=== PATIENT | female | born 1955 | race Caucasian/White ===

== ENCOUNTER 2021-12-19 18:51 | Emergency (ER) | payer MEDICARE, BC, SELFPAY ==
[2021-12-19 19:12] VITALS: BP 123/99; PULSE 84; RESP 20; TEMP 37.1; O2SAT 97; BMI 33.7
--- NOTE | 2021-12-19 19:40 | ED.GENADULT ---
HPI - General Adult General Time Seen by Provider: 19:40 Date Seen: 12/19/21 Chief complaint: Weakness Stated complaint: Weak, legs swelling Time Seen by Provider: 12/19/21 19:03 Source: patient, family and RN notes reviewed Mode of arrival: ambulatory Limitations: no limitations History of Present Illness HPI narrative: Patient is a 60-year-old female coming in of her own accord accompanied by a female relative woman believes her daughter. Her main concern is her heart and swelling. She admits she has not felt right since having COVID October 13. Her daughter tested positive on October 11 and she tested positive 2 days later. Initially she was not that bad but 2 weeks in she states she became quite sick. She called the triage nurse today who recommended she be evaluated in the ER tonight. She feels both of her legs are swollen, feels like she has lost the indentation of the definition of the muscle on the side the legs and behind the ankle bones. She states her legs feel full. She feels short of breath particularly with activity. Going upstairs she states she gets quite winded. She states she is still coughing from the COVID but believes that 1 of her blood pressure medicines contributes to this. She is on losartan. She also has further concerns of feeling weak, arthralgias with elbows and wrists hurting. She states she gets tingling in her fingers. She has had a shooting pain in the right side of her head that is been there this week. No visual changes no other underlying headache changes. Her blood pressure has been elevated as well. She does have hypertension but prior to call that was controlled. She has been monitoring it has been in the 140s to 150s systolic. She has not noted any arrhythmia as such as palpitations or abnormal heart beating but then later she states sometimes her heart beat is been irregular on the pulse monitoring anywhere from 70-90. She does not feel this symptomatically however. She admittedly is concerned about her heart with the swelling in the legs. Her daughter wonders if she could have been acutely exposed to COVID again. Reviewed that we could test with antigen testing but that the PCR theroretically can remain positive for 3 months. Related Data Allergies Allergy/AdvReac Type Severity Reaction Status Date / Time adhesive Allergy Verified 12/19/21 19:12 hydrocodone Allergy Verified 12/19/21 19:12 morphine Allergy Verified 12/19/21 19:12 oxycodone Allergy Verified 12/19/21 19:12 topiramate [From Topamax] Allergy Verified 12/19/21 19:12 cats Allergy Uncoded 12/19/21 19:12 PFSH PFS Social History Smoking Status: Former smoker What tobacco products do you use: cigarettes Years smoked: 25 Smoking quit date/years: >15 years ago Do you use any of these nicotine containing products: None Second hand tobacco smoke exposure: No How often do you have a drink containing alcohol: never How often do you have six or more drinks on one occasion: Never AUDIT-C Alcohol total score: 0 Non-prescribed substance use: denies use service: No Exam Const: Vital Signs, click to edit/add: Vital Signs - 24 hr 12/19/21 19:12 12/19/21 21:01 12/19/21 21:00 Temperature 98.8 F Pulse Rate [Apical ] 84 100 Respiratory Rate 20 Blood Pressure [Le ft Upper Arm] 123/99 H Pulse Oximetry 97 96 96 Oxygen Delivery Me thod Room Air Room Air Documenting provider has reviewed patient's vital signs: yes Common normals: no apparent distress, oriented x3, no limitations, healthy appearing, alert and well nourished General appearance: cooperative, comfortable and well kempt Nutritional appearance: overweight HENMT: Common normals: normocephalic, head/scalp atraumatic, hearing grossly normal bilaterally, external ears normal, external nose normal, nasal mucous membranes and turbinates normal, moist oral mucous membranes, oropharynx normal, dentition normal and gingiva normal Head and scalp: normocephalic and atraumatic Nose: external nose normal and nasal mucous membranes and turbinates normal External ear: external ears normal Eye: Common normals: PERRL, EOMs intact bilaterally, conjunctivae normal and no scleral icterus Conjunctiva: conjunctiva(e) normal Pupil: PERRL Neck & C-Spine: Common normals: full ROM, no lymphadenopathy, supple, no meningeal signs, no JVD and thyroid normal Thyroid: thyroid normal Resp: Common normals: normal respiratory effort, no retractions, no use of accessory muscles and clear to auscultation bilaterally Auscultation: clear to auscultation bilaterally Cardio: Common normals: no JVD, regular rate, regular rhythm, S1 normal heart sound, S2 normal heart sound, no gallops, no clicks and no murmurs Rate: regular rate Rhythm: regular rhythm Heart sounds: S1 normal and S2 normal GI: Common normals: Normal to inspection, nondistended, normoactive bowel sounds present, soft to palpation, non-tender, no hepatosplenomegaly, no masses and no bruits Palpation: soft and no hepatosplenomegaly Extremity: Common normals: normal to inspection, full ROM, normal capillary refill, no joint enlargement, no clubbing, cyanosis or edema and no pedal edema Other: She does complain of bilateral calf tenderness when I palpate. I see absolutely no evidence of any edema, no pretibial edema anywhere, no edema on the dorsum of the feet. She is pointing more to work calves were she feels like she has lost some muscle definition that would normally be there. There really is no pitting edema but she is uncomfortable in her calves bilaterally. She has got good symmetric pulses, no skin changes whatsoever of her lower extremities. Neuro: Common normals: oriented x3, CN's II-XII intact bilaterally, moves all extremities, no focal motor deficits, no sensory deficits noted and gait normal Sensorium/orientation: alert Meningeal signs: no meningeal signs Speech: speech normal Psych: Appearance: well kempt Course Reevaluation(s) Reevaluation #1: Patient is requesting something for pain. She does have low back pain but states she also would like it for her legs which are feeling uncomfortable. Have reviewed with her that her white count is normal, chest x-ray looks normal an COVID antigen is negative. We are still waiting on cardiac labs. Her creatinine would allow us to do a 1 time dose of Toradol which she would like to try. I did look her up on [place] prescribing website and she has only had 1 prescription of a benzodiazepine back in May. She has allergies to multiple narcotics. She has been trying aspirin, Tylenol which she does not feel helps her much and Advil. Time: 20:48 Vital Signs Vital signs: Initial Vital Signs Temperature 98.8 F 12/19/21 19:12 Temperature Source Temporal Artery Scan 12/19/21 19:12 Pulse Rate 84 12/19/21 19:12 Pulse Rhythm 12/19/21 19:12 Respiratory Rate 20 12/19/21 19:12 Blood Pressure 123/99 H 12/19/21 19:12 Blood Pressure Mean 107 12/19/21 19:12 Pulse Oximetry 97 12/19/21 19:12 Oxygen Delivery Method 12/19/21 19:12 Vital Signs Temperature 98.8 F 12/19/21 19:12 Pulse Rate 84 12/19/21 19:12 Respiratory Rate 20 12/19/21 19:12 Blood Pressure 123/99 H 12/19/21 19:12 Pulse Oximetry 97 12/19/21 19:12 Oxygen Delivery Method 12/19/21 19:12 Temperature 98.8 F 12/19/21 19:12 Pulse Rate 100 12/19/21 21:01 Respiratory Rate 20 12/19/21 19:12 Blood Pressure 123/99 H 12/19/21 19:12 Pulse Oximetry 96 12/19/21 21:01 Oxygen Delivery Method 12/19/21 21:01 Medical Decision Making Lab Data Lab results reviewed: Yes I reviewed the patient's lab results Labs: Lab Results 12/19/21 12/19/21 12/19/21 Range/Units 20:04 20:05 20:05 WBC 6.65 (4.50-11.00) K/uL RBC 4.36 (4.00-5.20) m/uL Hgb 13.7 (12.0-16.0) gm/dL Hct 40.2 (33.0-51.0) % MCV 92 (80-100) fL MCH 31 (26-34) pg MCHC 34 (32-36) gm/dL RDW Coeff of Seth 12.3 (11.5-15.5) % Plt Count 231 (140-440) K/uL Neut % (Auto) 54.5 (42.0-72.0) % Lymph % (Auto) 34.0 (20-44) % [place] % (Auto) 8.1 (0.0-11.0) % Eos % (Auto) 2.6 (0.0-7.0) % Baso % (Auto) 0.5 (0.0-3.0) % Neut # (Auto) 3.63 (1.7-7.0) K/uL Lymph # (Auto) 2.26 (0.90-2.90) K/uL [place] # (Auto) 0.50 (0.00-0.90) K/UL Eos # (Auto) 0.17 (0.00-0.50) K/uL Baso # (Auto) 0.03 (0.00-0.30) K/uL Abs Immat Gran (auto) 0.02 (0.00-0.30) K/uL D-Dimer Quant (PE/DVT) (0.00-0.50) ug/ml VBG pH (7.32-7.43) VBG pCO2 (40-50) mmHG VBG pO2 (25-47) mmHG VBG HCO3 (21-28) mmol/L Sodium Cancelled Potassium Cancelled Chloride Cancelled Carbon Dioxide Cancelled BUN Cancelled Creatinine Cancelled Estimated Creat Clear Cancelled Estimated GFR Cancelled Glucose Cancelled Calcium Cancelled Magnesium (1.5-2.6) mg/dL Total Bilirubin Cancelled AST Cancelled ALT Cancelled Alkaline Phosphatase Cancelled Troponin I (0.01-0.04) ng/mL C-Reactive Protein Cancelled NT-Pro-B Natriuret Pep (0-125) PG/mL Total Protein Cancelled Albumin Cancelled SARS-CoV-2 Ag (Rapid) negative (Negative) 12/19/21 12/19/21 12/19/21 Range/Units 20:05 20:05 20:05 WBC (4.50-11.00) K/uL RBC (4.00-5.20) m/uL Hgb (12.0-16.0) gm/dL Hct (33.0-51.0) % MCV (80-100) fL MCH (26-34) pg MCHC (32-36) gm/dL RDW Coeff of Seth (11.5-15.5) % Plt Count (140-440) K/uL Neut % (Auto) (42.0-72.0) % Lymph % (Auto) (20-44) % [place] % (Auto) (0.0-11.0) % Eos % (Auto) (0.0-7.0) % Baso % (Auto) (0.0-3.0) % Neut # (Auto) (1.7-7.0) K/uL Lymph # (Auto) (0.90-2.90) K/uL [place] # (Auto) (0.00-0.90) K/UL Eos # (Auto) (0.00-0.50) K/uL Baso # (Auto) (0.00-0.30) K/uL Abs Immat Gran (auto) (0.00-0.30) K/uL D-Dimer Quant (PE/DVT) 0.27 (0.00-0.50) ug/ml VBG pH 7.44 H (7.32-7.43) VBG pCO2 43 (40-50) mmHG VBG pO2 32.3 (25-47) mmHG VBG HCO3 29 H (21-28) mmol/L Sodium 136 Potassium 3.8 Chloride 103 Carbon Dioxide 25 BUN 22 Creatinine 1.1 Estimated Creat Clear 40.49 Estimated GFR 55 Glucose 115 Calcium 9.0 Magnesium 1.9 (1.5-2.6) mg/dL Total Bilirubin 0.3 AST 27 ALT 27 Alkaline Phosphatase 68 Troponin I < 0.01 L (0.01-0.04) ng/mL C-Reactive Protein 0.5 NT-Pro-B Natriuret Pep 82 (0-125) PG/mL Total Protein 7.4 Albumin 4.2 SARS-CoV-2 Ag (Rapid) (Negative) Imaging Data Chest x-ray: Attestation: I have reviewed the pertinent imaging results. Radiologist's impression: Patient: LEÓN CARTAGENA Facility:?[facility] Patient ID:?[id number] Site Patient ID:?[id number]. Site :?[id number] Study:?XRay Chest PORTABLE-12/19/2021 8:19:35 PM Ordering Physician:Mal Rodriguez Final Report: INDICATION: [id number]. TECHNIQUE: Chest 1 views. COMPARISON: None. FINDINGS: Cardiovascular and mediastinum: Heart size and vasculature are normal in caliber and appearance. Lungs and pleural spaces: Elevation the right hemidiaphragm. Low lung volumes. Lungs are clear. No sign of infiltrate or mass. No sign of pleural effusion. No pneumothorax. Bones and soft tissues: No significant findings. IMPRESSION: No acute or significant findings. Dictated by Sheng Adams MD @ 12/19/2021 8:23:20 PM (Electronic Signature) ECG Data Attestation: I personally reviewed and interpreted this ECG as follows: (Sinus rhythm, 84 beats per minute. QT corrected 515 milliseconds. Left bundle branch block.) Prior ECG tracings: not available for review (No prior EKGs in our system.) Interpretation: Have reviewed left bundle branch block in setting of normal cardiac enzymes, would recommend further outpatient workup with an echo to start with. Critical Care Time Critical Care Time Critical Care Time: No Discharge Plan Discharge Clinical Impression: Dyspnea on exertion, LBBB (left bundle branch block) Patient Disposition: Home, Self-Care Condition: Stable Instructions: Dyspnea (ED) Additional Instructions: Need to contact our clinic in get scheduled for followup as soon as possible. I do believe you need an outpatient echo done for further evaluation of your symptoms and to further evaluate the EKG showing left bundle branch block if this is a new finding. You also need to talk to your doctor about your other complaints. One thought is that you may be suffering from lung COVID symptoms. You still need further evaluation and workup regardless. I would like you to see your doctor within the next week if possible. Activity Level: Activity as Tolerated Follow Up/Referrals: Provider,Not a Local [Primary Care Provider] - Stand Alone Forms: Social Media Simplified Info Instructions
--- NOTE | 2021-12-19 19:54 | CRLHL7_ITS ---
For Patients: As a result of the Century Cures Act, medical imaging exams and procedure reports are released immediately into your electronic medical record. You may view this report before your referring provider. If you have questions, please contact your health care provider. INDICATION: [id number]. TECHNIQUE: Chest 1 views. COMPARISON: None. FINDINGS: Cardiovascular and mediastinum: Heart size and vasculature are normal in caliber and appearance. Lungs and pleural spaces: Elevation the right hemidiaphragm. Low lung volumes. Lungs are clear. No sign of infiltrate or mass. No sign of pleural effusion. No pneumothorax. Bones and soft tissues: No significant findings. IMPRESSION: No acute or significant findings. Dictated by Sheng Adams MD @ 12/19/2021 8:23:20 PM (Electronically Signed)
[2021-12-19 20:11] LABS: Basophils Absolute Auto 0.03 K/uL (0.00-0.30); Basophils Percent Auto 0.5 % (0.0-3.0); Eosinophils Absolute Auto 0.17 K/uL (0.00-0.50); Eosinophils Percent Auto 2.6 % (0.0-7.0); Hematocrit 40.2 % (33.0-51.0); Hemoglobin* 13.7 gm/dL (12.0-16.0); Immature Granulocytes Abs Auto 0.02 K/uL (0.00-0.30); Lymphocytes Absolute Auto 2.26 K/uL (0.90-2.90); Mean Corpuscular HGB Conc 34 gm/dL (32-36); Mean Corpuscular Hemoglobin 31 pg (26-34); Mean Corpuscular Volume 92 fL (80-100); Monocytes Percent Auto 8.1 % (0.0-11.0); Neutrophils Absolute Auto 3.63 K/uL (1.7-7.0); Neutrophils Percent Auto 54.5 % (42.0-72.0); Platelet Count* 231 K/uL (140-440); RDW Coefficient of Variation % 12.3 % (11.5-15.5); Red Blood Count 4.36 m/uL (4.00-5.20); White Blood Count* 6.65 K/uL (4.50-11.00)
[2021-12-19 20:12] LABS: HCO3 VBG 29 mmol/L (21-28); PCO2 VBG 43 mmHG (40-50); PO2 VBG 32.3 mmHG (25-47); Slide Review Reflex No; pH VBG 7.44 (7.32-7.43)
[2021-12-19 20:26] LABS: SARS Antigen* negative (Negative)
[2021-12-19 20:27] LABS: Albumin* 4.2 g/dL (3.3-5.0); Chloride* 103 mmol/L (96-114)
[2021-12-19 20:28] LABS: Potassium* 3.8 mmol/L (3.6-5.1); Sodium* 136 mmol/L (135-149)
[2021-12-19 20:30] LABS: Creatinine* 1.1 mg/dL (0.5-1.5); Est. Creatinine Clearance* 40.49; Estimated Glomerular Filt Rate 55 ml/min
--- OUTSIDE RECORDS SUMMARY | 2021-12-19 20:30 | XMS_ITS | Encounter Summary ---
:1955 Author Organization [facility] Address [address] [place] [address] Care Team Providers Name Role Phone Unavailable Primary Care Provider Unavailable Encounter Details Date Type Department Care Team Description 04/10/2015 Hospital Encounter [facility]X [facility] Singh Szymanski, P.A.-CAugusto [address], [place] [address] Social History Tobacco Use Types Packs/Day Years Used Date Smoking Tobacco: Never Assessed Sex Assigned at Date Recorded Not on file documented as of this encounter Medications at Time of Discharge Medication Sig Dispensed Refills Start Date End Date calcium carbonate (OS-KMEAL) Take 1 tablet by 0 1,250 mg (500 mg calcium) mouth 2 (two) tablet times a day. docosahexaenoic acid-epa Take 1,000 mg by 0 05/20 120-180 mg capsule mouth. hydroCHLOROthiazide Take 1 tablet by 0 05/18/2012 (HYDRODIURIL) 25 mg tablet mouth daily. losartan (COZAAR) 50 mg tablet Take 1 tablet by 0 05/18/2012 mouth daily. iqyhawtwgrbi-Xy-eucm-minerals Take 2 tablets by 0 05/20/2011 tablet mouth 2 (two) times a day. omeprazole (PriLOSEC) [address] Take by mouth. 0 0 05/18/2012 capsule documented as of this encounter Progress Notes Maria Antonia Kidd, O.P.A.-C. - 04/10/2015 2:33 PM CST [id number] CHIEF COMPLAINT/REASON FOR VISIT Followup of right intraarticular fracture of the right wrist/distal radius. HISTORY OF PRESENT ILLNESS Ms. Hedrick presents to clinic today for followup of right upper extremity/distal radius fracture initially injured on 02/13/2015. Patient was seen the Emergency Department, splinted, and followed up in the Department of Orthopedics on 02/16/2015 where after examination there was a high index of suspicion of further injury. So a CT scan was requested. CT scan was 02/23/2015. Shows an increasing obliquely oriented, slightly comminuted intraarticular fracture involving the distal right radial metaphysis, approximately 2 mm articular step-off, and a possible subacute avulsion fracture along the dorsal aspect of the STT joint. Dr. Tavares reviewed the x-rays and recommended we put her in a cast forno less than 6 weeks. It has now exceeded the 6-week savanna since casting. The patient is making sequential visits for the healing process which she has been doing remarkably well. She denies any furtherinjury or trauma to the right upper extremity. Patient is right-hand dominant. MEDICATIONS As per electronic medical record without changes dated 04/10/2015. ALLERGIES Per electronic medical record without changes dated 04/10/2015. VITAL SIGNS Please see electronic medical record under nursing notes dated 04/10/2015. PHYSICAL EXAMINATION GENERAL: Ms. Hedrick is a 60-year-old female in no acute distress. Ambulatory, weight-bearing with age in consideration. Oriented x3. EXTREMITIES: Cast was removed from the right upper extremity. There was no edema, erythema, ecchymosis, deformity, or tenderness to palpation of the fracture site. Range of motion was somewhat diminished secondary to prolonged immobilization. Digits were with full active range of motion with neurovascular intact to include all digits. DIAGNOSTICS X-rays today showed a very well-resolving right distal radius fracture. IMPRESSION/REPORT/PLAN Resolving right distal radius fracture. PLAN: We did transition her into a foam fit brace today medium size right, and recommend that she begin range of motion and strengthening exercises. Also encouraged her to begin range of motion activities for restrengthening, reconditioning, and rehabilitation. The patient agreed to this. The patient was very satisfied with the clinical visit. Will follow up in approximately 1 month. All questions were answered. Maria Antonia Kidd P.A.-C./baudilio Electronically Signed By: MARIA ANTONIA KIDD On: 04/13/2015 02:46 PM Source: [facility] MHSDOLBEYNONRADSYS Document Id: [id number] BATOR OPERATOR documented in this encounter Miscellaneous Notes Miscellaneous - Maria Antonia Kidd O.P.A.-C. - 04/10/2015 3:38 PM INCUBATOR OPERATOR Ambulatory Patient Summary [facility] [address] [place] [id number] Visit Information Name: ARA HEDRICK [facility] Number: [id number] Current Date: 04/10/2015 15:38:18 Physicians Attending Provider: MARIA ANTONIA KIDD Primary Care Provider: ALYSHA HOPPER MD ARA HEDRICK has been given the following list of follow-up instructions, medication list, and patient education materials: Follow-up Instructions Your Medications Here is a list of your medications. It is important to take your medications as directed. Use a pillbox or chart to help remind you to take your medications. Please let your doctor or nurse know if you have problems taking your medications. Medication/Strength How to Take Indications/Special Instructions/Comments/Notes for Patient Medication Changes/Routing busPIRone (BuSpar) Oral, three times a day hydrochlorothiazide (hydrochlorothiazide) Oral, once a day LORazepam (LORazepam) losartan (losartan) Oral, once a day meloxicam (meloxicam) Oral, once a day omeprazole (omeprazole) Oral, once a day traZODone (traZODone) Oral venlafaxine (Effexor) Oral Stop Taking the Following Medications: Medication list as of 04-10-15 15:38 Attention: If you have any medications at home that are not on this list, DO NOT take them until youcontact your provider for clarification. Give a copy of your medication list to your primary care provider. Update your medication list any time medications or doses are changed and carry your medication list at all times in case of emergency. Electronically Signed By: MARIA ANTONIA KIDD Signed On:10-APR-2015 15:22:16 Your Allergies & Intolerances Substance Reaction Symptoms Category Comments beta blockers Drug Topamax Drug Lyrica Drug HYDROcodone Drug oxyCODONE Drug Your Problem List Problem Status Onset Comments Major depressive disorder, recurrent, unspecified Active Your Upcoming Appointments Date Time Location Provider No Appointments found Attention: Contact your local Clinic if further appointment detail needed. Consider Using Patient Online Services Patient Online Services is a secure online and Mobile application that lets you: ?? View lab and test results ?? View portions of your medical record including clinical notes, immunizations and discharge summaries ?? Request an appointment or medication refill ?? Review your appointment schedule ?? Send secure messages to your care team Its easy to create an account if you dont have one. Go to [email or web address] and click on Create Your Account. Then, follow the directions to complete the online form. Youll be asked for your [facility] number which you can find at the top of this document. Your Goals/Additional instructions: Source: [facility] POWERCHART Document Id: [id number] BATOR OPERATOR Miscellaneous - Maria Antonia Kidd O.P.A.-C. - 04/10/2015 3:38 PM INCUBATOR OPERATOR Ambulatory Discharge Medication List [facility] [address] [place] [id number] Visit Information Name: ARA HEDRICK [facility] Number: [id number] Visit Date: 04/10/2015 15:38:17 Attending Provider: MARIA ANTONIA KIDD Primary Care Provider: ALYSHA HOPPER MD ARA HEDRICK has been given the following list of medications: Your Medications It is important to take your medications as directed. Use a pill box or chart to help remind you to take your medications. Please let your doctor or nurse know if you have problems taking your medications. Medication/Strength How to Take Indications/Special Instructions/Comments/Notes for Patient Medication Changes/Routing busPIRone (BuSpar) Oral, three times a day hydrochlorothiazide (hydrochlorothiazide) Oral, once a day LORazepam (LORazepam) losartan (losartan) Oral, once a day meloxicam (meloxicam) Oral, once a day omeprazole (omeprazole) Oral, once a day traZODone (traZODone) Oral venlafaxine (Effexor) Oral Stop Taking the Following Medications: Medication list as of 04-10-15 15:38 Attention: If you have any medications at home that are not on this list, DO NOT take them until youcontact your provider for clarification. Give a copy of your medication list to your primary care provider. Update your medication list any time medications or doses are changed and carry your medication list at all times in case of emergency. Electronically Signed By: MARIA ANTONIA KIDD PA Signed On:10-APR-2015 15:22:16 Additional Information: Source: [facility] POWERCHART Document Id: [id number] BATOR OPERATOR Miscellaneous - Melvi De L.PAugustoNAugusto - 04/10/2015 2:38 PM CST Adult Oracle Adf Developer Intake/History Adult Oracle Adf Developer Intake/History Entered On: 04/10/2015 14:40 INCUBATOR OPERATOR Performed On: 04/10/2015 14:38 INCUBATOR OPERATOR by MELVI DE LPN Intake Chief Complaint : Recheck right distal radius fx. Arrives in [facility]. Onset of Symptoms : 01/30/15 MELVI DE LPN - 04/10/2015 14:38 INCUBATOR OPERATOR General Info Information Given By : Patient Languages : Faroese Is Patient Female and 13-50 no hysterectomy : No MELVI DE LPN - 04/10/2015 14:38 INCUBATOR OPERATOR Subjective Pain Symptoms : No MELVI DE LPN - 04/10/2015 14:38 INCUBATOR OPERATOR Dependent Habits Exposure to Tobacco Smoke : Other: former Smoking Status : Former smoker Tobacco 2A : Yes Tobacco Use/Currently Using : No Tobacco Use/Last 30 Days : No Tobacco Use/Last 12 months : No Tobacco Last Use/Month : March Tobacco Last Use/Year : 1992 MELVI DE LPN - 04/10/2015 14:38 INCUBATOR OPERATOR Caffeine Use Grid Caffeine Use : Current Type : Coffee Frequency : Daily MELVI DE LPN - 04/10/2015 14:38 INCUBATOR OPERATOR Source: [facility] POWERCHART Document Id: [id number] INCUBATOR OPERATOR!24 BATOR OPERATOR documented in this encounter Plan of Treatment Not on filedocumented as of this encounter Procedures Procedure Name Priority Date/Time Associated Diagnosis Comme nts DX WRIST RIGHT 3+ Routine 04/10/2015 2:51 PM Resu lts for this VIEWS INCUBATOR OPERATOR procedure are i n the results section. documented in this encounter Results DX Wrist Right 3+ Views (04/10/2015 2:51 PM INCUBATOR OPERATOR) Anatomical Region Laterality Modality Upper Extremity, Wrist Right Radiographic Imag ing Specimen (Source) Anatomical Collection Method Collection Time Re ceived Time Location / / Volume Laterality 04/10/2015 2:51 PM INCUBATOR OPERATOR Addenda Addendum by Provider, Samra Booker 04/10/2015 2:51 PM INCUBATOR OPERATOR RAD^^^OW XR Wrist Right 3 or more views 04/10/2015 14:51:52 Impressions 04/11/2015 11:57 AM INCUBATOR OPERATOR Skeletally mature individual. Good bone quality. Has a healing radial styloid fracture. Fractur e goes into the radio scaphoid fossa. Fracture has some depres kenan about 2 to 3 mm. Fracture does look to be healing. Also h as a displaced ulnar styloid fracture which may be more chronic. Narrative 04/11/2015 11:57 AM INCUBATOR OPERATOR EXAM: XR Wrist Right 3 or more views INDICATION: right distal radius fracture COMPARISON: None. Procedure Note Gregg Zuniga M.D. / Provider, Birgit cazares M.D. - 07/25/2016 EXAM: XR Wrist Right 3 or more views INDICATION: right distal radius fracture COMPARISON: None. IMPRESSION: Skeletally mature individual . Good bone quality. Has a healing radial styloid fracture. Fractur e goes into the radio scaphoid fossa. Fracture has some depres kenan about 2 to 3 mm. Fracture does look to be healing. Also h as a displaced ulnar styloid fracture which may be more chronic. Historical Provider IMG DIAGNOSTIC IMAGING PROCE CHEL documented in this encounter Visit Diagnoses Not on filedocumented in this encounter Additional Health Concerns Assessment Noted Time PHQ-9 Depression Total Score: 20 02/13/2015 2:45 PM CS T documented as of this encounter
--- OUTSIDE RECORDS SUMMARY | 2021-12-19 20:30 | XMS_ITS | Encounter Summary ---
:1955 Author Organization [facility] Address [address] [place] [address] Care Team Providers Name Role Phone Unavailable Primary Care Provider Unavailable Encounter Details Date Type Department Care Team Description 11/10/2016 Hospital Encounter HX [facility] Arabella Mauricio M.D. [address] [place], [place] [phone] (Wo rk) Social History Tobacco Use Types Packs/Day Years Used Date Smoking Tobacco: Unknown Sex Assigned at Date Recorded Not on file documented as of this encounter Medications at Time of Discharge Medication Sig Dispensed Refills Start Date End Date calcium carbonate (OS-KEMAL) Take 1 tablet by 0 1,250 mg (500 mg calcium) mouth 2 (two) tablet times a day. docosahexaenoic acid-epa Take 1,000 mg by 0 05/20 120-180 mg capsule mouth. hydroCHLOROthiazide Take 1 tablet by 0 05/18/2012 (HYDRODIURIL) 25 mg tablet mouth daily. losartan (COZAAR) 50 mg tablet Take 1 tablet by 0 05/18/2012 mouth daily. iwqyxhnnwgbk-Pc-igwr-minerals Take 2 tablets by 0 05/20/2011 tablet mouth 2 (two) times a day. omeprazole (PriLOSEC) [address] Take by mouth. 0 0 05/18/2012 capsule documented as of this encounter Progress Notes Arabella Mauricio M.D. - 11/10/2016 10:55 AM CDT [id number] HISTORY OF PRESENT ILLNESS León is a pleasant 66-year-old female who comes in today for her left shoulder. She had left shoulder pain for about 3 weeks. She thinks she has bursitis. She had it in her contralateral shoulder years ago and it responded well to injection. She feels like she is losing some strength. She has pain at night that wakes her up every night from sleep. She has some weakness with her arm out to her side. It does radiate down the side of her arm. PHYSICAL EXAMINATION Her left shoulder skin is benign. She has tenderness over the biceps tendon sheath. She has no AC joint tenderness. She had 160 degrees of active abduction but does hesitate above 90 degrees. She has 5- out of 5 strength to resisted abduction. She has good internal and external rotation. She has positive Neer and Gunderson impingement signs. She is otherwise neurovascularly intact. IMPRESSION/REPORT/PLAN León's symptoms are consistent with left shoulder impingement and subacromial bursitis. At this point, I do think a cortisone injection would benefit her as she has responded well to cortisone in multiple joints previously. Risks, benefits, alternatives to a left shoulder subacromial corticosteroidinjection were explained. She agreed to proceed. Her left shoulder sterilely prepped with ChloraPrep. A final pause performed using a 21-gauge needle to inject 8 mL of 1% lidocaine and 9 mg of Celestone. She tolerated this well without complication. We will plan on seeing her back in clinic on an as-needed basis. Arabella Mauricio M.D./baudilio Electronically Signed By: ARABELLA MAURICIO MD On: 11/10/2016 12:19 PM Source: [facility] MHSDOLBEYNONRADSYS Document Id: [id number] documented in this encounter Miscellaneous Notes Telephone Encounter - Brennen Benitez C.M.A. - 11/19/2016 11:47 AM CDT Courtesy Call From: BRENNEN BENITEZ CMA ( Orthopedic Nurse) To: Orthopedic Nurse; Sent: 11/19/2016 11:47:53 CDT Subject: Courtesy Call S - Cortisone injection follow up B - Patient seen on 11/10/[address] Mauricio and given a left shoulder cortisone injection A - Courtesy Call R - Left message to call back Source: [facility] POWERCHART Document Id: [id number] Miscellaneous - Arabella Mauricio M.D. - 11/10/2016 11:18 AM CDT Ambulatory Patient Summary [address] [id number] Visit Information Name: OSIEL LEÓN Pancho [facility] Number: [id number] Current Date: 11/10/2016 11:18:52 Physicians Attending Provider: ARABELLA MAURICIO MD Primary Care Provider: PCP, LEÓN PEPE has been given the following list of [...] Take Indications/Special Instructions/Comments/Notes for Patient Medication Changes/Routing hydrochlorothiazide (hydrochlorothiazide) Oral, once a day losartan (losartan) Oral, once a day omeprazole (omeprazole) Oral, once a day traZODone (traZODone) Oral venlafaxine (Effexor) Oral Stop Taking the Following Medications: busPIRone (BuSpar) LORazepam (LORazepam) meloxicam (meloxicam) Medication list as of 11-10-16 11:18 Attention: If you have any medications at home that are not on this list, DO NOT take them until youcontact your provider for clarification. Give a copy of your medication list to your primary care provider. Update your medication list any time medications or doses are changed and carry your medication list at all times in case of emergency. Electronically Signed By: ARABELLA MAURICIO MD Signed On:10-NOV-2016 11:18:49 Your Allergies & Intolerances Substance Reaction Symptoms [...] if you dont have one. Go to [email or web address] and click on Create Your Account. Then, follow the directions to complete the online form. Youll be asked for your [facility] number which you can find at the top of this document. Your Goals/Additional instructions: Source: [facility] POWERCHART Document Id: [id number] Miscellaneous - Arabella Mauricio M.D. - 11/10/2016 11:18 AM CDT Ambulatory Discharge Medication List [address] [id number] Visit Information Name: LEÓN HEDRICK [facility] Number: [id number] Current Date: 11/10/2016 11:18:51 Attending Provider: ARABELLA MAURICIO MD Primary Care Provider: PCP, ELSEWHERE LEÓN HEDRICK has been given the following list of medications: Your Medications It is important to take your medications as directed. Use a pill box or chart to help remind you to take your medications. Please let your doctor or nurse know if you have problems taking your medications. Medication/Strength How to Take Indications/Special Instructions/Comments/Notes for Patient Medication Changes/Routing hydrochlorothiazide (hydrochlorothiazide) Oral, once a day losartan (losartan) Oral, once a day omeprazole (omeprazole) Oral, once a day traZODone (traZODone) Oral venlafaxine (Effexor) Oral Stop Taking the Following Medications: busPIRone (BuSpar) LORazepam (LORazepam) meloxicam (meloxicam) Medication list as of 11-10-16 11:18 Attention: If you have any medications at home that are not on this list, DO NOT take them until youcontact your provider for clarification. Give a copy of your medication list to your primary care provider. Update your medication list any time medications or doses are changed and carry your medication list at all times in case of emergency. Electronically Signed By: ARABELLA MAURICIO MD Signed On:10-NOV-2016 11:18:49 Additional Information: Source: [facility] POWERCHART Document Id: [id number] Miscellaneous - Brennen Benitez C.MEdward - 11/10/2016 11:05 AM CDT Adult Metabolic Specialist Intake/History Adult Metabolic Specialist Intake/History Entered On: 11/10/2016 11:07 CDT Performed On: 11/10/2016 11:05 CDT [address] B[address]ITEZ [facility] Intake Chief Complaint : Left shoulder pain for about three weeks, no trauma. Pain is constant, more painful with motion. Losing strength Ambulatory Intake Additional Information : Refused vitals BRENNEN BENITEZ [facility] - 11/10/2016 11:05 CDT General Info Information Given By : Patient Preferred Communication Mode : Verbal Languages : Citizen Of [place] Is Patient Female and 13-50 no hysterectomy : No BRENNEN BENITEZ [facility] - 11/10/2016 11:05 CDT Subjective Pain Symptoms : Yes BRENNEN BENITEZ [facility] - 11/10/2016 11:05 CDT Pain Scale Pain Scale Verbal 0-10 : Open BRENNEN BENITEZ [facility] - 11/10/2016 11:05 CDT Pain Pain Assessment Grid Pain 1 Location : Shoulder Laterality : Left Intensity : [address] [facility] - 11/10/2016 11:05 CDT Dependent Habits Exposure to Tobacco Smoke : Other: former Smoking Status : Former smoker Tobacco 2A : Yes Tobacco Use/Currently Using : No Tobacco Use/Last 30 Days : No Tobacco Use/Last 12 months : No Tobacco Last Use/Month : March Tobacco Last Use/Year : [address] [facility] - 11/10/2016 11:05 CDT Caffeine Use Grid Caffeine Use : Current Type : Coffee Frequency : Daily BRENNEN BENITEZ [facility] - 11/10/2016 11:05 CDT Source: [employer] Document Id: [id number] CDT!33 documented in this encounter Plan of Treatment Not on filedocumented as of this encounter Visit Diagnoses Not on filedocumented in this encounter Additional Health Concerns Assessment Noted Time PHQ-9 Depression Total Score: 20 02/13/2015 2:45 PM CS T documented as of this encounter
--- OUTSIDE RECORDS SUMMARY | 2021-12-19 20:30 | XMS_ITS | Encounter Summary ---
:1955 Author Organization [facility] Address [address] [place] [address] Care Team Providers Name Role Phone Unavailable Primary Care Provider Unavailable Encounter Details Date Type Department Care Team Description 02/16/2015 Hospital Encounter HX [facility] Singh Szymanski, P.A.-CAugusto [address] [place], [place] [address] Social History Tobacco Use [...] 1 tablet by 0 05/18/2012 mouth daily. sdpmwujqsxon-Fa-itft-minerals Take 2 tablets by 0 05/20/2011 tablet mouth 2 (two) times a day. omeprazole (PriLOSEC) [address] Take by mouth. 0 0 05/18/2012 capsule documented as of this encounter Progress Notes Maria Antonia Kidd, O.P.A.-C. - 02/16/2015 1:31 PM CST [id number] CHIEF COMPLAINT/REASON FOR VISIT Follow up of right wrist pain. HISTORY OF PRESENT ILLNESS Ms. Hedrick presents to clinic today complaining of right wrist pain. Patient states that she fell,described as a FOOSH-type injury impacting her right wrist and she was seen in Emergency Department.X-rays were taken, which showed an index of suspicion of a minimally, impacted, acute subacute fracture involving the distal right radial metaphysis. Dr. Zuniga did review the x-rays and recommended the patient follow up in clinic based on the physical examination and CT scan. Patient prior to departure from the emergency department, she was put into a thumb spica foam fit brace, which she states is very uncomfortable as it puts pressure where she is most tender. She identifies the distal radius/the scaphoid as point of most tenderness. She denies any further injury or trauma to the right upper extremity. Patient is left-hand dominant. MEDICATIONS As per electronic medical record without changes dated 02/16/2015. ALLERGIES Per electronic medical record without changes, 02/16/2015. VITAL SIGNS Please see electronic medical record under nursing notes 02/16/2015. PHYSICAL EXAMINATION GENERAL: Ms. Hedrick is a 59-year-old female in no acute distress. Ambulatory, weightbearing without limp. Oriented x3. EXTREMITIES: Right wrist presents without edema, erythema, ecchymosis or deformity. There was tenderness to palpation at the distal radius and the scaphoid with palpation. Raquel's was mildly positive. Gamekeeper's was negative. Wrist range of motion was somewhat delayed secondary to patient guard ing the distal radius/scaphoid. There is 5/5 lens grinder and polisher strength. No elicitation of pain proximately and there is full active range of motion all joints distally. DIAGNOSTICS X-rays, 02/13/2015, were reviewed. IMPRESSION/REPORT/PLAN As per Dr. Zuniga's directives, if physical examination left a high index of suspicion of an occult fracture, a CT scan will be ordered. We did order a CT scan for her today. Recommended she wear her brace loosely, so that way when I add pressure over the injury site and follow up CT results. Patient was very satisfied with clinical visit. All questions were answered. Maria Antonia Kidd P.A.-C./baudilio Electronically Signed By: MARIA ANTONIA KIDD On: 02/23/2015 01:16 PM Source: [facility] MHSDOLBEYNONRADSYS Document Id: [id number] MAN documented in this encounter Miscellaneous Notes Miscellaneous - Maria Antonia Kidd O.P.A.-C. - 02/16/2015 2:13 PM SLIPMAN Ambulatory Patient Summary [facility] [address] [place], [place] [id number] Visit Information Name: LEÓN HEDRICK [facility] Number: [id number] Current Date: 02/16/2015 14:13:30 Physicians Attending Provider: MARIA ANTONIA KIDD Primary Care Provider: ALYSHA HOPPER MD LEÓN HEDRICK has been given the following [...] the Following Medications: Medication list as of 02-16-15 14:13 Attention: If you have any medications at [...] Electronically Signed By: MARIA ANTONIA KIDD Signed On:16-FEB-2015 14:13:15 Your Allergies & Intolerances Substance Reaction Symptoms Category Comments beta blockers Drug Lyrica Drug HYDROcodone Drug oxyCODONE Drug Your Problem List Problem Status Onset Comments Major depressive disorder, recurrent, unspecified Active Your Upcoming Appointments Date Time Location Provider 03/06/2015 14:00 [facility] Alysha Galvan MD Attention: Contact your local Clinic if further [...] if you dont have one. Go to [email or web address] and click on Create Your Account. Then, follow the directions to complete the online form. Youll be asked for your [facility] number which you can find at the top of this document. Your Goals/Additional instructions: Source: [facility] POWERCHART Document Id: [id number] MAN Miscellaneous - Maria Antonia Kidd O.P.A.-C. - 02/16/2015 2:13 PM SLIPMAN Ambulatory Discharge Medication List [facility] [address] [place] [id number] Visit Information Name: LEÓN HEDRICK [facility] Number: [id number] Visit Date: 02/16/2015 14:13:29 Attending Provider: MARIA ANTONIA KIDD Primary Care Provider: ALYSHA HOPPER MD LEÓN HEDRICK has been given the following [...] the Following Medications: Medication list as of 02-16-15 14:13 Attention: If you have any medications at [...] Electronically Signed By: MARIA ANTONIA KIDD Signed On:16-FEB-2015 14:13:15 Additional Information: Source: [facility] Document Id: [id number] MAN Miscellaneous - Ivis Stephens RAugustoN. - 02/16/2015 1:44 PM CST Radiology Scheduling Questionnaire Radiology Scheduling Questionnaire Entered On: 02/16/2015 13:45 SLIPMAN Performed On: 02/16/2015 13:44 SLIPMAN by IVIS STEPHENS LPN Radiology Scheduling Questionnaire Rad/Relevan Medications Grid Amiodarone : No Avandamet : No Glucophage : No Glucovance : No Metaglip : No Metformin : No Coumadin (warfarin) : No Plavix (clopidogrel) : No IVIS STEPHENS LPN - 02/16/2015 13:44 SLIPMAN Rad/Iodinated Contrast Risk Grid Asthma : No CHF : No Chronic Renal Failure : No Diabetes : No Dialysis : No Dyspnea : No Emphysema/COPD : No Gout : No Hay Fever : No Iodine Allergy : No Multiple Myeloma : No One Kidney : No : No Previous MT : No Other (document in Comments) : No IVIS STEPHENS LPN - 02/16/2015 13:44 SLIPMAN Previous Films : No Previous Films Requested Today : No IVIS STEPHENS LPN - 02/16/2015 13:44 SLIPMAN Source: [facility] Document Id: [id number] SLIPMAN!29 MAN Miscellaneous - Ivis Stephens, RAugustoN. - 02/16/2015 1:37 PM CST Adult Cooker Sulfite Intake/History Adult Cooker Sulfite Intake/History Entered On: 02/16/2015 13:38 SLIPMAN Performed On: 02/16/2015 13:37 SLIPMAN by IVIS STEPHENS [facility] Intake Chief Complaint : right wrist pain xray done 02/13/[address] or wrist IVIS STEPHENS LPN - 02/16/2015 13:37 SLIPMAN General Info Information Given By : Patient Languages : Ivorian Is Patient Female and 13-50 no hysterectomy : No IVIS STEPHENS LPN - 02/16/2015 13:37 SLIPMAN Subjective Pain Symptoms : Yes IVIS STEPHENS LPN - 02/16/2015 13:37 SLIPMAN Pain Scale Pain Scale Verbal 0-10 : Open IVIS STEPHENS LPN - 02/16/2015 13:37 SLIPMAN Pain Pain Assessment Grid Pain 1 Location : Wrist Laterality : Right IVIS STEPHENS LPN - 02/16/2015 13:37 SLIPMAN Dependent Habits Tobacco Use/Currently Using : No Exposure to Tobacco Smoke : Other: former Smoking Status : Former smoker IVIS STEPHENS LPN - 02/16/2015 13:37 SLIPMAN Caffeine Use Grid Caffeine Use : Current Type : Coffee Frequency : Daily IVIS STEPHENS LPN - 02/16/2015 13:37 SLIPMAN [facility] Document Id: [id number] SLIPMAN!25 MAN documented in this encounter Plan of Treatment Not on filedocumented as of this encounter Visit Diagnoses Not on filedocumented in this encounter Additional Health Concerns Assessment Noted Time PHQ-9 Depression Total Score: 20 02/13/2015 2:45 PM CS T documented as of this encounter
--- OUTSIDE RECORDS SUMMARY | 2021-12-19 20:30 | XMS_ITS | Encounter Summary ---
:[address] [facility] Address [address] [place] [address] Care Team Providers Name Role Phone Unavailable Primary Care Provider Unavailable Encounter Details Date Type Department Care Team Description 03/06/2015 Hospital Encounter HX NO MAPPING Micheline Mcknight M.D. [address] [place], [place] [phone] (Wo rk) Social History [...] 1 tablet by 0 05/18/2012 mouth daily. yfmuskuzfasl-Fy-cuzx-minerals Take 2 tablets by 0 05/20/2011 tablet mouth 2 (two) times a day. omeprazole (PriLOSEC) [address] Take by mouth. 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 However, the narrative phrase printed from the coding software may appear abbreviated, or result in slightly different terminology. Coded By: CHRISTIANO LOCKHART Date Saved: 03/14/2015 06:42 pm [facility] Document Id: [id number] documented in this encounter Plan of Treatment Not on filedocumented as of this encounter Visit Diagnoses Not on filedocumented in this encounter Additional Health Concerns Assessment Noted Time PHQ-9 Depression Total Score: 20 02/13/2015 2:45 PM CS T documented as of this encounter
--- OUTSIDE RECORDS SUMMARY | 2021-12-19 20:30 | XMS_ITS | Encounter Summary ---
:1955 Author Organization [facility] Address [address] [place] [address] Care Team Providers Name Role Phone Unavailable Primary Care Provider Unavailable Encounter Details Date Type Department Care Team Description 01/31/2021 Orders Only [facility] PCP [facility] Sa chayito Renteria M.D. [address] [place], [place] [phone] (Wo rk) Social History Tobacco Use Types Packs/Day Years Used Date Smoking Tobacco: Former Sex Assigned at Date Recorded Not on file documented as of this encounter Plan of Treatment Not on filedocumented as of this encounter Visit Diagnoses Not on filedocumented in this encounter Additional Health Concerns Assessment Noted Time PHQ-9 Depression Total Score: 20 02/13/2015 2:45 PM CS T documented as of this encounter
--- OUTSIDE RECORDS SUMMARY | 2021-12-19 20:30 | XMS_ITS | Encounter Summary ---
:[address] [facility] Address [address] [place] [address] Care Team Providers Name Role Phone Unavailable Primary Care Provider Unavailable Encounter Details Date Type Department Care Team Description 03/05/2015 Hospital Encounter HX [facility] Singh Szymanski, P.A.-CAugusto [address] [place], [place] [address] Social History Tobacco Use [...] 1 tablet by 0 05/18/2012 mouth daily. hnrhjgajqhmt-Dk-copl-minerals Take 2 tablets by 0 05/20/2011 tablet mouth 2 (two) times a day. omeprazole (PriLOSEC) [address] Take by mouth. 0 0 05/18/2012 capsule documented as of this encounter Progress Notes Maria Antonia Kidd, O.P.AAugusto-CAugusto - 03/05/2015 10:35 AM CST [id number] CHIEF COMPLAINT/REASON FOR VISIT Followup of right intra-articular fracture involving the distal right radial metaphysis and probablesubacute avulsion fracture along the dorsal aspect of the STT joint. HISTORY OF PRESENT ILLNESS Ms. Hedrick presents to clinic today for followup of cast application x1 day ago secondary to fracture of the right distal radius and subacute avulsion fracture of the dorsum of the STT joint. The patient was initially seen in clinic and x-rays were taken previously which showed no acute pathology. Patient had a CT scan done. CT scan results are as above on the diagnosis. CT scan was reviewed by who recommended a short-arm cast x6 weeks. Patient presented to clinic for follow up of CTresults and casting x1 week ago. She states everything is going well without any complications or problems. Denies any further injury or trauma to the right upper extremity. MEDICATIONS As per electronic medical record without changes dated 03/05/2015. ALLERGIES Per electronic medical record without changes dated 03/05/2015. VITAL SIGNS Please see electronic medical record under nursing notes dated 03/05/2015. PHYSICAL EXAMINATION GENERAL: Ms. Hedrick is a 59-year-old female in no acute distress. Ambulatory, weightbearing without limp. Oriented x3. EXTREMITIES: Right upper extremity presents with a very well-fitted, well-formed thumb spica cast without signs of breakdown. There is full active range of motion of all exposed joints with neurovascular intact to include all digits. DIAGNOSTICS X-rays and CT scan from previous visit were reviewed. Please see EMR for results. IMPRESSION/REPORT/PLAN Resolving right distal radius fracture. PLAN: We will keep her in a cast for another 5 weeks. Recommend that she follow up in 3 weeks from now. We will do a cast check and cast change at that time if necessary and she will continue outpatient care. Patient was very satisfied with clinical visit. All questions were answered. Maria Antonia Kidd P.A.-C./baudilio Electronically Signed By: MARIA ANTONIA KIDD On: 03/07/2015 01:19 PM Source: [facility] MHSDOLBEYNONRADSYS Document Id: [id number] ECT DESIGN ENGINEER documented in this encounter Miscellaneous Notes Miscellaneous - Maria Antonia Kidd O.P.A.-C. - 03/05/2015 1:10 PM PROJECT DESIGN ENGINEER Ambulatory Patient Summary [facility] [address] [place] [id number] Visit Information Name: LEÓN HEDRICK [facility] Number: [id number] Current Date: 03/05/2015 13:10:56 Physicians Attending Provider: MARIA ANTONIA KIDD Primary [...] the Following Medications: Medication list as of 03-05-15 13:10 Attention: If you have any medications at [...] Electronically Signed By: MARIA ANTONIA KIDD Signed On:05-MAR-2015 13:01:48 Your Allergies & Intolerances Substance Reaction Symptoms Category Comments beta blockers Drug Topamax Drug Lyrica Drug HYDROcodone Drug oxyCODONE Drug Your Problem List Problem Status Onset Comments Major depressive disorder, recurrent, unspecified Active Your Upcoming Appointments Date Time Location Provider 03/06/2015 14:00 [facility] Alysha Galvan MD Attention: Contact your local [...] if you dont have one. Go to [email or web address] and click on Create Your Account. Then, follow the directions to complete the online form. Youll be asked for your [facility] number which you can find at the top of this document. Your Goals/Additional instructions: Source: [facility] POWERCHART Document Id: [id number] ECT DESIGN ENGINEER Miscellaneous - Maria Antonia Kidd O.P.A.-C. - 03/05/2015 1:10 PM PROJECT DESIGN ENGINEER Ambulatory Discharge Medication List [address] [phone] Visit Information Name: LEÓN HEDRICK [facility] Number: [id number] Visit Date: 03/05/2015 13:10:54 Attending Provider: MARIA ANTONIA KIDD Primary Care [...] the Following Medications: Medication list as of 03-05-15 13:10 Attention: If you have any medications at [...] Signed By: MARIA ANTONIA KIDD PA Signed On:05-MAR-2015 13:01:48 Additional Information: [facility] Document Id: [id number] ECT DESIGN ENGINEER Miscellaneous - Henny Aragon L.P.N. 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 Intake/History Entered On: 03/05/2015 10:45 PROJECT DESIGN ENGINEER Performed On: 03/05/2015 10:41 PROJECT DESIGN ENGINEER by HENNY ARAGON [facility] Intake Chief Complaint : one week follow up on right forearm fx Onset of Symptoms : 01/30/15 no work comp HENNY ARAGON [facility] - 03/05/2015 10:41 PROJECT DESIGN ENGINEER General Info Information Given By : Patient Preferred Communication Mode : Verbal Languages : Montserratian Is Patient Female and 13-50 no hysterectomy : No HENNY ARAGON [facility] - 03/05/2015 10:41 PROJECT DESIGN ENGINEER Subjective Pain Symptoms : Yes HENNY ARAGON CLEAN OUT DRILLER - 03/05/2015 10:41 PROJECT DESIGN ENGINEER Pain Scale Pain Scale Verbal 0-10 : Open HENNY ARAGON CLEAN OUT DRILLER - 03/05/2015 10:41 PROJECT DESIGN ENGINEER Pain Pain Assessment Grid Pain 1 Location : Lower arm Laterality : Left Intensity : 1 HENNY ARAGON [facility] - 03/05/2015 10:41 PROJECT DESIGN ENGINEER Dependent Habits Exposure to Tobacco Smoke : Other: former Smoking Status : Former smoker Tobacco 2A : Yes Tobacco Use/Currently Using : No Tobacco Use/Last 30 Days : No Tobacco Use/Last 12 months : No HENNY ARAGON LPN - 03/05/2015 10:41 PROJECT DESIGN ENGINEER Caffeine Use Grid Caffeine Use : Current Type : Coffee Frequency : Daily HENNY ARAGON LPN - 03/05/2015 10:41 PROJECT DESIGN ENGINEER Source: [facility] POWERCHART Document Id: [id number] PROJECT DESIGN ENGINEER!31 ECT DESIGN ENGINEER documented in this encounter Plan of Treatment Not on filedocumented as of this encounter Procedures Procedure Name Priority Date/Time Associated Diagnosis Comme nts DX WRIST RIGHT 3+ Routine 03/05/2015 11:07 AM Res ults for this VIEWS PROJECT DESIGN ENGINEER procedure are i n the results section. documented in this encounter Results DX Wrist Right 3+ Views (03/05/2015 11:07 AM PROJECT DESIGN ENGINEER) Anatomical Region Laterality Modality Upper Extremity, Wrist Right Radiographic Imag ing Specimen (Source) Anatomical Collection Method Collection Time Re ceived Time Location / / Volume Laterality 03/05/2015 11:07 AM PROJECT DESIGN ENGINEER Impressions 03/05/2015 11:57 AM PROJECT DESIGN ENGINEER Skeletally mature individual. Good bone quality. There is an intra-articular distal radius fractur e into the scaphoid fossa. Fractured does look to have some very sl ight depression with the step off of a couple millimeters. No signific ant change in alignment from previous x-rays. Narrative 03/05/2015 11:57 AM PROJECT DESIGN ENGINEER EXAM: XR Wrist Right 3 or more views INDICATION: right distal radius fracture COMPARISON: None. Procedure Note Gregg Zuniga M.D. / Provider, Birgit cazares M.D. - 07/31/2016 EXAM: XR Wrist Right 3 or more views INDICATION: right distal radius fracture COMPARISON: None. IMPRESSION: Skeletally mature individual . Good bone quality. There is an intra-articular distal radius fractur e into the scaphoid fossa. Fractured does look to have some very sl ight depression with the step off of a couple millimeters. No signific ant change in alignment from previous x-rays. Kierra Lazar(R), RAugustoTAugusto(R)(M) IMG DIAGNOSTIC IM AGING PROCEDURES documented in this encounter Visit Diagnoses Not on filedocumented in this encounter Additional Health Concerns Assessment Noted Time PHQ-9 Depression Total Score: 20 02/13/2015 2:45 PM CS T documented as of this encounter
--- OUTSIDE RECORDS SUMMARY | 2021-12-19 20:30 | XMS_ITS | Encounter Summary ---
:1955 Author Organization [facility] Address [address] [place] [address] Care Team Providers Name Role Phone Unavailable Primary Care Provider Unavailable Encounter Details Date Type Department Care Team Description 10/24/2014 Hospital Encounter [facility] Kaiden Guerrero M.D. [address] [place] [address], [address] [place], [place] [id number] (Wo rk) Social History Tobacco Use Types Packs/Day Years Used Date Smoking Tobacco: Never Assessed Sex Assigned at Date Recorded Not on file documented as of this encounter Last Filed Vital Signs Vital Sign Reading Time Taken Comments Blood Pressure 120/70 10/24/2014 3:02 PM CDT Pulse - - Temperature - - Respiratory Rate - - Oxygen Saturation - - Inhaled Oxygen Concentration - - Weight - - Height - - Body Mass Index - - documented in this encounter Medications at Time of Discharge [...] 1 tablet by 0 05/18/2012 mouth daily. qwmrhcrtteif-Fi-zqwl-minerals Take 2 tablets by 0 05/20/2011 tablet mouth 2 (two) times a day. omeprazole (PriLOSEC) [address] Take by mouth. 0 0 05/18/2012 capsule documented as of this encounter Consult Notes Yasmany Guerrero M.D. - 10/24/2014 2:41 PM CDT [id number] CHIEF COMPLAINT/REASON FOR VISIT Low back and right greater than left lower extremity pain. HISTORY OF PRESENT ILLNESS Dr. Schmidt has requested my opinion with regards to Ms. Cartagena's low back and right greater than left lower extremity pain. Ms. Cartagena reports she has had low back pain for the past 25 years but ithas been slowly progressively worsening over the past several years. She has also developed right greater than left lower extremity pain. She describes her pain as being located in the mid portion of her lumbar spine. It then radiates into the left and right side of her low back. She will then have pain that radiates into the right gluteal region, posterior and posterolateral thigh and posterolateralleg to the level of the ankle, then it extends to the dorsum of the right foot. She experiences numbness and tingling in the dorsum of the right foot as well. She experiences pain into the left posterior and posterolateral thigh that does not radiate distal to the knee. The lower extremity pain is worse when she is standing or walking. She denies any focal weakness in her lower extremities although reports at times her right knee can buckle and give out on her. She denies any change in her bowel or bladder habits, fevers or chills, or recent unintentional weight loss. She reports that the worst pain is when she is standing and walking and that is located in the right lower extremity. Ms. Cartagena has had a variety of interventions performed including had an MRI of her lumbosacral spine performed on November 19, 2012. This showed mild narrowing of the central canal at L4-L5 with bilateral cervical recess narrowing and mild right and moderate to severe neural foraminal narrowing. At L5-S1 severe right and moderate left neural foraminal narrowing and multilevel moderate facet arthropathy. Ms. Cartagena has been involved in a variety of things including physical therapy, most recently 1 and 1/2 years ago. She still continues many of the exercises she was shown on her own including sheexercises in a pool which she finds to be helpful. She has had epidural injections performed in the past which have helped her for a short amount of time. She did have radiofrequency denervation performed to what sounds like the right L4-L5 and L5-S1 facet joints which was helpful for her for approximately 8 months when her low back pain was the most prominent issue for her. She uses ice and heat as well as a TENS unit. She has tried a variety of different medications including most recently meloxicam which she is currently using at 15 mg daily. MEDICATIONS Reviewed as per EMR. ALLERGIES Reviewed as per EMR. PAST MEDICAL/SURGICAL HISTORY 1. Hypertension. 2. Major depressive disorder. 3. Migraine headaches. 4. GERD. 5. PTSD. SOCIAL HISTORY Ms. Cartagena lives in [place]. She is currently not employed. She does not use any tobacco products. PHYSICAL EXAMINATION GENERAL: Pleasant 59-year-old female in no acute distress. NEUROLOGICAL: Oriented to person, place and time. Appropriate mood and affect. GAIT: Normal charissa and stride. Toe and heel walking are normal. STRENGTH: All major muscle groups of the bilateral upper and lower extremities have normal and symmetric muscle strength, bulk and tone except for -1 strength with resisted testing of her right hamstrings which is limited by pain this causes in the right gluteal region. REFLEXES: Bilateral upper extremity muscle stretch reflexes are physiologic and symmetric. Plantar responses downgoing bilaterally. Patellar tendon +1/+1. Achilles +1/+1. Plantar responses downgoing bilaterally. Negative Thompson's bilaterally. SENSATION: Normal light touch sensation through upper and lower extremities. STRAIGHT LEG RAISE: On the right causes pain in the right posterior and posterolateral thigh, without any pain radiating distal to the knee. SPINE: Preserved lumbar flexion, -1 lumbar extension. PALPATION: There is tenderness to palpation of the right lower lumbar paraspinals. IMPRESSION/REPORT/PLAN 1. Low back pain and right greater than left lower extremity pain. 2. Lumbar spondylosis. Ms. Cartagena's symptoms and examination and previous imaging studies are most consistent with a right L5 radiculopathy as being the cause of her right lower extremity pain and paresthesias. Other than weakness with testing of her right hamstrings which is limited by pain, she has a normal neurologic examination today. Her symptoms are likely multifactorial as she has multilevel degenerative changes and a 25 year history of low back pain but specifically the right lower extremity pain that she is experiencing is most likely related to an L5 radiculopathy. PLAN: 1. With Ms. Cartagena's persistent symptoms and her physical examination findings today, we are goingto proceed with an MRI of the lumbar spine. 2. I discussed various options for management with Ms. Cartagena including the possibility of having her meet with a spine surgeon with the length of time this pain has persisted. We will discuss this in greater detail when she returns following her MRI. Ms. Cartagena voiced agreement and understanding with this plan. Yasmany Guerrero M.D./baudilio cc: Cleo Schmidt M.D. [address] [place] [address] Electronically Signed By: YASMANY GUERRERO MD On: 10/26/2014 01:12 PM Modified by and Electronically Signed by: YASMANY GUERRERO MD On: 10/26/2014 01:12 PM Source: [facility] MHSDOLBEYNONRADSYS Document Id: [id number] documented in this encounter Miscellaneous Notes Telephone Encounter - Ailyn Meza - 11/21/2014 8:22 AM CDT FB MRI Document Contains Addenda Addendum by AILYN MEZA LPN on 21 November 2014 09:55:59 CDT Order faxed. Addendum by MARY KAY COX on 21 November 2014 09:13:00 CDT From: MARY KAY COX ([facility] [employer]er/[facility]) To: AILYN MEZA LPN; Sent: 11/21/2014 09:13:00 CDT Subject: RE: FB MRI No authorization required. From: AILYN MEZA LPN To: [facility] [employer]er/[facility]; Sent: 11/21/2014 08:22:30 CDT Subject: FB MRI Patient Referred to Provider/Facility: [facility] Ordering Provider: [facility] Ordered: MRI Lumbar Spine Diagnosis: Low back pain When patient was seen on 10-24-2014, she stated she would have insurance on 11-21-2014, she would like to have MRI now. [facility] Document Id: [id number] Electronically signed by Conversion, [facility] Readiness Paraprofessional [id number] at 08/18/2016 1:57 AM CDT Telephone Encounter - Conversion, Historical Provider Ser - 10/26/2014 12:07 PM CDT *Phone Message/Guerrero Document Contains Addenda Addendum by AILYN MEZA on 26 October 2014 14:29:43 CDT Spoke with patient; she stated she will have insurance November 21 and would like to have MRI done after that. From: CANDIDO MOREL ( [employer]) To: Physical Medicine and Rehabilitation Staff; Sent: 10/26/2014 12:07:56 CDT Subject: *Phone Message/Guerrero Caller is: ( x ) Patient ( ) Mother ( ) Father ( ) Spouse ( ) Daughter ( ) Son ( ) Pharmacy ( ) Other: Physician: Patient MRN #: Reason for Call: S: Ara is supposed to have an MRI done and then see Dr. Guerrero after. She is hoping to get a supplemental insurance first so would like to wait and have the MRI done in November sometime before 12-20-[address] Guerrero again. B: A: R: Please call Ara at [phone]. Message: Advice/Action: Source used: ( ) Verbalizes understanding of instructions ( ) Instructed to call back if symptoms worsen or do not resolve ( ) Refused to see provider ( ) Appointment Scheduled ( ) OK to leave message on voice mail ( ) Patient told to expect return call: ( ) today ( ) tomorrow ( ) next work day ( ) Patient's email ( ) Patient told physician out of office, will call upon return call on ( ) ( ) Patient told physician out of office, routed to other physician ( ) Other ( ) Call back telephone number ( ) Call back cell phone number ( ) [facility] Document Id: [id number] Telephone Encounter - Ailyn Meza - 10/24/2014 3:44 PM CDT FB MRI Prior Auth Document Contains Addenda Addendum by AILYN MEZA on 27 October 2014 08:58:27 CDT Spoke with patient, she stated she will have insurance on November 21, would like to wait until then for MRI. Addendum by GILBERT GRIFFITHS on 26 October 2014 09:00:37 CDT From: GILBERT GRIFFITHS ([facility] [employer]/[facility]) To: AILYN MEZA; Sent: 10/26/2014 09:00:37 CDT Subject: RE: FB MRI Prior Auth Patient is self pay, message sent to [employer] to assist patient with financial counseling. From: AILYN MEZA To: [facility] [employer]; Sent: 10/24/2014 15:44:06 CDT Subject: FB MRI Prior Auth Patient Referred to Provider/Facility: [facility] Ordering Provider: [facility] Ordered: Lumbar Spine MRI Diagnosis: Lumbar Radiculopathy Source: [facility] POWERCHART Document Id: [id number] Electronically signed by [facility] Read[facility] Paraprofessional [id number] at 08/18/2016 1:57 AM CDT Miscellaneous - Yasmany Guerrero M.D. - 10/24/2014 3:39 PM CDT Ambulatory Patient Summary [facility] [address] [place] [id number] Visit Information Name: ARA CARTAGENA [facility] Number: [id number] Current Date: 10/24/2014 15:39:36 Physicians Attending Provider: YASMANY GUERRERO MD Primary Care Provider: PCP, ARA PEPE has been given the following list [...] day meloxicam (meloxicam) Oral, once a day mirtazapine (mirtazapine) Oral, once a day (at bedtime) omeprazole (omeprazole) Oral, once a day traZODone (traZODone) Oral venlafaxine (Effexor) Oral Stop Taking the Following Medications: Medication list as of 10-24-14 15:39 Attention: If you have any medications at home that are not on this list, DO NOT take them until youcontact your provider for clarification. Give a copy of your medication list to your primary care provider. Update your medication list any time medications or doses are changed and carry your medication list at all times in case of emergency. Electronically Signed By: YASMANY GUERRERO MD Signed On:24-OCT-2014 15:39:09 Your Allergies & Intolerances Substance Reaction Symptoms Category Comments beta blockers Drug Lyrica Drug HYDROcodone Drug oxyCODONE Drug Your Problem List Problem Status Onset Comments No Problems found Your Upcoming Appointments Date Time Location Provider 11/09/2014 10:45 [facility]BCV PM&R Yasmany Guerrero MD Attention: Contact your local Clinic if [...] if you dont have one. Go to [email or web address] and click on Create Your Account. Then, follow the directions to complete the online form. Youll be asked for your [facility] number which you can find at the top of this document. Your Goals/Additional instructions: Source: [facility] POWERCHART Document Id: [id number] Karina - Yasmany Guerrero M.D. - 10/24/2014 3:39 PM CDT Ambulatory Discharge Medication List [address] [id number] Visit Information Name: OSIELARA [facility] Number: [id number] Visit Date: 10/24/2014 15:39:36 Attending Provider: YASMANY GUERRERO MD Primary Care Provider: PCP, HOMER CARTAGENAGARRISONN Pancho has been given the following list of [...] day meloxicam (meloxicam) Oral, once a day mirtazapine (mirtazapine) Oral, once a day (at bedtime) omeprazole (omeprazole) Oral, once a day traZODone (traZODone) Oral venlafaxine (Effexor) Oral Stop Taking the Following Medications: Medication list as of 10-24-14 15:39 Attention: If you have any medications at home that are not on this list, DO NOT take them until youcontact your provider for clarification. Give a copy of your medication list to your primary care provider. Update your medication list any time medications or doses are changed and carry your medication list at all times in case of emergency. 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 Intake/History Entered On: 10/24/2014 15:05 CDT Performed On: 10/24/2014 15:02 CDT by AILYN MEZA Intake Systolic Blood Pressure : 120 mmHg Diastolic Blood Pressure : 70 mmHg NIBP Mean : 87 mmHg BP Location : Left upper extremity Blood Pressure Cuff Size : Regular Weight Source : Other: pt refused Estimated Weight : 90 kg(Converted to: 198 lb 7 oz) AILYN MEZA - 10/24/2014 15:02 CDT General Info Information Given By : Patient Preferred Communication Mode : Verbal Languages : [place]ese Is Patient Female and 13-50 no hysterectomy : AILYN Patel - 10/24/2014 15:02 CDT Subjective Pain Symptoms : AILYN Patel - 10/24/2014 15:02 CDT Dependent Habits Tobacco Use/Currently Using : No Exposure to Tobacco Smoke : Other: former Smoking Status : Former smoker AILYN MEZA - 10/24/2014 15:02 CDT Source: [facility] POWERCHART Document Id: [id number] CDT!20 documented in this encounter Plan of Treatment Not on filedocumented as of this encounter Visit Diagnoses Not on filedocumented in this encounter
--- OUTSIDE RECORDS SUMMARY | 2021-12-19 20:30 | XMS_ITS | Encounter Summary ---
:1955 Author Organization [facility] Address [address] [place] [address] Care Team Providers Name Role Phone Unavailable Primary Care Provider Unavailable Encounter Details Date Type Department Care Team Description 2015 Hospital Encounter HX [facility] Singh Szymanski, P.A.-CAugusto [address] [place], [place] [address] Social History Tobacco Use [...] 1 tablet by 0 05/18/2012 mouth daily. wcvhpyihmiqj-En-omgf-minerals Take 2 tablets by 0 05/20/2011 tablet mouth 2 (two) times a day. omeprazole (PriLOSEC) [address] Take by mouth. 0 0 05/18/2012 capsule documented as of this encounter Progress Notes Maria Antonia Kidd, O.P.A.-C. - 2015 2:27 PM CST [id number] CHIEF COMPLAINT/REASON FOR VISIT Followup of right intra-articular fracture involving the distal right radial metaphysis and probablesubacute avulsion fracture along the dorsal aspect of the STT joint. HISTORY OF PRESENT ILLNESS Ms. Hedrick presents to clinic today for followup of a right upper extremity fracture that was initially injured on 02/13/2015. Patient was seen in the emergency department, splinted, followed up withthe Department of Orthopedics on 02/16/2015 where after examination there was a high index of suspicion of further injury so a CT scan was requested. CT scan dated 02/23/2015 showed increasing obliquely oriented slightly comminuted intra-articular fracture involving the distal right radial metaphysis,approximately 2 mm articular step- off, and a probable subacute avulsion fracture along the dorsal aspect of the STT joint. Dr. Tavares reviewed the x-rays and recommended we cast her for no less than6 weeks. Cast was applied. Patient is making a sequential visit today for x-ray and progress of healing. She denies any further injury or trauma to the right upper extremity. Patient is right-hand dominant. Patient states that the cast is somewhat irritating to her and is asking if she could have the cast changed which I agreed to. We did remove the old cast without any complications or problems. MEDICATIONS As per electronic medical record without changes dated 2015. ALLERGIES Per electronic medical record without changes dated 2014. VITAL SIGNS Please see electronic medical record under nursing notes dated 2015. PHYSICAL EXAMINATION GENERAL: Ms. Hedrick is a 60-year-old female, in no acute distress. Ambulatory, weightbearing without limp. Oriented x3. EXTREMITIES: Right upper extremity cast was removed. There was no edema, erythema, ecchymosis or deformity. There was tenderness to palpation over the fracture site with minimal palpation. Did not elicit range of motion activities to the wrist secondary to the nature of the fractures. There was full active range of motion of all joints distally. Neurovascular intact to include all digits. DIAGNOSTICS X-rays taken today showed a very well-resolving distal radius fracture with minimal displacement. IMPRESSION/REPORT/PLAN Resolving right distal radius fracture. PLAN: We did reapply a short-arm cast which was well-fitted and well-formed and patient will follow up in 2 weeks. If any further injury or trauma please contact clinic immediately. Patient was very satisfied with clinical visit. All questions were answered. Maria Antonia Kidd P.A.-C./aos Electronically Signed By: MARIA ANTONIA KIDD On: 04/02/2015 08:56 AM Source: [facility] MHSDOLBEYNONRADSYS Document Id: [id number] A PRODUCTION SUPPORT MANAGER documented in this encounter Miscellaneous Notes Miscellaneous - Maria Antonia Kidd O.P.A.-C. - 2015 3:13 PM MEDIA PRODUCTION SUPPORT MANAGER Ambulatory Patient Summary [facility] [address] [place], [place] [phone] Visit Information Name: ARA HEDRICK [facility] Number: [id number] Current Date: 2015 15:13:15 Physicians Attending Provider: MARIA ANTONIA KIDD Primary [...] the Following Medications: Medication list as of 03-27-15 15:13 Attention: If you have any medications at [...] Electronically Signed By: MARIA ANTONIA KIDD Signed On:27-MAR-2015 15:13:00 Your Allergies & Intolerances Substance Reaction Symptoms Category Comments beta blockers Drug Topamax Drug Lyrica Drug HYDROcodone Drug oxyCODONE Drug Your Problem List Problem Status Onset Comments Major depressive disorder, recurrent, unspecified Active Your Upcoming Appointments Date Time Location Provider 04/10/2015 14:45 [facility] Ortho Maria Antonia Kidd PA-C Attention: Contact your local Clinic if further [...] online form. Youll be asked for your [facility] number which you can find at the top of this document. Your Goals/Additional instructions: Source: [facility] POWERCHART Document Id: [id number] A PRODUCTION SUPPORT MANAGER Miscellaneous - Maria Antonia Kidd O.P.A.-C. - 2015 3:13 PM MEDIA PRODUCTION SUPPORT MANAGER Ambulatory Discharge Medication List [address] [id number] Visit Information Name: ARA HEDRICK [facility] Number: [id number] Visit Date: 2015 15:13:14 Attending Provider: MARIA ANTONIA KIDD Primary Care [...] the Following Medications: Medication list as of 03-27-15 15:13 Attention: If you have any medications at [...] Signed By: MARIA ANTONIA KIDD PA Signed On:27-MAR-2015 15:13:00 Additional Information: Source: [facility] POWERCHART Document Id: [id number] A PRODUCTION SUPPORT MANAGER Miscellaneous - Melvi De L.PAugustoNAugusto - 2015 2:37 PM CST Adult Hospice Registered Nurse Intake/History Adult Hospice Registered Nurse Intake/History Entered On: 2015 14:47 MEDIA PRODUCTION SUPPORT MANAGER Performed On: 2015 14:37 MEDIA PRODUCTION SUPPORT MANAGER by MELVI DE LPN Intake Chief Complaint : Recheck right distal radius fx. Here for cast check. Has areas of irritation from padding which has deteriated since last appointment. Onset of Symptoms : 01/30/15 MELVI DE LPN - 2015 14:37 MEDIA PRODUCTION SUPPORT MANAGER General Info Information Given By : Patient Languages : Yi Is Patient Female and 13-50 no hysterectomy : No MELVI DE LPN - 2015 14:37 MEDIA PRODUCTION SUPPORT MANAGER Subjective Pain Symptoms : No MELVI DE LPN - 2015 14:37 MEDIA PRODUCTION SUPPORT MANAGER Dependent Habits Exposure to Tobacco Smoke : Other: former Smoking Status : Former smoker Tobacco 2A : Yes Tobacco Use/Currently Using : No Tobacco Use/Last 30 Days : No Tobacco Use/Last 12 months : No Tobacco Last Use/Month : March Tobacco Last Use/Year : 1992 MELVI DE BUTT MAKER - 2015 14:37 MEDIA PRODUCTION SUPPORT MANAGER Caffeine Use Grid Caffeine Use : Current Type : Coffee Frequency : Daily MELVI DE Stacie BUTT MAKER - 2015 14:37 MEDIA PRODUCTION SUPPORT MANAGER Source: [facility] POWERCHART Document Id: [id number] MEDIA PRODUCTION SUPPORT MANAGER!24 A PRODUCTION SUPPORT MANAGER documented in this encounter Plan of Treatment Not on filedocumented as of this encounter Procedures Procedure Name Priority Date/Time Associated Diagnosis Comme nts DX WRIST RIGHT 3+ Routine 2015 2:51 PM Resu lts for this VIEWS MEDIA PRODUCTION SUPPORT MANAGER procedure are i n the results section. documented in this encounter Results DX Wrist Right 3+ Views (2015 2:51 PM MEDIA PRODUCTION SUPPORT MANAGER) Anatomical Region Laterality Modality Upper Extremity, Wrist Right Radiographic Imag ing Specimen (Source) Anatomical Collection Method Collection Time Re ceived Time Location / / Volume Laterality 2015 2:51 PM MEDIA PRODUCTION SUPPORT MANAGER Addenda Addendum by Provider, Samra Booker o soumya 2015 2:51 PM MEDIA PRODUCTION SUPPORT MANAGER RAD^^^OW XR Wrist Right 3 or more views 2015 14:51:50 Impressions 2015 3:37 PM MEDIA PRODUCTION SUPPORT MANAGER Skeletally mature individual. Good bone quality. Has a distal radius fracture that's a radial s tyloid fracture. It is an intra-articular fracture with about a 2 mm step-off. Fracture does have some good callus formation. Also antonio s a small ulnar styloid fracture with some displacement. Althoug h some of the radial styloid fragments look to be old. CMC joint of t he thumb does have some arthritic change. Narrative 2015 3:37 PM MEDIA PRODUCTION SUPPORT MANAGER EXAM: XR Wrist Right 3 or more views INDICATION: right distal radius fracture COMPARISON: None. Procedure Note Gregg Zuniga M.D. / Provider, Birgit cazares M.D. - 07/25/2016 EXAM: XR Wrist Right 3 or more views INDICATION: right distal radius fracture COMPARISON: None. IMPRESSION: Skeletally mature individual . Good bone quality. Has a distal radius fracture that's a radial s tyloid fracture. It is an intra-articular fracture with about a 2 mm step-off. Fracture does have some good callus formation. Also antonio s a small ulnar styloid fracture with some displacement. Althoug h some of the radial styloid fragments look to be old. CMC joint of t he thumb does have some arthritic change. [place] Early(Monique) [facility] DI[facility]NOSTIC IMAGING PROC EDURES documented in this encounter Visit Diagnoses Not on filedocumented in this encounter Additional Health Concerns Assessment Noted Time PHQ-9 Depression Total Score: 20 02/13/2015 2:45 PM CS T documented as of this encounter
--- OUTSIDE RECORDS SUMMARY | 2021-12-19 20:30 | XMS_ITS | Encounter Summary ---
:1955 Author Organization [facility] Address [address] [place] [address] Care Team Providers Name Role Phone Unavailable Primary Care Provider Unavailable Encounter Details Date Type Department Care Team Description 02/13/2015 Hospital Encounter HX [facility] Alysha Fay i, M.D. [address] [place] [address] (Wo rk) Social History Tobacco Use Types Packs/Day Years Used Date Smoking Tobacco: Never Assessed Sex Assigned at Date Recorded Not on file documented as of this encounter Last Filed Vital Signs Vital Sign Reading Time Taken Comments Blood Pressure 112/78 02/13/2015 2:41 PM [employer] Pulse 76 02/13/2015 2:41 PM [employer] Temperature - - Respiratory Rate 16 02/13/2015 2:41 PM [employer] Oxygen Saturation - - Inhaled Oxygen Concentration [...] 1 tablet by 0 05/18/2012 mouth daily. dpvwkxwullpi-Hh-mxjf-minerals Take 2 tablets by 0 05/20/2011 tablet mouth 2 (two) times a day. omeprazole (PriLOSEC) [address] Take by mouth. 0 0 05/18/2012 capsule documented as of this encounter H&P Notes Alysha Hopper M.D. - 02/13/2015 1:58 PM CST [id number] CHIEF COMPLAINT/ REASON FOR VISIT Review medications, review medical concerns, update preventive services. MEDICATIONS Post-visit Medication Reconciliation 1. Lorazepam, PO. 2. Trazodone, PO. 3. Omeprazole, PO, daily. 4. Effexor, PO. 5. Losartan, PO, daily. 6. Meloxicam, PO, daily. 7. Hydrochlorothiazide, PO, daily. 8. BuSpar, PO, t.i.d. ALLERGIES Beta blockers. Hydrocodone. Lyrica. Oxycodone. SYSTEMS REVIEW Ara is a 59 year old female who presents to the clinic today to establish care. She has had a sore behind her right ear for the last year. Ara fell a week ago and twisted her right wrist which is painful. She has difficulty gripping with her right hand. She states that she has had difficulty with steroid injections in the past. These caused her to havesevere diarrhea. Ara is not taking Mirtazapine. She is unsure of the doses of the medications that she currently takes. The patient has no other questions or concerns at this time. PAST MEDICAL/SURGICAL HISTORY 1. Hysterectomy secondary to abnormal pap smears. 2. Cholecystectomy. 3. Brain surgery to remove benign meningioma in 2006. 4. Radiofrequency denervation in the L4-L5 facet joints. 5. Hypertension. 6. Insomnia. 7. GERD. 8. Depression. 9. Anxiety. 10. Agoraphobia. PREVENTIVE SERVICES Tobacco use: none, former smoker. Influenza: 02/13/2015. SOCIAL HISTORY She is currently receiving social security for agoraphobia, PTSD and chronic pain. She has two daughters and a son and grandchildren. FAMILY HISTORY Mother had hypertension, Pagets disease, polymyalgia rheumatic and when she was 89. Father of esophageal cancer that metastasized when he was 62. Brother (Pedrito) is developmentally disabled, has diabetes. Sister (Mercedes) has multiple sclerosis, TMJ and Menieres disease. Half-brother of cancer and heart disease when he was 62. Half-sister has epilepsy and had a stroke. VITAL SIGNS TEMP: 36.7 Deg C. PULSE: 76 /min. RESP: 16 /min. SYSTOLIC: 112 mmHg. DIASTOLIC: 78 mmHg. PHYSICAL EXAMINATION GENERAL: Patient is alert and oriented times three, in no acute distress, good hygiene and is dressed appropriately. NECK: Is without adenopathy. LYMPH NODES: Not palpably enlarged and no nodules are palpated. HEART: Regular rate and rhythm without murmur. LUNGS: Clear to auscultation. EXTREMITIES: Tenderness over the right distal radius. SKIN: On the right scalp in the temporal area above the ear is a raised and crusty skin lesion approximately on centimeter in diameter. MENTAL STATUS: PHQ9 score of 20. SREE 7 score of 12. DIAGNOSTICS: Right wrist x-ray results: reviewed. IMPRESSION/REPORT/PLAN 1. Healthcare maintenance. She will request records from her previous provider. I will request an updated medication list from her pharmacy which is [facility] in [place]. Influenza vaccine was administered today. 2. Right distal radius fracture. Right wrist x-ray was obtained and indicated a right distal radius fracture. Provided patient with a thumb spica splint; will refer to orthopedics for further evaluation and management. 3. Psychiatric concerns. She follows with Dr. Ochoa at [facility]. 4. Skin lesion. She will need a biopsy to rule out malignancy. 5. Follow up. The patient will contact the clinic with any new or worsening symptoms. This document serves as a record of services personally performed by Alysha Galvan MD. It was created on their behalf by Sadie Dee, a trained medical illustrator. The creation of this record is based on the scribe's personal observations and the provider's statements to them. This document has been leslie cked and approved by the attending provider. Alysha Conrad M.D./taryn Electronically Signed By: ALYSHA HOPPER MD On: 02/13/2015 06:27 PM Source: [facility] [id number] Document Id: [id number] [employer] documented in this encounter Nursing Notes Amanda Anderson L.P.N. - 02/13/2015 4:35 PM CST the patient has been informed of other medical supply locations within the area. the patient has been fitted with a thumb spica 8 inch mid right hand splint. instructions were given on the proper careand usage of the product with the patient understanding via verbalizing of instructions. [facility] return and warrantly policy was given and reviewed. Electronically Signed By: AMANDA ANDERSON LPN On: 02/13/2015 04:39 PM Source: [facility] POWERCHART Document Id: [id number] [employer] documented in this encounter Miscellaneous Notes Miscellaneous - Alysha Hopper M.D. - 02/13/2015 11:38 PM [employer] Ambulatory Patient Summary [address] [id number] Visit Information Name: ARA HEDRICK [facility] Number: [id number] Current Date: 02/13/2015 23:38:08 Physicians Attending Provider: ALYSHA HOPPER MD Primary Care Provider: ALYSHA HOPPER MD ARA [...] the Following Medications: Medication list as of 02-13-15 23:38 Attention: If you have any medications at home that are not on this list, DO NOT take them until youcontact your provider for clarification. Give a copy of your medication list to your primary care provider. Update your medication list any time medications or doses are changed and carry your medication list at all times in case of emergency. Electronically Signed By: ALYSHA HOPPER MD Signed On:13-FEB-2015 23:38:01 Your Allergies & Intolerances Substance Reaction Symptoms Category Comments beta blockers Drug Lyrica Drug HYDROcodone Drug oxyCODONE Drug Your Problem List Problem Status Onset Comments Major depressive disorder, recurrent, unspecified Active Your Upcoming Appointments Date Time Location Provider 03/06/2015 14:00 [facility] Alysha Galvan MD Attention: Contact your local [...] you dont have one. [facility] to [email or web address] and click on Create Your Account. Then, follow the directions to complete the online form. Youll be asked for your [facility] number which you can find at the top of this document. Your Goals/Additional instructions: Source: [facility] POWERCHART Document Id: [id number] [employer] Miscellaneous - Alysha Hopper M.D. - 02/13/2015 11:38 PM [employer] Ambulatory Discharge Medication List [address] [place], [place] [id number] Visit Information Name: ARA HEDRICK [facility] Number: [id number] Visit Date: 02/13/2015 23:38:07 Attending Provider: ALYSHA HOPPER MD Primary Care Provider: ALYSHA HOPPER MD ARA [...] the Following Medications: Medication list as of 02-13-15 23:38 Attention: If you have any medications at home that are not on this list, DO NOT take them until youcontact your provider for clarification. Give a copy of your medication list to your primary care provider. Update your medication list any time medications or doses are changed and carry your medication list at all times in case of emergency. Electronically Signed By: ALYSHA HOPPER MD Signed On:13-FEB-2015 23:38:01 Additional Information: Source: [facility] POWERCHART Document Id: [id number] [employer] Telephone Encounter - Conversion, Historical Provider Ser - 02/13/2015 4:10 PM CST *Phone Message Document Contains Addenda Addendum by MARIA ANTONIA PURVIS on 14 February 2015 10:35:55 [employer] From: MARIA ANTONIA PURVIS To: [facility] Orthopedic Nurse; Sent: 02/14/2015 10:35:55 [employer] Subject: RE: *Phone Message OK Koko Addendum by MELVI BARDALES LPN on 14 February 2015 09:20:26 [employer] From: MELVI BARDALES LPN ( Orthopedic Nurse) To: MARIA ANTONIA PURVIS; Sent: 02/14/2015 09:20:26 [employer] Subject: FW: *Phone Message Patient notified of message below and verbalizes understanding of plan of care. Call transferred to scheduling desk. Appointment given with LARRY Lockwood on 02/16/15 Addendum by EMMANUEL MONTANO MD on 14 February 2015 08:52:33 [employer] From: EMMANUEL MONTANO MD To: Orthopedic Nurse; Sent: 02/14/2015 08:52:33 [employer] Subject: RE: *Phone Message should see one of the PAs for further work-up. Potential CT depending on exam. Addendum by ELLIE PAGE LPN on 13 February 2015 16:12:35 [employer] From: ELLIE PAGE LPN ( Orthopedic Nurse) To: EMMANUEL MONTANO MD; Sent: 02/13/2015 16:12:35 [employer] Subject: FW: *Phone Message Please review and advise for treatment. From: TYLER OROZCO ([address] News Intern) To: Orthopedic Nurse; Sent: 02/13/2015 16:10:33 [employer] Subject: *Phone Message Caller is: ( ) Patient ( ) Mother ( ) Father ( ) Spouse ( ) Daughter ( ) Son ( ) Pharmacy ( ) Other: Physician: Patient MRN #: Reason for Call: Message: s:Alysha Benitez's office calling to schedule pt. with Ortho b: R side distal radius fx- xrays done today on 02/13/15 a: Callback r: Patient is Ara at [phone] Advice/Action: Source used: ( ) Verbalizes understanding [...] back cell phone number ( ) Source: [facility] [employer] Document Id: [id number] Miscellaneous - Amanda Anderson L.P.N. - 02/13/2015 2:48 PM CST Health Assessment Health Assessment Entered On: 02/13/2015 14:50 [employer] Performed On: 02/13/2015 14:48 [employer] by AMANDA ANDERSON LPN Health Assessment Complete Health Assessment Complete or Modified : Annual Health Assessment Annual Health Assessment Completed : Yes AMANDA ANDERSON LPN - 02/13/2015 14:48 [employer] Nutrition Nutrition Risk Factors by History Adult : None AMANDA ANDERSON LPN - 02/13/2015 14:48 [employer] Functional Living Situation : Home independently Current Daily Living Assistance : Housekeeping AMANDA ANDERSON LPN - 02/13/2015 14:48 [employer] Dependent Habits Tobacco Use/Currently Using : No Tobacco Use/Last 12 months : No Exposure to Tobacco Smoke : Other: former Smoking Status : Former smoker Alcohol Use : No AMANDA ANDERSON LPN - 02/13/2015 14:48 [employer] Caffeine Use Grid Caffeine Use : Current Type : Coffee Frequency : Daily AMANDA ANDERSON LPN - 02/13/2015 14:48 [employer] Psychosocial Domestic Abuse Concerns : None Behavioral Health Screen/Safety Assmt : No Roman Catholic Preference : No qualifying data available. AMANDA ANDERSON LPN - 02/13/2015 14:48 [employer] Advance Directive Advanced Directives : No Advance Directive Additional Information : Yes Advance Directive Comments : packet given to patient at appt AMANDA ANDERSON LPN - 02/13/2015 14:48 [employer] Educ Needs Learning Style Preference Adult Grid Patient : Demonstration, Printed materials, Verbal explanation Family : None AMANDA ANDERSON LPN - 02/13/2015 14:48 [employer] Source: [employer] Document Id: [id number] [employer]KER!32 [employer] Miscellaneous - Amanda Anderson, L.P.N. - 02/13/2015 2:47 PM CST SREE-7 SREE-7 Entered On: 02/13/2015 14:48 [employer] Performed On: 02/13/2015 14:47 [employer] by AMANDA ANDERSON LPN GAD7 GAD7 Feeling nervous : Nearly every day GAD7 Not able to control worry : Nearly every day GAD7 Worrying too much : Nearly every day GAD7 Trouble relaxing : Not at all GAD7 Being so restless : Not at all GAD7 Becoming easily annoyed : Not at all GAD7 Feeling afraid : Nearly every day GAD7 Total Score : 12 Problems make work, home, or dealing with others : Extremely difficult AMANDA ANDERSON LPN - 02/13/2015 14:47 [employer] Source: [employer] Document Id: [id number] [employer]ER!11 [employer] Miscellaneous - Amanda Anderson, L.P.N. - 02/13/2015 2:45 PM CST PHQ-9 PHQ-9 Entered On: 02/13/2015 14:47 [employer] Performed On: 02/13/2015 14:45 [employer] by AMANDA ANDERSON LPN PHQ-9 Little interest or pleasure in doing things : Nearly every day Feeling down, depressed, or hopeless : Nearly every day Trouble falling or staying asleep, or sleeping too much : Nearly every day Feeling tired or having little energy : Nearly every day Poor appetite or overeating : Nearly every day Feeling bad about yourself or that you are a failure : More than half the days Trouble concentrating on things : Nearly every day Moving or speaking slowly; restless or fidgety : Not at all Thoughts that you would be better off /hurting self : Not at all PHQ-9 Calculated Score : 20 Problems make work, home, or dealing with others : Extremely difficult AMANDA ANDERSON LPN - 02/13/2015 14:45 [employer] [facility] Document Id: [id number] [employer]!13 [employer] Miscellaneous - Amanda Anderson L.P.N. 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 declined to allow weight and height to be completed Temperature Core : 36.7 DegC(Converted to: 98.1 DegF) Peripheral Pulse Rate : 76 /min Respiratory Rate : 16 /min Systolic Blood Pressure : 112 mmHg Diastolic Blood Pressure : 78 mmHg NIBP Mean : 89 mmHg BP Location : Left upper extremity Blood Pressure Cuff Size : Regular AMANDA ANDERSON [facility] - 02/13/2015 14:41 [employer] General Info Information Given By : Patient Preferred Communication Mode : Verbal Languages : Belgian Is Patient Female and 13-50 no hysterectomy : No AMANDA ANDERSON LPN - 02/13/2015 14:41 [employer] Subjective Pain Symptoms : Yes AMANDA ANDERSON LPN - 02/13/2015 14:41 [employer] Pain Scale Pain Scale Verbal 0-10 : Open AMANDA ANDERSON LPN - 02/13/2015 14:41 [employer] Pain Pain Assessment Grid Pain 1 Pain 2 Pain 3 Location : Lower back Upper back Wrist Laterality : Right Right Right Intensity : 6 4 7 AMANDA ANDERSON LPN - 02/13/2015 14:41 [employer] AMANDA ANDERSON LPN - 02/13/2015 14:41 [employer] AMANDA ANDERSON HARNESS AND BAG INSPECTOR - 02/13/2015 14:41 [employer] Dependent Habits Tobacco Use/Currently Using : No Tobacco Use/Last 12 months : No Exposure to Tobacco Smoke : Other: former Smoking Status : Former smoker AMANDA ANDERSON HARNESS AND BAG INSPECTOR - 02/13/2015 14:41 [employer] Source: [facility] POWERCHART Document Id: [id number] [employer]KER!39 [employer] documented in this encounter Plan of Treatment Not on filedocumented as of this encounter Procedures Procedure Name Priority Date/Time Associated Diagnosis Comme nts DX WRIST RIGHT 3+ Routine 02/13/2015 3:25 PM Resu lts for this VIEWS [employer] procedure are i n the results section. 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 Age-indeterminate, possible, minimally i mpacted acute/subacute fracture involving the distal right radi al metaphysis, the possible fracture planes appear to extend to the articular margin of the radiocarpal joint line; in the absence o f recent trauma, may be related to subacute injury with partial healing with residual fracture deformity (alternatively in the absence of recent trauma or corresponding point tenderness could be related to fortuitous overlap of trabecular bone). Careful clinical co rrelation with current presentation/recent trauma would be help ful. If clinically indicated dedicated CT of the right wrist may be h elpful for further characterization of the right wrist inju ry. Narrative 02/13/2015 3:53 PM [employer] EXAM: ??XR Wrist Right 3 or more views AGE: ??59 years old. GENDER: ??Female. INDICATION: ??pain over distal radius an d snuffbox; no reported recent trauma. COMPARISON: ??None. FINDINGS/ Procedure Note Ever Evangelista M.D. / Provider, Irene maher M.D. - 07/31/2016 EXAM: XR Wrist Right 3 or more views AGE: [age] years old. GENDER: Female. INDICATION: pain over distal radius and snuffbox; no reported recent trauma. COMPARISON: None. 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 Age-indeterminate, possible, minimally i mpacted acute/subacute fracture involving the distal right radi al metaphysis, the possible fracture planes appear to extend to the articular margin of the radiocarpal joint line; in the absence o f recent trauma, may be related to subacute injury with partial healing with residual fracture deformity (alternatively in the absence of recent trauma or corresponding point tenderness could be related to fortuitous overlap of trabecular bone). Careful clinical co rrelation with current presentation/recent trauma would be help ful. If clinically indicated dedicated CT of the right wrist may be h elpful for further characterization of the right wrist inju ry. Sharmila Lazar(R), RAugustoTAugusto(R)(M) IMG DIAGNOSTIC IMAG ING PROCEDURES documented in this encounter Visit Diagnoses Not on filedocumented in this encounter Additional Health Concerns Assessment Noted Time PHQ-9 Depression Total Score: 20 02/13/2015 2:45 PM CS T documented as of this encounter
--- OUTSIDE RECORDS SUMMARY | 2021-12-19 20:30 | XMS_ITS | Encounter Summary ---
:1955 Author Organization [facility] Address [address] [place] [address] Care Team Providers Name Role Phone Unavailable Primary Care Provider Unavailable Encounter Details Date Type Department Care Team Description 12/20/2014 Hospital Encounter [facility]X [facility] Kaiden Guerrero M.D. [address] [place] [address], [address] [place], [place] [phone] (Wo rk) Social History Tobacco Use Types Packs/Day Years Used Date Smoking Tobacco: Never Assessed Sex Assigned at Date Recorded Not on file documented as of this encounter Last Filed Vital Signs Vital Sign Reading Time Taken Comments Blood Pressure 120/70 12/20/2014 2:54 PM CDT Pulse - - Temperature - [...] 1 tablet by 0 05/18/2012 mouth daily. nvxxstuwwmbv-El-yhio-minerals Take 2 tablets by 0 05/20/2011 tablet mouth 2 (two) times a day. omeprazole (PriLOSEC) [address] Take by mouth. 0 0 05/18/2012 capsule documented as of this encounter Progress Notes Yasmany Guerrero M.D. - 12/20/2014 2:47 PM CDT [id number] CHIEF COMPLAINT/REASON FOR VISIT Follow up low back and right greater than left lower extremity pain. HISTORY OF PRESENT ILLNESS Ms. Cartagena returns today in followup. She had an MRI performed of her lumbar spine on November 30, 2014. I reviewed the images with her in detail. Significant findings include grade 1 degenerative anterolisthesis of L4 on L5 with resultant severe central canal and bilateral lateral recess stenosis with severe right foraminal narrowing. There is moderate to severe bilateral L5-S1 foraminal narrowing with compression of the exiting bilateral L5 nerve roots. Ms. Cartagena's symptoms have not changed since I saw her just previous to the MRI. She reports that 90% of the pain is in her gluteal region and bilateral lower extremities and 10% is in her low back and, again, the pain in her gluteal region and low back is primarily present when she is standing or walking. PHYSICAL EXAMINATION None performed today. IMPRESSION/REPORT/PLAN 1. Low back pain and right greater than left lower extremity pain and paresthesias. 2. MRI evidence for severe central canal stenosis at L4-L5. 3. Lumbar spondylosis. Ms. Cartagena's symptoms, examination, and imaging all would correlate with lumbar spinal stenosis asbeing the cause of her bilateral lower extremity pain. PLAN: Ms. Cartagena has been involved in a comprehensive program to this point including being involved in multiple sessions of physical therapy as well as using a TENS unit and has had multiple epidural corticosteroid injections. I feel that based on her current symptoms that are very limiting for herand the findings on her MRI, I am going to refer her to spine surgery for their opinion with respectto whether or not she would be an operative candidate at this point. Ms. Cartagena also would like toproceed with this. We will make that referral for her. Ms. Cartagena did have a concern about when she uses a medication such as hydrocodone or oxycodone she becomes very depressed and I encouraged her to talk about this with the surgeon when she meets with him or her and if it is decided to move forward with operative intervention then a comprehensive plan can be developed prior to surgery. Ms. Cartagena voiced agreement and understanding of this plan. Yasmany Guerrero M.D./baudilio cc: Lesli Schmidt [phone] [place] [address] Electronically Signed By: YASMANY GUERRERO MD On: 12/25/2014 10:43 AM Modified by and Electronically Signed by: YASMANY GUERRERO MD On: 12/25/2014 10:43 AM Source: [facility] MHSDOLBEYNONRADSYS Document Id: [id number] documented in this encounter Miscellaneous Notes Telephone Encounter - Conversion, Historical Provider Ser - 12/22/2014 2:46 PM CDT *Phone Message/Dr. Guerrero Document Contains Addenda Addendum by AMENA HOBSON LPN on 25 December 2014 13:24:57 CDT Patient notified. Addendum by CHIQUI GONZALEZ on 25 December 2014 12:07:14 CDT Returning call to [facility] please call León back at [phone] Addendum by AMENA HOBSON LPN on 25 December 2014 11:41:12 CDT left message to return call. From: MARY KAY BANEGAS ([facility] Route Driver Salesperson) To: Physical Medicine and Rehabilitation Staff; Sent: 12/22/2014 14:46:59 CDT Subject: *Phone Message/Dr. Guerrero Caller is: ( x ) Patient ( ) Mother ( ) Father ( ) Spouse ( ) Daughter ( ) Son ( ) Pharmacy ( ) Other: Physician: Dr. Guerrero Patient MRN #: Reason for Call: Message: S Patient states that she was returning a call to Dr. Guerrero's nurse regarding an appointment that she was supposed to schedule. She is aware that the nurse is not in today, but would like a call back on Thursday. B A R Please call patient back at [phone] to advise. Advice/Action: Source used: ( ) Verbalizes understanding [...] back cell phone number ( ) Source: [facility] appCREAR Document Id: [id number] Miscellaneous - Yasmany Guerrero M.D. - 12/20/2014 3:21 PM CDT Ambulatory Patient Summary [address] [id number] Visit Information Name: LEÓN CARTAGENA [facility] Number: [id number] Current Date: 12/20/2014 15:21:16 Physicians Attending Provider: YASMANY GUERRERO MD Primary Care Provider: PCP, LEÓN PEPE [...] the Following Medications: Medication list as of 12-20-14 15:21 Attention: If you have any medications at [...] Electronically Signed By: YASMANY GUERRERO MD Signed On:20-DEC-2014 15:20:31 Your Allergies & Intolerances Substance Reaction Symptoms [...] if you dont have one. Go to [email or web address] and click on Create Your Account. Then, follow the directions to complete the online form. Youll be asked for your [facility] number which you can find at the top of this document. Your Goals/Additional instructions: Source: [facility] POWERCHART Document Id: [id number] Miscellaneous - Yasmany Guerrero M.D. - 12/20/2014 3:21 PM CDT Ambulatory Discharge Medication List [address] [id number] Visit Information Name: LEÓN CARTAGENA [facility] Number: [id number] Visit Date: 12/20/2014 15:21:15 Attending Provider: YASMANY GUERRERO MD Primary Care Provider: PCP, LEÓN PEPE [...] the Following Medications: Medication list as of 12-20-14 15:21 Attention: If you have any medications at [...] Electronically Signed By: YASMANY GUERRERO MD Signed On:20-DEC-2014 15:20:31 Additional Information: Source: [facility] POWERCHART Document Id: [id number] Miscellaneous - Sadia Meza - 12/20/2014 2:54 PM CDT Adult [employer] Intake/History Adult [employer] Intake/History Entered On: 12/20/2014 14:55 CDT Performed On: 12/20/2014 14:54 CDT by SADIA MEZA LPN Intake Systolic Blood Pressure : 120 mmHg Diastolic Blood Pressure : 70 mmHg NIBP Mean : 87 mmHg BP Location : Right upper extremity Blood Pressure Cuff Size : Regular Weight Source : Other: ref SADIA MEZA LPN - 12/20/2014 14:54 CDT General Info Information Given By : Patient Preferred Communication Mode : Verbal Languages : Occitan Is Patient Female and 13-50 no hysterectomy : No SADIA MEZA LPN - 12/20/2014 14:54 CDT Subjective Pain Symptoms : No SADIA MEZA LPN - 12/20/2014 14:54 CDT Dependent Habits Tobacco Use/Currently Using : No Exposure to Tobacco Smoke : Other: former Smoking Status : Former smoker SUSANA SADIA Salvador REMELT OPERATOR - 12/20/2014 14:54 CDT Source: [facility] POWERCHART Document Id: [id number] CDT!19 Miscellaneous - Yasmany Guerrero M.D. - 12/20/2014 12:00 AM CDT [id number] December 20, 2014 [facility] [address] [place] [id number] RE: León Cartagena : 1955 To Whom It May Concern: Thank you very much for seeing Ms. Cartagena. She is a pleasant, 59-year-old female who has a longstanding history of low back pain who over the past couple of years has developed right greater than left lower extremity pain. She has been involved in a variety of different interventions including physical therapy and has had multiple epidural corticosteroid injections. Those have helped her for a short period of time but have not provided her long-lasting benefit. I recently saw Ms. Cartagena and we proceeded with an MRI of the lumbar spine on November 30, 2014, which you will have for review. Significant findings include severe central canal stenosis at L4-L5 with grade 1 anterolisthesis of L4-L5. With Ms. Cartagena's symptoms, physical examination findings, and imaging findings, I am referring her to you for your opinion with respective to potential management options. Thank you very much for seeing Ms. Cartagena. Sincerely, Yasmany Guerrero M.D. Department of Physical Medicine and Rehabilitation [facility] in [address] [address] Phone: ap Electronically Signed By: YASMANY GUERRERO MD On: 12/25/2014 11:05 AM Modified by and Electronically Signed by: YASMANY GUERRERO MD On: 12/25/2014 11:05 AM Source: [facility] MHSDOLBEYNONRADSYS Document Id: [id number] documented in this encounter Plan of Treatment Not on filedocumented as of this encounter Visit Diagnoses Not on filedocumented in this encounter
--- OUTSIDE RECORDS SUMMARY | 2021-12-19 20:30 | XMS_ITS | Encounter Summary ---
:1955 Author Organization [facility] Address [address] [place] [address] Care Team Providers Name Role Phone Unavailable Primary Care Provider Unavailable Encounter Details Date Type Department Care Team Description 01/20/2017 Orders Only [facility], Medicine in [place] M.[place] . [place] [address] [place], [place] [address] [phone] (Wo rk) Social History Tobacco Use Types [...]
--- OUTSIDE RECORDS SUMMARY | 2021-12-19 20:30 | XMS_ITS | Encounter Summary ---
:1955 Author Organization [facility] Address [address] [place] [address] Care Team Providers Name Role Phone Unavailable Primary Care Provider Unavailable Encounter Details Date Type Department Care Team Description 03/06/2015 Hospital Encounter HX [facility] FAMILY[facility]A Alysha Fay i, M.D. [address] [place] [address] (Wo rk) Social History Tobacco Use Types Packs/Day Years Used Date Smoking Tobacco: Never Assessed Sex Assigned at Date Recorded Not on file documented as of this encounter Last Filed Vital Signs Vital Sign Reading Time Taken Comments Blood Pressure 102/72 03/06/2015 2:54 PM OIL PAINTER Pulse 88 03/06/2015 2:54 PM OIL PAINTER Temperature - - Respiratory Rate 20 03/06/2015 2:54 PM OIL PAINTER Oxygen Saturation - - Inhaled Oxygen Concentration [...] 1 tablet by 0 05/18/2012 mouth daily. nxjrkdcsowrr-Sa-oqxn-minerals Take 2 tablets by 0 05/20/2011 tablet mouth 2 (two) times a day. omeprazole (PriLOSEC) [address] Take by mouth. 0 0 05/18/2012 capsule documented as of this encounter Progress Notes Alysha Lehman M.D. - 03/06/2015 1:48 PM CST [id number] CHIEF COMPLAINT/ REASON FOR VISIT Skin biopsy. HISTORY OF PRESENT ILLNESS Ara is a 59 year old female who presents to the clinic today for skin biopsy. Ara was seen on 02/13 at which time she was found to have a skin lesion on her right scalp just above her ear. She is here today to have this biopsied. The patient denies any additional questions or concerns at this time. MEDICATIONS Post-visit Medication Reconciliation Reviewed and are as outlined in the EMR dated 03/06/2015. ALLERGIES Beta blockers. Hydrocodone. Lyrica. Oxycodone. SYSTEMS REVIEW Please see HPI for pertinent positives, otherwise rest of ROS negative. PAST MEDICAL/SURGICAL HISTORY 1. Hysterectomy secondary to abnormal pap smears. 2. Cholecystectomy. 3. Brain surgery to remove benign meningioma in 2006. 4. Radiofrequency denervation in the L4-L5 facet joints. 5. Hypertension. 6. Insomnia. 7. GERD. 8. Depression. 9. Anxiety. 10. Agoraphobia. PREVENTIVE SERVICES Tobacco use: none, former smoker. VITAL SIGNS TEMP: 36.8 Deg C. PULSE: 88 /min. RESP: 20 /min. SYSTOLIC: 102 mmHg. DIASTOLIC: 72 mmHg. PHYSICAL EXAMINATION GENERAL: Patient is alert and oriented times three, in no acute distress, good hygiene and is dressed appropriately. HEART: Regular rate and rhythm without murmur. LUNGS: Clear to auscultation. SKIN: On the right scalp in the temporal area above the ear is a raised and crusty skin lesion approximately one centimeter in diameter. PROCEDURE: Risks and benefits outlined with the patient. During this procedure the universal protocol was utilized. The patient's identity was confirmed by no less than two patient identifiers, correct procedure was verified, correct site was verified and marked as applicable and a final pause was completed. After reviewing risks and benefits of a punch biopsy the area is anesthetized with 1% lidocaine withepinephrine and punch biopsy is performed. The specimen is submitted for pathological examination. The wound is dressed and wound instructions are given. IMPRESSION/REPORT/PLAN 1. Skin lesion. Punch biopsy was performed as above. Pathology is pending; patient will be notified of the results. 2. Follow up. The patient will contact the clinic with any new or worsening symptoms. This document serves as a record of services personally performed by Alysha Galvan MD. It was created on their behalf by Sadie Dee, a trained medical records library professor. The creation of this record is based on the scribe's personal observations and the provider's statements to them. This document has been leslie cked and approved by the attending provider. Alysha Conrad M.D./taryn Electronically Signed By: ALYSHA LEHMAN MD On: 03/20/2015 12:21 AM Source: [facility] MHSDOLBEYNONRADSYS Document Id: [id number] PAINTER documented in this encounter Miscellaneous Notes Miscellaneous - Alysha Lehman M.D. - 03/17/2015 5:13 PM OIL PAINTER Custom Result Letter 17 March 2015 ARA CARTAGENA [address] [facility] [id number] Dear ARA CARTAGENA, The skin lesion on your scalp was negative for cancer. Sincerely, ALYSHA CONRAD [address] [place] [address] Electronic Signature Electronically Signed By: ALYSHA LEHMAN MD On: 17 March 2015 This document has images extracted. Source: [facility] POWERCHART Document Id: [id number] Electronically signed by Dante [facility] Hospitalrom[facility] Finish Specialist [id number] at 08/18/2016 8:31 PM CDT Miscellaneous - Amanda Roberto, L.P.N. - 03/06/2015 2:54 PM CST Adult Glass Bulb Silverer Intake/History Adult Glass Bulb Silverer Intake/History Entered On: 03/06/2015 14:57 OIL PAINTER Performed On: 03/06/2015 14:54 OIL PAINTER by AMANDA ROBERTO [facility] Intake Chief Complaint : sdkin biopsy of sore on scalp right side near ear LMP Date : Hysterectomy Temperature Core : 36.8 DegC(Converted to: 98.2 DegF) Peripheral Pulse Rate : 88 /min Respiratory Rate : 20 /min Systolic Blood Pressure : 102 mmHg Diastolic Blood Pressure : 72 mmHg NIBP Mean : 82 mmHg BP Location : Left upper extremity Blood Pressure Cuff Size : Regular AMANDA ROBERTO [facility] - 03/06/2015 14:54 OIL PAINTER General Info Information Given By : Patient Preferred Communication Mode : Verbal Languages : Gambian Is Patient Female and 13-50 no hysterectomy : No AMANDA ROBERTO LPN - 03/06/2015 14:54 OIL PAINTER Subjective Pain Symptoms : Yes AMANDA ROBERTO LPN - 03/06/2015 14:54 OIL PAINTER Pain Scale Pain Scale Verbal 0-10 : Open AMANDA ROBERTO LPN - 03/06/2015 14:54 OIL PAINTER Pain Pain Assessment Grid Pain 1 Location : Lower back Laterality : Right Intensity : 5 AMANDA ROBERTO LPN - 03/06/2015 14:54 OIL PAINTER Dependent Habits Exposure to Tobacco Smoke : Other: former Smoking Status : Former smoker Tobacco 2A : Yes Tobacco Use/Currently Using : No Tobacco Use/Last 30 Days : No Tobacco Use/Last 12 months : No AMANDA ROBERTO LPN - 03/06/2015 14:54 OIL PAINTER Caffeine Use Grid Caffeine Use : Current Type : Coffee Frequency : Daily AMANDA ROBERTO LPN - 03/06/2015 14:54 OIL PAINTER Source: [facility] POWERCHART Document Id: [id number] OIL PAINTER!39 PAINTER documented in this encounter Plan of Treatment Not on filedocumented as of this encounter Procedures Procedure Name Priority Date/Time Associated Diagnosis Comme nts SURGICAL PATHOLOGY Routine 03/06/2015 2:02 PM Res ults for this OIL PAINTER procedure are i n the results section. documented in this encounter Results Pathology Surgical Pathology (03/06/2015 2:02 PM OIL PAINTER) Specimen (Source) Anatomical Collection Method Collection Time Re ceived Time Location / / Volume Laterality 03/06/2015 2:02 PM OIL PAINTER Narrative [facility] - 03/08/2015 11:34 AM OIL PAINTER [facility] in [place] [address] [facility] [address] [place] [address] Patient Name: ARA CARTAGENA Patient ID #: [id number] Collected: 03/06/2015 Address: [facility]/Zip: [address] [place] [address] ??[phone] Received: Reported: 03/07/2015 03/08/2015 Soc. Sec. #: ?/Age/Sex 1955 (Age: 59) ??F Physician(s): BRIANA CONRAD MD Copy To: ? [facility] ??[phone] [facility], ??[place] ??[address] SURGICAL PATHOLOGY REPORT FINAL DIAGNOSIS: SKIN, RIGHT SIDE OF SCALP: --- IRRITATED KERATOSIS SUGGESTING A JESSE ORRHEIC KERATOSIS AND ASSOCIATED MILD CHRONIC INFLAMMATION. dms/03/08/2015 PEDRITO CONTEH M.D. Report electronically released. Interpretation by PEDRITO CONTEH M.D. SPECIMEN(S) RECEIVED: RIGHT SIDE OF SCALP GROSS DESCRIPTION: Consists of a 2 mm skin punch. Sectioned . ESB, one cassette. ([id number]) DDG/MARGARITA/03/07/2015 MICROSCOPIC DESCRIPTION: Reviewed by Pedrito Conteh M.D.; Path ologist PAP/03/08/2015 Alysha Mcknight M.D. LAB SURG PATH ORDERABL ES Performing Organization Address City/[facility]/ZIP Code Phon e Number [facility] documented in this encounter Visit Diagnoses Not on filedocumented in this encounter Additional Health Concerns Assessment Noted Time PHQ-9 Depression Total Score: 20 02/13/2015 2:45 PM CS T documented as of this encounter
--- OUTSIDE RECORDS SUMMARY | 2021-12-19 20:30 | XMS_ITS | Encounter Summary ---
:1955 Author Organization [facility] Address [address] [place] [address] Care Team Providers Name Role Phone Unavailable Primary Care Provider Unavailable Encounter Details Date Type Department Care Team Description 02/28/2015 Hospital Encounter HX [facility] Singh Szymanski, P.A.-CAugusto [address] [place], [place] [address] Social History Tobacco Use [...] 1 tablet by 0 05/18/2012 mouth daily. armltqxmvrdr-Ak-toiw-minerals Take 2 tablets by 0 05/20/2011 tablet mouth 2 (two) times a day. omeprazole (PriLOSEC) [address] Take by mouth. 0 0 05/18/2012 capsule documented as of this encounter Progress Notes Maria Antonia Kidd, O.P.A.-C. - 02/28/2015 10:23 AM CST [id number] CHIEF COMPLAINT/REASON FOR VISIT Followup of CT scan results, right wrist. HISTORY OF PRESENT ILLNESS Ms. Hedrick presents to clinic today on a followup visit secondary to a CT result, CT dated 02/2015, indication for request of CT and having the CT done was the patient was seen in clinic on 02/16/2015 secondary to a fall on the outstretched hand. She had been previously x-rayed in the emergency department, which showed a high index of suspicion of a distal radius fracture. The evidence was substantiated while in clinic on 02/16/2015. A CT scan was requested. CT scan did show an increasing obliquely oriented slightly comminuted intra- articular fracture involving the distal right radial metaphysis approximately 4 mm x 5 mm, probable subacute avulsion fracture along the dorsal aspect of the STT joint. There also is an age-indeterminant osteocartilaginous loose body located along the adjacent articular corner of the distal scaphoid and capitate. We did go over the CT results with Dr. Tavares, who recommended that we cast for 6 weeks. This message was conveyed to the patient. Patient was very und erstanding and very satisfied that a diagnosis of why she was having persistent pain. Denies any further injury or trauma since last clinical visit. MEDICATIONS As per electronic medical record without changes, dated 02/28/2015. ALLERGIES Per electronic medical record without changes, dated 02/28/2015. VITAL SIGNS Please see electronic medical record and nursing notes, dated 02/28/2015. PHYSICAL EXAMINATION Ms. Hedrick is a 59-year-old female, in no acute distress, ambulatory, weightbearing without limp. Oriented x3. Right wrist, did present with tenderness over the distal radius and carpal bones consistent with the CT scan, did not illicit range of motion activities to the wrist secondary to nature of t he fracture. There is full active range of motion to the joints distally. Neurovascular intact to include all digits. DIAGNOSTICS X-rays And CT scans were reviewed. Please see above for results. IMPRESSION/REPORT/PLAN Right distal radius fracture. PLAN: As per Dr. Tavares's directives, we did put her in a short-arm cast for 6 weeks. Cast is well fitted and well formed. Patient will follow up in 1 week. X-rays post casting were taken, which showed no displacement. Patient was very satisfied with clinical visit. All questions were answered. Maria Antonia Kidd P.A.-C./baudilio Electronically Signed By: MARIA ANTONIA KIDD On: 03/05/2015 01:56 PM Source: [facility] MHSDOLBEYNONRADSYS Document Id: [id number] S REP documented in this encounter Miscellaneous Notes Miscellaneous - Maria Antonia Kidd O.P.A.-C. - 02/28/2015 11:30 AM SALES REP Ambulatory Patient Summary [facility] [address] [place], [place] [id number] Visit Information Name: OSIELGRACIEARA E [facility] Number: [id number] Current Date: 02/28/2015 11:30:32 Physicians Attending Provider: MARIA ANTONIA KIDD Primary [...] the Following Medications: Medication list as of 02-28-15 11:30 Attention: If you have any medications at [...] Electronically Signed By: MARIA ANTONIA KIDD Signed On:28-FEB-2015 11:30:04 Your Allergies & Intolerances Substance Reaction Symptoms Category Comments beta blockers Drug Topamax Drug Lyrica Drug HYDROcodone Drug oxyCODONE Drug Your Problem List Problem Status Onset Comments Major depressive disorder, recurrent, unspecified Active Your Upcoming Appointments Date Time Location Provider 03/05/2015 10:45 [facility]o Maria Antonia Kidd PA-C 03/06/2015 14:00 [facility] Alysha Galvan MD Attention: Contact your local [...] if you dont have one. Go to [email or web address] and click on Create Your Account. Then, follow the directions to complete the online form. Youll be asked for your [facility] number which you can find at the top of this document. Your Goals/Additional instructions: Source: [facility] POWERCHART Document Id: [id number] S REP Miscellaneous - Maria Antonia Kidd, O.PMir. - 02/28/2015 11:30 AM SALES REP Ambulatory Discharge Medication List [facility] [address] [place] [id number] Visit Information Name: ARA HEDRICK [facility] Number: [id number] Visit Date: 02/28/2015 11:30:32 Attending Provider: MARIA ANTONIA KIDD Primary Care [...] the Following Medications: Medication list as of 02-28-15 11:30 Attention: If you have any medications at [...] Signed By: MARIA ANTONIA KIDD PA Signed On:28-FEB-2015 11:30:04 Additional Information: Source: [facility] POWERCHART Document Id: [id number] S REP Miscellaneous - Tamara Fernandez, L.P.N. 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 Assistant Intake/History Entered On: 02/28/2015 10:34 SALES REP Performed On: 02/28/2015 10:33 SALES REP by TAMARA FERNANDEZ LPN Intake Chief Complaint : f/u right radius fx TAMARA FERNANDEZ LPN - 02/28/2015 10:33 SALES REP General Info Information Given By : Patient Languages : Hungarian Is Patient Female and 13-50 no hysterectomy : No TAMARA FERNANDEZ LPN - 02/28/2015 10:33 SALES REP Subjective Pain Symptoms : Yes TAMARA FERNANDEZ LPN - 02/28/2015 10:33 SALES REP Pain Scale Pain Scale Verbal 0-10 : Open TAMARA FERNANDEZ LPN - 02/28/2015 10:33 SALES REP Pain Pain Assessment Grid Pain 1 Location : Lower arm Laterality : Right Intensity : 3 TAMARA FERNANDEZ [facility] - 02/28/2015 10:33 SALES REP Dependent Habits Exposure to Tobacco Smoke : Other: former Smoking Status : Former smoker Tobacco 2A : Yes Tobacco Use/Currently Using : No Tobacco Use/Last 30 Days : No Tobacco Use/Last 12 months : No TAMARA FERNANDEZ [facility] - 02/28/2015 10:33 SALES REP Caffeine Use Grid Caffeine Use : Current Type : Coffee Frequency : Daily TAMARA FERNANDEZ Stacie [facility] - 02/28/2015 10:33 SALES REP [facility] Document Id: [id number] SALES REP!29 S REP documented in this encounter Plan of Treatment Not on filedocumented as of this encounter Procedures Procedure Name Priority Date/Time Associated Diagnosis Comme nts DX WRIST RIGHT 3+ Routine 02/28/2015 10:58 AM Res ults for this VIEWS SALES REP procedure are i n the results section. documented in this encounter Results DX Wrist Right 3+ Views (02/28/2015 10:58 AM SALES REP) Anatomical Region Laterality Modality Upper Extremity, Wrist Right Radiographic Imag ing Specimen (Source) Anatomical Collection Method Collection Time Re ceived Time Location / / Volume Laterality 02/28/2015 10:58 AM SALES REP Impressions 02/28/2015 11:47 AM SALES REP Skeletally mature individual. Good bone quality. Currently in a cast. Has a distal radius fracture that's an intra-articular fracture in remains in e xcellent alignment. Also has an old ulnar styloid fracture. 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 Narrative 02/28/2015 11:47 AM SALES REP EXAM: XR Wrist Right 3 or more views INDICATION: distal radius fracture COMPARISON: None. Procedure Note Gregg Zuniga M.D. / Provider, Birgit cazares M.D. - 07/31/2016 EXAM: XR Wrist Right 3 or more views INDICATION: distal radius fracture COMPARISON: None. IMPRESSION: Skeletally mature individual . Good bone quality. Currently in a cast. Has a distal radius fracture that's an intra-articular fracture in remains in e xcellent alignment. Also has an old ulnar styloid fracture. 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 [facility] CHEL documented in this encounter Visit Diagnoses Not on filedocumented in this encounter Additional Health Concerns Assessment Noted Time PHQ-9 Depression Total Score: 20 02/13/2015 2:45 PM CS T documented as of this encounter
--- OUTSIDE RECORDS SUMMARY | 2021-12-19 20:30 | XMS_ITS | Encounter Summary ---
:[address] [facility] Address [address] [place] [address] Care Team Providers Name Role Phone Unavailable Primary Care Provider Unavailable Reason for Visit Reason Comments Consult Urinary Incontinence Appointment Request (Routine) - Closed Specialty Diagnoses / Procedures Referred By Contact Refer red To Contact Obstetrics and Gynecology Referral ID Status Reason Start Date Expiration Date Visits Requ ested Visits Authorized [id number] Closed 06/05/2021 06/05/2022 1 1 Encounter Details Date Type Department Care Team Description 07/01/2021 Comprehensive Visit Department of [facility] [place] Urinary Obstetrics and Samra Par[facility] Stress And Urge Gynecology in [address] (Primary Dx) [facility] [id number] [place] [address] [place], [place] (Work) [phone] Social History Tobacco Use Types Packs/Day Years Used Date Smoking Tobacco: Former Sex Assigned at Date Recorded Not on file documented as of this encounter Last Filed Vital Signs Vital Sign Reading Time Taken Comments Blood Pressure 120/72 07/01/2021 1:00 PM CDT Pulse 76 07/01/2021 1:00 PM CDT Temperature - - Respiratory Rate - - Oxygen Saturation - - Inhaled Oxygen Concentration - - Weight 97.8 kg (215 lb 11.5 oz) 07/01/2021 1:00 PM CDT Height 158 cm (5' 2.21) 07/01/2021 1:00 PM CDT Body Mass Index 39.2 07/01/2021 1:00 PM CDT documented in this encounter Progress Notes Seferino Vegas M.D. - 07/01/2021 1:15 PM CDT Consult note Consult requested by Dr. Villaseñor SUBJECTIVE CHIEF COMPLAINT/REASON FOR VISIT Chief Complaint Patient presents with ??? Consult ??? Urinary Incontinence HISTORY OF PRESENT ILLNESS Ara Hedrick is a 66 y.o. P3003 who presents in consultation regarding stress urinary incontinence. She is being treated by her PCP for mixed urinary incontinence, she began pelvic floor physical therapy for this and has just completed a bladder diary. She has follow-up scheduled with pelvic PTto review her diary as well as begin bladder training. Patient states that both the stress and urge incontinence are chronic in are very bothersome to her, she wears pads all the time. She leaks urine frequently with any sort of Valsalva, however her urge symptoms are mostly at night. I did review herbladder diary, she does consume coffee 2 to 3 times a day with associated urge symptoms, however she avoids fluid intake in the evening and continues to have symptoms overnight. She is not a good candidate for medical management of her urge incontinence given hypertension and baseline mental health concerns. I have encouraged her to continue with pelvic floor physical therapy and bladder training regarding this issue. She has a history of a total hysterectomy at age 22, patient reports indication was a cervical mass,however reports that she was told by her surgeon that she did not any further Pap screening. Obstetric history notable for 3 prior vaginal deliveries, 1 did require forceps. We did discuss that pelvic floor physical therapy can also help with urge incontinence, she reports she see me today because these symptoms are very disruptive to her life and she would like to consider more definitive management. She has been previously educated about the differences between urgent stress incontinence, and that management is unique. She understands that resolving 1 type of incontinence will not fix the other type. MEDICAL HISTORY No past medical history on file. SURGICAL HISTORY Past Surgical History: Procedure Laterality Date ??? LUMBAR FUSION 2018 L3-S1 FAMILY HISTORY Family History Problem Relation Age of Onset ??? Hypertension Mother ??? Osteoporosis Mother ??? Developmental delay Brother ??? Diabetes Brother ??? Multiple sclerosis Sister ??? Meniere disease Sister ??? Seizures Sister ??? Stroke Sister ??? Ulcers Sister ??? Esophageal cancer Father SOCIAL HISTORY Social History Socioeconomic History ??? Marital status: Tobacco Use ??? Smoking status: Former Smoker ALLERGIES/CONTRAINDICATIONS Prednisone, Adhesive, Beta-blockers (beta-adrenergic blocking agts), Cyclobenzaprine, Gum ujtihc-rpmwyy-gmfo-alcohol, Hydrocodone, Hydromorphone, Milk, Mirtazapine, Morphine, Oxycodone, Pregabalin, andTopiramate CURRENT MEDICATIONS Current Outpatient Medications Medication Sig Dispense Refill ??? calcium carbonate (OS-KEMAL) 1,250 mg (500 mg calcium) tablet Take 1 tablet by mouth 2 (two) timesa day. ??? docosahexaenoic acid-epa 120-180 mg capsule Take 1,000 mg by mouth. ??? escitalopram (LEXAPRO) 20 mg tablet Take 20 mg by mouth. ??? hydroCHLOROthiazide (HYDRODIURIL) 25 mg tablet Take 1 tablet by mouth daily. ??? losartan (COZAAR) 50 mg tablet Take 1 tablet by mouth daily. ??? melatonin 3 mg tablet Take 3-6 mg by mouth. ??? acrkdngjroxf-Wm-jxgt-minerals tablet Take 2 tablets by mouth 2 (two) times a day. ??? omeprazole (PriLOSEC) [address] capsule Take by mouth. ??? tiZANidine (ZANAFLEX) 4 mg tablet Take 1 tablet by mouth every 6 (six) hours as needed. ??? aspirin 325 mg tablet Take 650 mg by mouth. ??? cholecalciferol, vitamin D3, 25 mcg (1,000 Unit) tablet Take 1,000 Units by mouth. ??? traZODone (DESYREL) 50 mg tablet TKL 1 AND 1/2 TO 2 TABLETS BY MOUTH AT BEDTIME IF NEEDED FOR SLEEP. TAKE 45 MINUTES TO 1 HR BEFPRE PLANNING ON GOING TO SLEEP No current facility-administered medications for this visit. REVIEW OF SYSTEMS A 10 point Review of Systems was negative, other than as noted in the History of Present Illness. OBJECTIVE PHYSICAL EXAMINATION Vitals: 07/01/21 1300 BP: 120/72 Pulse: 76 Weight: 97.8 kg Height: 158 cm Body mass index is 39.2 kg/m??. General: Alert, oriented, appropriately interactive, in no acute distress. Respiratory: Good effort, without distress. Abdomen: Soft, obese, nontender, nondistended. Perineum: No lesions. Normal appearing external genitalia, Bartholin glands, urethra, and Charlack's glands. Urethra: Positive cough stress test Vagina: Narrow introitus. Atrophic. No masses or lesions. No discharge. Cervix: Surgically absent Anus: Appears normal. Musculoskeletal: Normal gait. Symmetric movements of upper extremities and lower extremities. Lower Extremities: Nontender, no edema. LABS: No results found for this or any previous visit (from the past 72 hour(s)). The following portions of the patient's history were reviewed and updated as appropriate: allergies,current medications, family history, medical history, social history, surgical history and problem list. ASSESSMENT / PLAN Ara Hedrick is a 66 y.o. P3 status post remote hysterectomy, who presents with mixed urinaryincontinence, currently being managed by her PCP as well as pelvic floor physical therapy. Desires consultation for possible mid urethral sling. History as detailed above. 1. Incontinence Urinary Stress And Urge - Positive cough stress test with otherwise relatively good pelvic floor support. - Postvoid residual was 25 mL - Bacterial Culture, Aerobic + Susc, Urine - I am recommending that she continue with pelvic floor physical therapy for her mixed urinary incontinence, she should notify me if she would like to move forward with a mid urethral sling. We did discuss risks of mid urethral sling including urinary retention, pelvic and groin pain, mesh erosion, orinjury to bladder, urethra, or other structures at time of surgery. Seferino Vegas M.D. 07/01/2021 1:49 PM CDT documented in this encounter Plan of Treatment Not on filedocumented as of this encounter Procedures Procedure Name Priority Date/Time Associated Diagnosis Comme nts BACTERIAL CULTURE, Routine 07/01/2021 2:03 PM Incontinence Uri nary Results for this AEROBIC + SUSC, CDT Stress And Urge procedure are in URINE the results section. documented in this encounter Results (ABNORMAL) Bacterial Culture, Aerobic + Susc, Urine (07/01/2021 2:03 PM CDT) [facility] Time Signature Urine Culture Mixed 07/02/2021 MKTO frankie. (A) 4:07 PM CDT Specimen Anatomical Collection Method Collection Time Receive d Time (Source) Location / / Volume Laterality Urine (Urine, 07/01/2021 2:03 PM 07/02/19 7:00 Midstream) CDT PM CDT Comment: Specimen Source Site: Urine Seferino Vegas M.D. LAB MICROBIOLOGY - GENERAL O RDERABLES Performing Organization Address City/State/ZIP Code Phon e Number [facility]- [address] [place] [address] [place] [address] System in [place] [address] [place] [address] documented in this encounter Visit Diagnoses Diagnosis Incontinence Urinary Stress And Urge - P rimary documented in this encounter Additional Health Concerns Assessment Noted Time PHQ-9 Depression Total Score: 02/13/2015 2:45 PM CS T documented as of this encounter
--- OUTSIDE RECORDS SUMMARY | 2021-12-19 20:30 | XMS_ITS | Encounter Summary ---
:1955 Author Organization [facility] Address [address] [place] [address] Care Team Providers Name Role Phone Unavailable Primary Care Provider Unavailable Encounter Details Date Type Department Care Team Description 04/14/2016 Hospital Encounter HX [facility] Arabella Mauricio M.D. [address] [place], [place] [phone] (Wo rk) Social History [...] 1 tablet by 0 05/18/2012 mouth daily. hgvzanvgvnlr-Ub-reph-minerals Take 2 tablets by 0 05/20/2011 tablet mouth 2 (two) times a day. omeprazole (PriLOSEC) [address] Take by mouth. 0 0 05/18/2012 capsule documented as of this encounter Progress Notes Arabella Mauricio M.D. - 04/14/2016 9:43 AM CST [id number] HISTORY OF PRESENT ILLNESS Ara is a pleasant 61-year-old female who comes in today for evaluation of right wrist. She had an intra-articular right distal radius fracture that was treated nonoperatively a little over a year ago. She notes more recently she has developed some dorsal right wrist pain that is sharp in nature when she moves her wrist side to side. It can cause her to drop objects. She feels this in her dorsal wrist. She also notes a pain along her radial wrist which feels like a burning type pain and is usually present when she tries to grasp something. She has not had any treatment for this. She is wonderingabout cortisone injections. PHYSICAL EXAMINATION Right wrist. Her skin is benign. She has normal wrist motion. She has some tenderness over the dorsal radius scaphoid joint. She has no snuffbox tenderness. She has no CMC tenderness. She has tenderness over the first dorsal compartment. She has a positive Raquel's test. She is otherwise neurovasc ularly intact. DIAGNOSTICS X-rays taken today demonstrates some degenerative changes of her radial carpal joint as well as her CMC joint. IMPRESSION/REPORT/PLAN Ara is a 61-year-old female with right wrist arthritis as well as right deQuervain's tenosynovitis. I did discuss this with her today. I did recommend cortisone injections in both her wrist and herfirst dorsal compartment. Risks, benefits, alternatives to the injection were explained and she did agree to proceed. Her right wrist was sterilely prepped with ChloraPrep. After a final pause was performed, I used a 25-gauge needle to inject 3 mg of Celestone and 2 mL of 1% lidocaine into her dorsal wrist joint. I used a separate 25-gauge needle to inject 3 mg of Celestone and 1 mL of 1% lidocaine into her first dorsal compartment. She tolerated this well without complication. We will plan on seeing her back in clinic on an as-needed basis. Arabella Mauricio M.D./baudilio Electronically Signed By: ARABELLA MAURICIO MD On: 04/15/2016 03:33 PM Source: [facility] MHSDOLBEYNONRADSYS Document Id: [id number] ERN CHANGER documented in this encounter Miscellaneous Notes Miscellaneous - Arabella Mauricio M.D. - 04/14/2016 10:43 AM CST Ambulatory Discharge Medication List [address] [id number] Visit Information Name: ARA CARTAGENA [facility] Number: [id number] Current Date: 04/14/2016 10:43:51 Attending Provider: ARABELLA MAURICIO MD Primary Care Provider: PCP, HOMER ARA CARTAGENA has been given the following list of [...] the Following Medications: Medication list as of 04-14-16 10:43 Attention: If you have any medications at [...] Electronically Signed By: ARABELLA MAURICIO MD Signed On:14-APR-2016 10:43:48 Additional Information: Source: [facility] POWERCHART Document Id: [id number] ERN CHANGER Miscellaneous - Arabella Mauricio M.D. - 04/14/2016 10:43 AM CST Ambulatory Patient Summary [address] [id number] Visit Information Name: ARA CARTAGENA [facility] Number: [id number] Current Date: 04/14/2016 10:43:51 Physicians Attending Provider: ARABELLA MAURICIO MD Primary Care Provider: PCP, HOMER ARA CARTAGENA has been given the following list of [...] the Following Medications: Medication list as of 04-14-16 10:43 Attention: If you have any medications at [...] Electronically Signed By: ARABELLA MAURICIO MD Signed On:14-APR-2016 10:43:48 Your Allergies & Intolerances Substance Reaction Symptoms [...] if you dont have one. Go to [email or web address] and click on Create Your Account. Then, follow the directions to complete the online form. Youll be asked for your [facility] number which you can find at the top of this document. Your Goals/Additional instructions: Source: [employer] Document Id: [id number] ERN CHANGER Miscellaneous - Ashlie Cates L.P.N. - 04/14/2016 9:46 AM CST Adult Sprayer Automatic Spray Machine Intake/History Adult Sprayer Automatic Spray Machine Intake/History Entered On: 04/14/2016 9:50 PATTERN CHANGER Performed On: 04/14/2016 9:46 PATTERN CHANGER by ASHLIE CATES LPN Intake Chief Complaint : r wrist pain, HX old Fx injury, XR 04/10/15. might have some arthritis in it, she is here to see what can be done for the pain and discomfort, no vitals taken today. ASHLIE CATES LPN - 04/14/2016 9:46 PATTERN CHANGER General Info Information Given By : Patient Preferred Communication Mode : Verbal Languages : Welsh Is Patient Female and 13-50 no hysterectomy : No ASHLIE CATES LPN - 04/14/2016 9:46 PATTERN CHANGER Subjective Pain Symptoms : Yes ASHLIE CATES LPN - 04/14/2016 9:46 PATTERN CHANGER Pain Scale Pain Scale Verbal 0-10 : Open ASHLIE CATES LPN - 04/14/2016 9:46 PATTERN CHANGER Pain Pain Assessment Grid Pain 1 Location : Wrist Laterality : Right Intensity : 10 Acceptable Intensity : 7 Time Pattern : Intermittent Quality : Aching, Sharp ASHLIE CATES LPN - 04/14/2016 9:46 PATTERN CHANGER Dependent Habits Exposure to Tobacco Smoke : Other: former Smoking Status : Unknown if ever smoke Tobacco 2A : Unknown Tobacco Use/Currently Using : No Tobacco Use/Last 30 Days : No Tobacco Use/Last 12 months : No Tobacco Last Use/Month : March Tobacco Last Use/Year : 1992 ASHLIE CATES LPN - 04/14/2016 9:46 PATTERN CHANGER Caffeine Use Grid Caffeine Use : Current Type : Coffee Frequency : Daily ASHLIE CATES LPN - 04/14/2016 9:46 PATTERN CHANGER Source: [facility] POWERCHART Document Id: [id number] PATTERN CHANGER!35 ERN CHANGER documented in this encounter Plan of Treatment Not on filedocumented as of this encounter Procedures Procedure Name Priority Date/Time Associated Diagnosis Comme nts DX WRIST RIGHT 3+ Routine 04/14/2016 9:56 AM Resu lts for this VIEWS PATTERN CHANGER procedure are i n the results section. documented in this encounter Results DX Wrist Right 3+ Views (04/14/2016 9:56 AM PATTERN CHANGER) Anatomical Region Laterality Modality Upper Extremity, Wrist Right Radiographic Imag ing Specimen (Source) Anatomical Collection Method Collection Time Re ceived Time Location / / Volume Laterality 04/14/2016 9:56 AM PATTERN CHANGER Addenda Addendum by Provider, Samra Booker 04/14/2016 9:56 AM PATTERN CHANGER RAD^^^OW XR Wrist Right 3 or more views 04/14/2016 09:56:46 Impressions 04/14/2016 10:22 AM PATTERN CHANGER 1. ??See above dictation. Narrative 04/14/2016 10:22 AM PATTERN CHANGER EXAM: ??XR Wrist Right 3 or more views. DEMOGRAPHICS: ??61 years Female. INDICATION: ??eval old fracture. COMPARISON: ??April 10, 2015. FINDINGS: ??Continued healing of an obli quely oriented, intra-articular fracture involving the r ight ulnar styloid. Persistent approximately 2 mm-3 mm of ar ticular step-off. Developing intraosseous cystic change wi thin the mid, proximal scaphoid and subchondral surface of the distal right radial articular surface. Probable chronic appearing ununited frac ture fragments involving the distal left ulnar styloid with adjacent chronic appearing subcortical cystic changes in bulging the distal asp ect of the ulnar styloid. Moderately prominent degenerative change s of the right first CMC, STT, first MCP joint spaces. Widening of the right scapholunate inter brodie without appreciable proximal migration of the capitate; high ly suspicious for scapholunate ligament tearing. Multiple, chronic appearing 2 to 3 mm lo ose bodies about the peripheral margin of the right first CMC , STT joint spaces along the dorsal aspect of the right mid wrist (la teral view only). Procedure Note Steinle, Ever W, M.D. / Provider, Irene maher M.D. - 09/08/2016 EXAM: XR Wrist Right 3 or more views. DEMOGRAPHICS: 61 years Female. INDICATION: eval old fracture. COMPARISON: April 10, 2015. FINDINGS: Continued healing of an obliqu miguelangel oriented, intra-articular fracture involving the r ight ulnar styloid. Persistent approximately 2 mm-3 mm of ar ticular step-off. Developing intraosseous cystic change wi thin the mid, proximal scaphoid and subchondral surface of the distal right radial articular surface. Probable chronic appearing ununited frac ture fragments involving the distal left ulnar styloid with adjacent chronic appearing subcortical cystic changes in bulging the distal asp ect of the ulnar styloid. Moderately prominent degenerative change s of the right first CMC, STT, first MCP joint spaces. Widening of the right scapholunate inter brodie without appreciable proximal migration of the capitate; high ly suspicious for scapholunate ligament tearing. Multiple, chronic appearing 2 to 3 mm lo ose bodies about the peripheral margin of the right first CMC , STT joint spaces along the dorsal aspect of the right mid wrist (la teral view only). IMPRESSION: 1. See above dictation. Kierra Lazar(R), RAugustoTAugusto(R)(M) IMG DIAGNOSTIC IM AGING PROCEDURES documented in this encounter Visit Diagnoses Not on filedocumented in this encounter Additional Health Concerns Assessment Noted Time PHQ-9 Depression Total Score: 20 02/13/2015 2:45 PM CS T documented as of this encounter
--- OUTSIDE RECORDS SUMMARY | 2021-12-19 20:30 | XMS_ITS | Encounter Summary ---
:1955 Author Organization [facility] Address [address] [place] [address] Care Team Providers Name Role Phone Unavailable Primary Care Provider Unavailable Encounter Details Date Type Department Care Team Description 02/23/2015 Hospital Encounter HX [facility]-CT OP Kenney Kidd P.A.-C. [address] [place], [place] [address] Social History Tobacco Use [...] 1 tablet by 0 05/18/2012 mouth daily. stgtyfsacqso-Wi-sxwu-minerals Take 2 tablets by 0 05/20/2011 tablet mouth 2 (two) times a day. omeprazole (PriLOSEC) [address] Take by mouth. 0 0 05/18/2012 capsule documented as of this encounter Plan of Treatment Not on filedocumented as of this encounter Procedures Procedure Name Priority Date/Time Associated Diagnosis Comme nts CT WRIST RIGHT Routine 02/23/2015 3:00 PM Results for this WITHOUT IV CONTRAST INSTRUMENT TECHNOLOGIST procedur e are in the results section. documented in this encounter Results CT Wrist Right without IV Contrast (02/23/2015 3:00 PM INSTRUMENT TECHNOLOGIST) Anatomical Region Laterality Modality Upper Extremity, Wrist Right Computed Tomograp hy Specimen (Source) Anatomical Collection Method Collection Time Re ceived Time Location / / Volume Laterality 02/23/2015 3:00 PM INSTRUMENT TECHNOLOGIST Impressions 02/23/2015 2:35 PM INSTRUMENT TECHNOLOGIST Increasing, obliquely oriented, slightly comminuted intra-articular fracture invo lving the distal right radial metaphysis, approximately 2 mm articular step-off, series 4 image 75, series 6 image 40). Approximately 5 mm x 4 mm, probable suba cute, avulsion fracture along the dorsal aspect of the STT joint space (series 4 image 50, series 6 image 40, series 8 image 85). Probable c hronic appearing ununited fracture fragment near the tip of the di stal ulnar styloid. Approximately 2 mm of right ulna minus v ariance. Age-indeterminate, punctate ostial carti laginous loose body located along the adjacent articular corner of t he distal scaphoid and capitate (series 6 image 38). Mild soft tissue swelling along the dors al aspect of the right wrist. Probable chronic appearing, benign bone island within the proximal pole of the scaphoid. Narrative 02/23/2015 2:35 PM INSTRUMENT TECHNOLOGIST EXAM: ??CT Wrist Right w/o contrast AGE: ??59 years old. GENDER: ??Female. INDICATION: ??persistant right wrist wai n secondary to fall COMPARISON: ??Radiographs of the right w rist February 13, 2015. FINDINGS/ Procedure Note Ever Evangelista M.D. / Provider, Irene maher M.D. - 07/31/2016 EXAM: CT Wrist Right w/o contrast AGE: [age] years old. GENDER: Female. INDICATION: persistant right wrist pain secondary to fall COMPARISON: Radiographs of the right wri st February 13, 2015. FINDINGS/IMPRESSION: Increasing, oblique ly oriented, slightly comminuted intra-articular fracture invo lving the distal right radial metaphysis, approximately 2 mm articular step-off, series 4 image 75, series 6 image 40). Approximately 5 mm x 4 mm, probable suba cute, avulsion fracture along the dorsal aspect of the STT joint space (series 4 image 50, series 6 image 40, series 8 image 85). Probable c hronic appearing ununited fracture fragment near the tip of the di stal ulnar styloid. Approximately 2 mm of right ulna minus v ariance. Age-indeterminate, punctate ostial carti laginous loose body located along the adjacent articular corner of t he distal scaphoid and capitate (series 6 image 38). Mild soft tissue swelling along the dors al aspect of the right wrist. Probable chronic appearing, benign bone island within the proximal pole of the scaphoid. Pinky Lazar(R)(CT), RAugustoTAugusto(R) IMG CT PROCEDURES documented in this encounter Visit Diagnoses Not on filedocumented in this encounter Additional Health Concerns Assessment Noted Time PHQ-9 Depression Total Score: 20 02/13/2015 2:45 PM CS T documented as of this encounter
--- OUTSIDE RECORDS SUMMARY | 2021-12-19 20:30 | XMS_ITS | Clinical Summary ---
:1955 Author Organization [facility] Address [address] [place] [address] Care Team Providers Name Role Phone Unavailable Primary Care Provider Unavailable Source Comments Patient records contain information from all sites at [facility]. For routine questions regarding patient records, call [phone] during business hours, M-F 8:00 AM - 5:00 PM Central Time. Record requests for emergency care only can be directed to [phone] at any time.[facility] Allergies Active Allergy Reactions Severity Noted Date Comments Adhesive Itching, Rash 04/26/2015 Beta-Blockers Other (see comments) 10/19/2014 (Beta-Adrenergic Blocking Agts) Cyclobenzaprine Other (see comments) 12/27/2018 ? de pression Gum Rash 03/28/2019 Togied-Dxiavp-Wzjx-Alcoho l Hydrocodone Anxiety 10/24/2014 Only notices an xiety when taking ove r prolonged perio ds of time. Hydromorphone Other (see comments) 05/03/2015 Milk Other (see comments) 04/26/2015 Does ok with yogurt, cheese Mirtazapine Other (see comments) 11/10/2014 Morphine Anxiety 02/08/2018 Noticed worseni ng anxiety immedia tely after first dos e after a surgica l procedure. Had suicidal ideati ons Oxycodone Anxiety 09/19/2014 Only notices th e anxiety when on for a long period o f time. Prednisone GI intolerance High 10/28/2018 Pregabalin Other (see comments) 10/18/2014 Gave pt suicidal thoughts Topiramate Other (see comments) 02/28/2015 Severe depression Medications Medication Sig Dispensed Refills Start Date End Date Status aspirin 325 mg tablet Take 650 mg by 0 Active mouth. losartan (COZAAR) 50 mg Take 1 tablet 0 05/18/2012 Active tablet by mouth daily. hydroCHLOROthiazide Take 1 tablet 0 05/18/2012 Active (HYDRODIURIL) 25 mg tablet by mouth daily. calcium carbonate (OS-KEMAL) Take 1 tablet 0 2 Active 1,250 mg (500 mg calcium) by mouth 2 tablet (two) times a day. docosahexaenoic acid-epa Take 1,000 mg 0 05/20/2011 Active 120-180 mg capsule by mouth. omeprazole (PriLOSEC) 40 Take by mouth. 0 05/18/[address] capsule melatonin 3 mg tablet Take 3-6 mg by 0 05/08/2021 Active mouth. tiZANidine (ZANAFLEX) 4 mg Take 1 tablet 0 1 Active tablet by mouth every 6 (six) hours as needed. escitalopram (LEXAPRO) 20 Take 20 mg by 0 06/05/2021 Active mg tablet mouth. traZODone (DESYREL) 50 mg TKL 1 AND 03/24 0 06/13/2021 Active tablet TO 2 TABLETS BY MOUTH AT BEDTIME IF NEEDED FOR SLEEP. TAKE 45 MINUTES TO 1 HR BEFPRE PLANNING ON GOING TO SLEEP cholecalciferol, vitamin Take 1,000 0 Active D3, 25 mcg (1,000 Unit) Units by tablet mouth. avkpiujdegxw-Oo-gxzj-analytical data miner Take 2 tablets 0 05/20/19 12 Active als tablet by mouth 2 (two) times a day. Active Problems Problem Noted Date Depression Major Recurrent 02/13/2015 Overview: Major depressive disorder, recurrent, un specified Immunizations Name Administration Dates Next Due Influenza, Unspecified 02/13/2015 Family History Medical History Relation Name Comments Developmental delay Brother marcial half Diabetes Brother marcial half Esophageal cancer Father Hypertension Mother Osteoporosis Mother Seizures Sister 1 half Stroke Sister 1 half Ulcers Sister 1 half Meniere disease Sister 2 wil Multiple sclerosis Sister 2 wil Relation Name Status Comments Brother marcial half Father Mother Sister 1 half Sister 2 wil Social History Tobacco Use Types Packs/Day Years Used Date Smoking Tobacco: Former Sex Assigned at Date Recorded Not on file Last Filed Vital Signs Vital Sign Reading Time Taken Comments Blood Pressure 120/72 07/01/2021 1:00 PM CDT Pulse 76 07/01/2021 1:00 PM CDT Temperature - - Respiratory Rate 20 03/06/2015 2:54 PM POST ANESTHESIA ROOM NURSE Oxygen Saturation - - Inhaled Oxygen Concentration - - Weight 97.8 kg (215 lb 11.5 oz) 07/01/2021 1:00 PM CDT Height 158 cm (5' 2.21) 07/01/2021 1:00 PM CDT Body Mass Index 39.2 07/01/2021 1:00 PM CDT Plan of Treatment Health Maintenance Due Date Last Done Comments Bone Density Scan (Osteoporosis 1955 Screen) CT Colonography 1955 Cologuard 1955 Colonoscopy 1955 Colorectal Cancer Screening 1955 Depression Monitoring (PHQ-9) 1955 FIT 1955 Hepatitis C Screening 1955 Mammogram 1955 Zoster Vaccines (2 of 3) 05/25/2013 03/30/2013 Fall Risk Screen (Annual) 03/23/2021 COVID-19 Vaccine (4 - Booster for 04/25/2021 02/28/2021, , Pfizer series) 06/06/2020 Creatinine Level 09/07/2021 09/07/2020, 03/28/2020, 04/08/2019, Additional history exists Potassium Level 09/07/2021 09/07/2020, 03/28/2020, 04/08/2019, Additional history exists Sodium Level 09/07/2021 09/07/2020, 03/28/2020, 04/08/2019, Additional history exists Influenza Vaccine (#1) 2021 02/28/2021, 03/28/2020, 01/18/2019, Additional history exists Fasting Glucose for Diabetes 09/08/2023 09/07/2020, 021, Screening 04/08/2019, Additional history exists DTaP,Tdap,and Td Vaccines (3 - Td 04/08/2029 04/08/2019, , or Tdap) 10/19/1990, Additional history exists Pneumococcal vaccine (65+ years) Completed 03/28/2020, 06/2018 Insurance Payer Benefit Plan Subscriber ID Effective Phone Address Typ e / Group Dates MEDICARE MEDICARE A [id number] 2009-Pre [phone] [place] [address] [employer] [place] [id number] 2016-Pres [phone] PO MEL X Cost Share BLUE SHIELD BLUE COST ent [phone] [place] [address]
[2021-12-19 20:31] LABS: Alanine Aminotransferase* 27 U/L (4-35); Alkaline Phosphatase* 68 U/L (40-150); Aspartate Amino Transferase* 27 U/L (12-35); Bilirubin Total* 0.3 mg/dL (0.1-1.5); Blood Urea Nitrogen* 22 mg/dL (7-30); Carbon Dioxide* 25 mmol/L (20-32); Glucose* 115 mg/dL (60-115); Magnesium* 1.9 mg/dL (1.5-2.6); Total Protein* 7.4 g/dL (6.0-8.3)
--- OUTSIDE RECORDS SUMMARY | 2021-12-19 20:31 | XMS_ITS | Clinical Summary ---
:1955 Author Organization [facility] [place] [address] Care Team Providers Name Role Phone Arcelia Villaseñor MD Primary Care Provider [phone] Allergies Active Allergy Reactions Severity Noted Date Comments Adhesive Rash, Itching 04/26/2015 Adhesive Tape-Silicones Rash 03/28/2019 Beta-Blockers Muscle Weakness 10/19/2014 (Beta-Adrenergic Blocking Agts) Hydromorphone Behavioral 05/03/2015 Disturbances Cyclobenzaprine *Unknown 12/27/2018 ? depression Hydrocodone Anxiety 02/08/2018 Only notices an xiety when taking ove r prolonged perio ds of time. Pregabalin Other - Describe In 10/18/2014 Gave pt suicidal Comment Field thoughts Gum Rash 03/28/2019 Uyloqi-Zskefa-Oduc-Alcoh ol Milk GI Upset 04/26/2015 Does ok with yo gurt, cheese Mirtazapine Dizziness 11/10/2014 Morphine Anxiety 02/08/2018 Noticed worseni ng anxiety immedia tely after first dos e after a surgica l procedure. Had suicidal ideati ons Unlisted Allergen Other - Describe In 03/22/2008 Dus t, smoke, pollen (Include Detail In Comment Field Comments) Oxycodone Anxiety 09/19/2014 Only notices th e anxiety when on for a long period o f time. Prednisone GI Upset High 10/28/2018 Topiramate Other - Describe In 04/26/2015 Severe d epression Comment Field Medications Medication Sig Dispensed Refills Start End Status Date Date CPAPIndications: JIMMIE autoCPAP, 1 Device 0 07/10/19 Active (obstructive sleep heated 16 apnea) humidifier, mask, headgear, filters and tubing. Pressure: 4-10cm/H2O Length of Need: 99 fish oil-omega-3 fatty Take 1 0 Active acids (FISH OIL) capsule by 1,200-360 mg cap mouth once daily. One capsule is 1200 mg-360 mg cholecalciferol Take 1,000 0 Act judy (VITAMIN D) 1,000 unit Units by tablet mouth once daily. aspirin 325 mg tablet Take 650 mg 0 Active by mouth every 4 hours if needed for Headache or Pain. WalkerIndications: S/P Walker with front wheels for home use. 1 Dev ice 0 01/22/20 Active lumbar fusion Anticipate use for 4-6 weeks 18 lidocaine 5% (LIDODERM) Apply on dry, 30 Patch 11 03/28/19 Active 5 % patchIndications: clean, 21 Chronic pain syndrome, hairless Pain disorder skin. Apply 1 associated with patch to psychological and painful area physical factors, of skin for Spinal stenosis of up to to 12 lumbar region without hours within neurogenic 24 hour claudication, Chronic period. pain of right knee diclofenac topical Apply 2 g 50 g 0 03/28/19 A ctive (VOLTAREN) 1 % topically to 21 gelIndications: Chronic affected pain syndrome, Pain area(s) 4 disorder associated times daily. with psychological and physical factors, Spinal stenosis of lumbar region without neurogenic claudication, Chronic pain of right knee tiZANidine (ZANAFLEX) 4 TAKE 1 TABLET 90 Tablet 2 05/29/19 Active mg tabletIndications: BY MOUTH 21 Chronic midline low EVERY 6 HOURS back pain without NEEDED FOR sciatica MUSCLE SPASM alendronate (FOSAMAX) Take 1 Tablet 12 Tablet 3 07/03/19 Active 70 mg (70 mg) by 22 tabletIndications: mouth once a Osteopenia, unspecified week in the location morning. Take on empty stomach with full glass of water. Do not lie down for 1 hr. melatonin 3 mg Take 2 180 Tablet 3 07/16/19 Acti ve tabletIndications: Tablets (6 22 Sleep concern mg) by mouth once daily. omeprazole (PRILOSEC) TAKE ONE 90 Capsule 2 08/13/19 Active 40 mg Delayed-Release CAPSULE BY 22 capsuleIndications: MOUTH EVERY Gastroesophageal reflux DAY, AT 30 disease, unspecified MINUTES whether esophagitis BEFORE EATING present hydroCHLOROthiazide Take 1 Tablet 90 Tablet 3 08/17/19 Active (HCTZ) 25 mg (25 mg) by 22 tabletIndications: mouth once Essential hypertension daily. losartan (COZAAR) 50 mg Take 1 Tablet 90 Tablet 3 08/17/19 Active tabletIndications: (50 mg) by 22 Essential hypertension mouth once daily. ondansetron (ZOFRAN Place 1 30 Tablet 0 10/26/19 Active ODT) 4 mg Tablet (4 mg) 22 disintegrating on the tongue tabletIndications: every 8 hours Nausea and vomiting, if needed for unspecified vomiting Nausea/Vomiti type ng. azithromycin Take 500 mg 6 Tablet 0 10/26/19 Activ e (ZITHROMAX) 250 mg (2 tabs) by 22 tabletIndications: mouth on day Cough 1, then 250 mg (1 tab) daily for days 2-5. traZODone (DESYREL) 50 Take 1.5 to 2 180 Tablet 0 11/27/19 Active mg tabletIndications: tablets by 22 Insomnia, unspecified mouth at type bedtime if needed for sleep. Take 45 minutes to 1 hour before bedtime. ARIPiprazole (Abilify) Take 1 Tablet 90 Tablet 0 11/27/19 Active 5 mg tabletIndications: (5 mg) by 22 Major depressive mouth at disorder, recurrent bedtime. episode, moderate (HC) sertraline (ZOLOFT) 100 Take 1 Tablet 90 Tablet 0 11/27/19 Active mg tabletIndications: (100 mg) by 22 Major depressive mouth once disorder, recurrent daily. episode, moderate (HC), Generalized anxiety disorder traZODone (DESYREL) 50 Take 1.5 to 2 180 Tablet 0 10/05/19 Discontinued mg tabletIndications: tablets by 22 022 (Reorder Insomnia, unspecified mouth at (E-cancel not type bedtime if sent)) needed for sleep. Take 45 minutes to 1 hour before bedtime. ARIPiprazole (Abilify) Take 1 Tablet 30 Tablet 1 11/14/1908/22 Discontinued 2 mg tabletIndications: (2 mg) by 22 022 (*Medication Major depressive mouth once ad justment) disorder, recurrent daily. episode, moderate (HC) sertraline (ZOLOFT) 100 Take 1 Tablet 30 Tablet 1 11/14/19 Discontinued mg tabletIndications: (100 mg) by 22 022 (*Medication Major depressive mouth once ad justment) disorder, recurrent daily. episode, moderate (HC), Generalized anxiety disorder Hospital, Clinic, or Ordered Dose Route Frequency Start Date End D ate Status Other Facility Administered Medication midazolam (PF) (VERSED) 0.5 - 6 mg IV EACH TIME PRN 02/21/2019 Active injection 0.5-6 mg fentaNYL (PF) 25-400 mcg 25 - 400 mcg IV EACH TIME PRN 02/22/20 Active injection (SUBLIMAZE) Active Problems Problem Noted Date Chronic insomnia 05/31/2020 Status post insertion of spinal cord stimulator 2019 Chronic pain syndrome 04/08/2019 Lateral epicondylitis of right elbow 04/08/2019 Medial epicondylitis of right elbow 04/08/2019 Pain disorder with related psychological factors (CODE ) 01/11/2019 Encounters for unspecified administrative purpose 12/22 Pain disorder associated with psychological and physic al factors 10/01/2018 Controlled substance agreement signed 06/11/2018 Overview: Signed 06/07/18 DR Kelsi Pike Psych iatry Severe recurrent major depression without psychotic fe atures 04/16/2018 Panic disorder with agoraphobia and moderate panic att acks 02/09/2018 Hypokalemia 02/09/2018 Essential hypertension 01/18/2018 JIMMIE on CPAP 01/06/2018 Pain medication agreement 03/23/2017 Controlled substance agreement signed 09/22/2016 Overview: Signed: 12/26/14-Dr. Franc Ochoa MD /p sychiatry Nightmares 09/26/2015 07/01/2015 AHI-53 07/10/2015 Restless legs syndrome (RLS) 07/10/2015 Acquired spondylolisthesis 04/26/2015 Spinal stenosis of lumbar region without neurogenic cl audication 04/26/2015 Spondylosis of lumbosacral region 04/26/2015 Low back pain with sciatica 02/27/2015 Generalized anxiety disorder 09/21/2014 Other pain disorders related to psychological factors 09/21/2014 Pain medication agreement 10/05/2013 Overview: regular ativan, no longer taking any bola cotics Chronic back pain 09/29/2013 Overview: chronic pain medications, narcotic agree ment signed 09/29/2013 PTSD (post-traumatic stress disorder) 09/29/2013 Neoplasm of unspecified nature of brain 01/07/2007 Overview: meningioma: surgical resection 2006 Migraine, unspecified, without mention of intractable migraine without 01/07/2007 mention of status migrainosus Esophageal reflux 01/07/2007 Unspecified essential hypertension 03/06/2006 Major depressive disorder, recurrent episode, moderate 03/06/2006 Hx of colonic polyp Resolved Problems Problem Noted Date Resolved Date JIMMIE on CPAP 10/18/2014 07/10/2015 Degeneration of lumbar or lumbosacral intervertebral disc 09/29/2013 Lumbar back pain 01/12/2013 09/29/2013 Overview: Eugenio, epidural injection Headache(784.0) 01/07/2007 09/29/2013 Unspecified general medical examination 03/06/2006 09/29/2013 Overview: colonoscopy - 2005, mammo 2006 Encounters Date Type Specialty Care Team Description 12/19/2021 Travel 12/19/2021 Nurse Triage Arcelia Villaseñor Leg Pain/ problem MD Cheikh 12/19/2021 Nurse Triage Arcelia Villaseñor MD 12/04/2021 Telephone Arcelia Villaseñor Blood Pre ssure (/High MD Cheikh Blood Pressure) 11/26/2021 Telemedicine Kelsi Piek Telehealth ; Follow Up MD Arcelia 11/26/2021 E-Visit Mychart, Provider 11/26/2021 E-Visit Mychart, Provider 11/26/2021 E-Visit Mychart, Provider 11/14/2021 Travel 11/13/2021 Telemedicine Karma Moses Telehealth; Medication [facility] [place] [facility] 11/13/2021 E-Visit Mychart, Provider 11/13/2021 E-Visit Ramiro Kelly for General MD Johnnie Patricio 11/13/2021 E-Visit Mychart, Provider 11/13/2021 E-Visit Audrey, Provider 11/04/2021 Phone Office Visit Kelsi Pike Erro r-please disregard MD Arcelia (appt cancellat ion) 11/04/2021 Telephone Kelsi Pike Questions; Medication MD Arcelia Management 11/04/2021 Travel 10/25/2021 Phone Office Visit Ramiro Kelly Phone Visit; Medication MD Sheng Management (Elly chino positive for CO VID-19 on 10/13/21, having lots of mucus, diarrhea , nausea, achy) 10/21/2021 Office Visit Honey Rogers [employer] Urinar y Problem 10/21/2021 Travel 10/21/2021 Nurse Triage Arcelia Villaseñor Pain On U rination MD Cheikh 10/21/2021 Telephone Arcelia Villaseñor Concerns MD Cheikh 10/04/2021 Phone Office Visit Kelsi Pike Medi cation Management MD Arcelia (Lexapro and Cy mbalta Rx's by PCP, pt stopped late June/ y July-didn't like how made her feel./Not t aking Melatonin or Li doderm patch. ); Phone Visit () 10/04/2021 Travel from Last 3 Months Immunizations Name Administration Dates Next Due COVID-19 vaccine (MusicNow 06/27/2020, 06/06/2020 30mcg/0.3mL) PF, MDV Hepatitis B (Adult) 09/21/2009, 04/06/2009, 10/02/2008 Influenza A (H1N1), Inactivated 04/06/2009 Influenza A (H1N1), Inactivated (Age 0104/06/2009 >=3 Years) Influenza Virus, Unspecified 02/13/2015, 12/17/2011, 008 Influenza, High-dose Inactivated 01/18/2019 Influenza, IIV3 (Age >=3 years) 02/21/2013, 12/17/2011, 01/21 Influenza, IIV4 01/20/2018, 11/20/2016, 01/12/2016, 02/20/2015, 12/30/2013 Influenza, IIV4 (=>6mos) MDV 02/13/2015 Influenza, Inactivated AIIV4 (Age 65+ 02/28/2021, 03/28/2020 Years) Preserv Free Influenza, ccIIV3 (Age >=18 Years) 02/20/2013 MMR 12/01/2003 Pneumococcal Poly,23-Valent 03/28/2020 (Pneumovax) Pneumococcal conj 13-Valent (Prevnar 06/24/2018 13) Td (Age >=7 Years) 10/19/1990, 10/27/1983 Td, Preservative Free (age >= 7 10/19/1990, 10/27/1983 Years) Tdap 04/08/2019, 02/10/2008 Tuberculin (PPD) 04/09/2009, 10/04/2008, 12/01/2003 Tuberculin Skin Test, Unspecified 12/17/2011, 04/06/2009, Zoster (Zostavax-ZVL, live) 03/31/2013 Family History Medical History Relation Name Comments Diabetes Brother 3 Psychiatric illness Brother 4 MR Seizures Brother 5 Asthma Daughter 3 Alcohol/Drug Father Cancer Father esoph. Arthritis Mother Diabetes Mother Hypertension Mother Osteoporosis Mother Psychiatric illness Mother depression / anxiety Cancer-breast Paternal Grandmother Thyroid Disease Paternal Grandmother Heart Disease Paternal Uncle Multiple sclerosis Sister Relation Name Status Comments Brother 1 Alive half brothers Brother 2 half Brother 3 Brother 4 Brother 5 Daughter 1 Alive Daughter 2 Alive Daughter 3 Father Maternal Grandfather Maternal Grandmother Mother Alive Paternal Grandfather Paternal Grandmother Paternal Uncle Sister Alive and 1 half siste r Son Alive Social History Tobacco Use Types Packs/Day Years Used Date Former Smoker Cigarettes 1 25 03/23/1967 - 1 03/23/1992 Smokeless Tobacco: Never Used Tobacco Cessation: Counseling Given: Yes Comments: quit 1992 Alcohol Use Standard Drinks/Week Comments No 0 (1 standard drink = 0.6 oz pure alcoho l) Alcohol Habits Answer Date Recorded How often do you have a drink containing alcohol? Never 05/27/2018 How many drinks containing alcohol do you have on a typical Not asked day when you are drinking? How often do you have six or more drinks on one occasion? Ne madison 05/27/2018 Comment: Not asked Social Isolation Answer Date Recorded In a typical week, how many times do you Patient refused 05/27/2018 talk on the phone with family, friends, or neighbors? How often do you get together with friends Twice a week 05/27/2018 or relatives? How often do you attend scientologist or restorationism More than 4 time s per year 05/27/2018 services? Do you belong to any clubs or organizations Yes 05/27/2018 such as scientologist groups, unions, fraternal or athletic groups, or school groups? How often do you attend meetings of the More than 4 times pe r year 05/27/2018 clubs or organizations you belong to? Are you now , , , 05/27/2018 , never or living with a partner? Physical Activity Answer Date Recorded On average, how many days per week do you engage in moderate to 5 days 05/27/2018 strenuous exercise (like walking fast, running, jogging, dancing, swimming, biking, or other activities that cause a light or heavy sweat)? On average, how many minutes do you engage in exercise at th is 70 min 05/27/2018 level? Stress Answer Date Recorded Do you feel stress - tense, restless, nervous, or anxious, o r Very much 05/27/2018 unable to sleep at night because your mind is troubled all the time - these days? Financial Resource Strain Answer Date Recorded How hard is it for you to pay for the very basics like Somew hat hard 05/27/2018 food, housing, medical care, and heating? Intimate Partner Violence Answer Date Recorded Within the last year, have you been afraid of your partner o r No 05/27/2018 ex-partner? Within the last year, have you been humiliated or emotionall y No 05/27/2018 abused in other ways by your partner or ex-partner? Within the last year, have you been kicked, hit, slapped, or No 05/27/2018 otherwise physically hurt by your partner or ex-partner? Within the last year, have you been raped or forced to have any No 05/27/2018 kind of sexual activity by your partner or ex-partner? Food Insecurity Answer Date Recorded Within the past 12 months, you worried that your food would Never true 05/27/2018 run out before you got money to buy more. Within the past 12 months, the food you bought just didn't N ever true 05/27/2018 last and you didn't have money to get more. Transportation Needs Answer Date Recorded In the past 12 months, has lack of transportation kept you f rom No 05/27/2018 medical appointments or from getting medications? In the past 12 months, has lack of transportation kept you f rom No 05/27/2018 meetings, work, or getting things needed for daily living? Sex Assigned at Date Recorded Not on file COVID-19 Exposure Response Date Recorded In the last 10 days, have you been in contact with No / Unsu re 12/19/2021 5:35 PM CDT someone who was confirmed or suspected to have Coronavirus/COVID-19? Obstetrics History Para Term AB IAB SAB Ectopic Multiple Living Live Births 3 3 3 Date Outcome GA Total Labor/2nd/3rd Weight Sex Delivery Anes PTL Navya A 1 A5 Name Clin Labor Para Para Para Last Filed Vital Signs Vital Sign Reading Time Taken Comments Blood Pressure 104/67 10/21/2021 2:22 PM CDT Pulse 83 10/21/2021 2:22 PM CDT Temperature 36.7 ??C (98.1 ??F) 10/21/2021 2:22 PM CDT Respiratory Rate 16 10/21/2021 2:22 PM CDT Oxygen Saturation 97% 10/21/2021 2:22 PM CDT Inhaled Oxygen Concentration - - Weight 86.2 kg (190 lb) 11/18/2019 1:26 PM CDT Height 160 cm (5' 3) 11/18/2019 1:26 PM CDT Body Mass Index 33.66 11/18/2019 1:26 PM CDT Plan of Treatment Upcoming Encounters Date Type Specialty Care Team Description 12/25/2021 Office Visit Danielito Toussaint MD [address] [facility] [place] [address] (Wo rk) 01/07/2022 Telemedicine Lasha Pike MD [address] [phone] (Wo rk) Health Maintenance Due Date Last Done Comments Zoster (shingles) series for age 0305/26/2013 03/31/2013 50+ (2 of 3) Mammogram for age 45-75 07/09/2019 07/08/2018, 02/13/2016, 02/10/2014, Additional history exists BMI (ht and wt on same day) for 11/17/2020 11/18/2019, 08/2019, age 18+ 04/18/2015 COVID-19 vaccine series (4 - 06/29/2021 02/28/2021, 021, Booster for Pfizer series) 06/06/2020 Influenza for age 65+ 11/21/2021 02/28/2021, 03/28/2020, 01/18/2019, Additional history exists Medicare Wellness for age 65+ 05/08/2022 05/08/2021, 2020, 06/24/2018, Additional history exists Depression screening for age 12+ 11/26/2022 11/26/2021, , 11/04/2021, Additional history exists Lipids for age 45-75 03/28/2025 03/28/2020, 06/24/2018, 06/24/2017, Additional history exists Colonoscopy through age 75 04/06/2028 04/06/2018, 9 (Completed outside of [facility]) Tetanus booster 04/08/2029 04/08/2019, 02/10/2008, 10/19/1990, Additional history exists Tdap Completed 04/08/2019, 02/10/2008 Hepatitis C screening for age Completed 03/28/2020 18-79 Pneumococcal series for age 65+ Completed 03/28/2020, 06/2018 DEXA/DXA scan for age 65+ Completed 06/12/2021, 07/20/2015 Goals Goal Patient Goal Associated Recent Patient-Stated? Author Type Problems Progress BLOOD Blood Pressure No Jugasek, PRESSURE-RADHA Salvador RN NTAINS BP LESS THAN 130/80 Medical Devices Implanted Type Area Benzol Operator Device Shelf Model / Identifier Expiration Serial / Date Lot Plate Timesh 4mm 2 Hole Timesh - [id number] Neuro Right: [employer] DANEK [id number]# / Implanted: Qty: 2 on 01/13/2007 at [facility] Implants Cranium / Cmnt Bone Surg Simplex - [id number] Right: [facility] [id number]# / Implanted: Qty: 1 on 01/13/2007 at [facility] Cranium / [id number] Spacer Lmbr [id number] Capstone Tlif - [id number] Spine Med tronic [id number] / Implanted: Qty: 1 on 04/26/2015 by Ciro Acosta MD at [facility] Spine/Ortho / [id number] Wilfredo Lmbr 100x5.5mm Solera 5.5/6 Cvd Titnm - [id number] N/A: Lumbar Medtronic [id number] / Implanted: Qty: 2 on 01/18/2018 by Ciro Jasso MD a t Vertebrae Spine/Ortho / Stimulator Neuro Proclaim 5 Ipg - [id number] N/A: [facility] 03/01/2021 [id number]# / Implanted: Qty: 1 on 04/11/2019 by Gregg Zapien MD at [employer] [id number] / Vertebrae Explanted Type Area Benzol Operator Device Shelf Model / Identifier Expiration Date Ser ial / Lot Wilfredo Lmbr 40x5.5mm Solera 5.5/6cvd Titnm - [id number] Spine Medtronic [id number] / Implanted: Qty: 2 on 04/26/2015 by Ciro Acosta MD at [facility] Spine/Ortho / Explanted: Qty: 2 on 01/18/2018 at Procedures Procedure Name Priority Date/Time Associated Comments Diagnosis URINE CULTURE Add On 10/21/2021 2:10 PM Acute cystitis Result s for this CDT without hematuria procedure are in the results section. URINALYSIS STAT 10/21/2021 2:10 PM Urinary symptom or Res ults for this MICROSCOPIC CDT sign procedure are i n the results section. UA W/ SEDIMENT EXAM STAT 10/21/2021 2:10 PM Urinary symptom or Results for this REFLEXED PER CRITERIA CDT sign proced ure are in the results section. from Last 3 Months Results (ABNORMAL) URINALYSIS MICROSCOPIC (10/21/2021 2:10 PM CDT) [facility] Method Time Signature RBC 51-100 (A) 0-2, None 10/21/2021 [place] Seen /HPF 2:56 PM CDT [facility] WBC >100 (A) 0-2, 3-5, 10/21/2021 [place] None Seen 2:56 PM CDT [facility] /HPF LABORATORY BACTERIA Many (A) None 10/21/2021 [place] Seen, 2:56 PM CDT [facility] Rare, Few LABORATORY Bacteria/ HPF EPITHELIAL Moderate (A) None 10/21/2021 [facility] CELLS Seen, Few 2:56 PM [facility] Epi/HPF LABORATORY Mucus Present 10/21/2021 [place] 2:56 PM [facility] LABORATORY WHITE CELL Present (A) (none) 10/21/2021 [facility] 2:56 PM [facility] LABORATORY Specimen Anatomical Collection Method Collection Time Receive d Time (Source) Location / / Volume Laterality Urine URINE SPECIMEN / Non-Blood / 10/21/2021 2:10 PM 10/21 2:17 Unknown Unknown CDT PM CDT Honey E Furlong [employer] URINE Performing Organization Address City/State/ZIP Code Phon e Number [facility]ORY [address] [place] [address] (ABNORMAL) URINE CULTURE (10/21/2021 2:10 PM CDT) [facility] gist Method Time Signature CULTURE RESULT (A) 10/23/2021 [facility] 6:39 AM CDT LABORATORY-STAR TRAL LABORATORY CULTURE 10,000-50,000 10/23/2021 [facility] CFU/mL 6:39 AM CDT LABORATORY-STAR Escherichia TRAL coli LABORATORY Specimen Anatomical Collection Method Collection Time Receive d Time (Source) Location / / Volume Laterality Urine URINE SPECIMEN / Non-Blood / 10/21/2021 2:10 PM 10/21 2:17 Unknown Unknown CDT PM CDT Organism Antibiotic Method Susceptibility Escherichia coli TRIMETHOPRIM/SULF <=04/10: S Escherichia coli AMPICILLIN 4: S Escherichia coli CEFAZOLIN-UC <=4: S Comment: Cefazolin-UC interp retations are for therapy of uncomplicated UTIs due to E.coli, K.pneumoniae, or P.m irablis. Escherichia coli GENTAMICIN <=1: S Escherichia coli CEFTRIAXONE <=1: S Escherichia coli CEFTAZIDIME <=1: S Escherichia coli LEVOFLOXACIN <=0.12: S Escherichia coli CIPROFLOXACIN <=0.25: S Escherichia coli PIPERACILLIN/TAZO <=4: S Escherichia coli AMPICILLIN/SULBACTAM <=2: S Escherichia coli CEFEPIME <=1: S Escherichia coli TOBRAMYCIN <=1: S Escherichia coli MEROPENEM <=0.25: S Escherichia coli NITROFURANTOIN <=16: S Honey Packerneilflorence [employer]PER[employer] MICROBIOLOGY Performing Organization Address City/State/ZIP Code Phon e Number [facility] [address] [place] [address] LABORATORY-CENTRAL 2000 LABORATORY (ABNORMAL) UA W/ SEDIMENT EXAM REFLEXED PER CRITERIA (10/21/2021 2:10 PM CDT) [facility] Method Time Signature COLOR Yellow Yellow Color 10/21/2021 [place] 2:54 PM [facility] CLARITY Slightly Clear 10/21/2021 [place] Cloudy (A) Clarity 2:54 PM [facility] SPECIFIC >=1.030 (A) 1.010, 10/21/2021 [place] GRAVITY,URINE 1.015, 2:54 PM [facility] 1.020, 1.025 CENTER LABORATORY PH,URINE 6.0 6.0, 7.0, 10/21/2021 [place] 8.0, 5.5, 2:54 PM [facility] 6.5, 7.5, CENTER 8.5 LABORATORY UROBILINOGEN, Normal Normal EU/dl 10/21/2021 [facility] QUALIT[facility]IVE 2:54 PM [facility] PROTEIN, 30 (A) Negative 10/21/2021 [facility] URINE mg/dL 2:54 PM [facility] GLUCOSE, Negative Negative 10/21/2021 [place] URINE mg/dL 2:54 PM [facility] KETONES,URINE Trace (A) Negative 10/21/2021 [facility] mg/dL 2:54 PM [facility] BILIRUBIN,URI Abnormal (A) Negative 10/21/2021 [facility] NE 2:54 PM [facility] Comment: A variety of metabolites and/or medications may result in a positive bilirubin result. Clinical correlation i s recommended. OCCULT BLOOD,URINE Moderate (A) Negative 10/21/2021 2:54 PM [place] [facility] LAB[facility] NITRITE Positive (A) Negative 10/21/2021 2:54 PM JLUIS Cavanaugh [facility] LEUKOCYTE ESTERASE Small (A) Negative 10/21/2021 2:54 PM KEANU DRUMMOND [facility] Specimen Anatomical Collection Method Collection Time Receive d Time (Source) Location / / Volume Laterality Urine URINE SPECIMEN / Non-Blood / 10/21/2021 2:10 PM 10/21 2:17 Unknown Unknown CDT PM CDT Honey Rogers [employer] URINE Performing Organization Address City/State/ZIP Code Phon e Number [facility] [address] [place] [address] from Last 3 Months Insurance Payer Benefit Plan / Subscriber ID Effective Dates Phone Addre ss Type Group MEDICARE PART A MEDICARE PART A [id number] 2009-Prese ATTN: CLAIMS - HB USE ONLY HB ONLY nt [address] [place] [address] MEDICARE PART B MEDICARE PART B [id number] 2009-Prese ATTN: CLAIMS - HB USE ONLY HB ONLY nt [address] [place] [address] MEDICARE PART B MEDICARE PART B [id number] 2009-Prese ATTN: CLAIMS - HB USE ONLY HB ONLY nt [address] [place] [address] MEDICARE PART A MEDICARE PART A [id number] 2009-Prese ATTN: CLAIMS - HB USE ONLY HB ONLY nt [address] [place] [address] BLUE CROSS MR BLUE CROSS [id number] 2018-Presen [address] [address] [employer] [place], [place] MR PB ONLY [id number] BLUE CROSS BLUE CROSS [id number] 2018-[place]en [address] [address] [place], [place] HB ONLY [id number] BLUE CROSS MR MR BC [employer] [place] [id number] 2014-Presen [address] t EMILY YEPEZ [phone] Ara Hedrick Personal/Famil Self 1955 [address] (Home) [place] VASQUEZ [id number] Advance Directives Latest Code Status on File Code Status Date Activated Date Inactivated Comments Full Code 04/11/2019 10:51 AM 04/12/2019 7:25 PM Full Code 04/06/2018 12:58 PM 04/06/2018 7:40 PM Code Status Discussion: Discussed Full Code 02/10/2018 9:07 AM 02/16/2018 3:47 PM Code Status Discussion: Not Discussed Full Code 01/18/2018 2:53 PM 01/21/2018 4:52 PM Code Status Discussion: Per Existing Order Full Code 04/26/2015 11:29 AM 04/30/2015 3:04 PM Care Teams Mail Carriers Supervisor Relationship Specialty Start Date End Date Arcelia Villaseñor MD PCP - General Family Practice 06/05/[address] [place] [address] JAIMIE Liao [phone]
[2021-12-19 20:33] LABS: C Reactive Protein* 0.5 mg/dL (0.5-1.0)
[2021-12-19 20:34] LABS: D Dimer Quantitative* 0.27 ug/ml (0.00-0.50)
[2021-12-19 20:40] LABS: NT Pro B Type NatriureticPept* 82 PG/mL (0-125)
[2021-12-19 20:44] LABS: Troponin I* < 0.01 ng/mL (0.01-0.04)
[2021-12-19] MEDS: KETOROLAC 10 MG TABLET PO (20:57)
[2021-12-19 21:00] VITALS: O2SAT 96
[2021-12-19 21:01] VITALS: PULSE 100; O2SAT 96
== END 2021-12-19 21:17 | disposition home or self-care (01) ==
PROVIDERS: Emergency Provider Family Medicine
DX: R06.09 Other forms of dyspnea (principal); I44.7 Left bundle-branch block, unspecified
CPT/HCPCS: 36415; 71045; 80053; 82803; 83735; 83880; 84484; 85025; 85379; 86140; 87426; 93005; 94761; 99284; 99285; A9270

== ENCOUNTER 2022-01-02 14:17 | Emergency (ER) | payer MEDICARE, BC, SELFPAY ==
[2022-01-02 14:30] VITALS: BP 131/84; PULSE 82; RESP 16; TEMP 36.5; O2SAT 96; BMI 31.9
--- OUTSIDE RECORDS SUMMARY | 2022-01-02 15:08 | XMS_ITS | Clinical Summary ---
:1955 Author Organization [facility] Address [address] [place] [address] Care Team Providers Name Role Phone Unavailable Primary Care Provider Unavailable Source Comments Patient records contain information from all sites at [facility]. For routine questions regarding patient records, call [phone] during business hours, M-F 8:00 AM - 5:00 PM Central Time. Record requests for emergency care only can be directed to [phone] at any time.[facility] Allergies Active Allergy Reactions Severity Noted Date Comments Adhesive Itching, Rash 04/26/2015 Beta-Blockers Other (see comments) 10/19/2014 (Beta-Adrenergic Blocking Agts) Cyclobenzaprine Other (see comments) 12/27/2018 ? de pression Gum Rash 03/28/2019 Yzsoxi-Cnjczs-Otjf-Alcoho l Hydrocodone Anxiety 10/24/2014 Only notices an [...] mcg (1,000 Unit) Units by tablet mouth. 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
--- OUTSIDE RECORDS SUMMARY | 2022-01-02 15:08 | XMS_ITS | Encounter Summary ---
:1955 Author Organization [facility] Address [address] [place] [address] Care Team Providers Name Role Phone Unavailable Primary Care Provider Unavailable Encounter Details Date Type Department Care Team Description 02/16/2015 Hospital Encounter HX [facility] Singh Szymanski, P.A.-CAugusto [address], [place] [address] Social History Tobacco Use [...] 1 tablet by 0 05/18/2012 mouth daily. lgkiuycvkqls-Rg-yesz-minerals Take 2 tablets by 0 05/20/2011 tablet mouth 2 (two) times a day. omeprazole (PriLOSEC) [address] Take by mouth. 0 0 05/18/2012 capsule documented as of this encounter Progress Notes Maria Antonia Kidd, O.P.A.-C. - 02/16/2015 1:31 PM CST [id number] CHIEF COMPLAINT/REASON FOR VISIT Follow up of [...] ing the distal radius/scaphoid. There is 5/5 pet technologist strength. No elicitation of pain proximately and [...] ANTONIA KIDD On: 02/23/2015 01:16 PM Source: [facility] MHSDOLBEYNONRADSYS Document Id: [id number] OSTRATEGY REPORTS DEVELOPER documented in this encounter Miscellaneous Notes Miscellaneous - Maria Antonia Kidd O.P.A.-C. - 02/16/2015 2:13 PM MICROSTRATEGY REPORTS DEVELOPER Ambulatory Patient Summary [facility] [address] [place], [place] [phone] Visit Information Name: LEÓN HEDRICK [facility] Number: [id number] Current Date: 02/16/2015 14:13:30 Physicians [...] Date Time Location Provider 03/06/2015 14:00 [facility] Alysha Galvan MD Attention: Contact [...] if you dont have one. Go to [email or web address] and click on Create Your Account. Then, follow the directions to complete the online form. Youll be asked for your [facility] number which you can find at the top of this document. Your Goals/Additional instructions: Source: [facility] POWERCHART Document Id: [id number] OSTRATEGY REPORTS DEVELOPER Miscellaneous - Maria Antonia Kidd O.P.A.-C. - 02/16/2015 2:13 PM MICROSTRATEGY REPORTS DEVELOPER Ambulatory Discharge Medication List [facility] [address] [place] [phone] Visit Information Name: LEÓN HEDRICK [facility] Number: [id number] Visit Date: 02/16/2015 14:13:29 Attending [...] KIDD Signed On:16-FEB-2015 14:13:15 Additional Information: Source: [employer] Document Id: [id number] OSTRATEGY REPORTS DEVELOPER Miscellaneous - Ivis Stephens RAugustoN. - 02/16/2015 1:44 PM CST Radiology Scheduling Questionnaire Radiology Scheduling Questionnaire Entered On: 02/16/2015 13:45 MICROSTRATEGY REPORTS DEVELOPER Performed On: 02/16/2015 13:44 MICROSTRATEGY REPORTS DEVELOPER by IVIS STEPHENS LPN Radiology Scheduling Questionnaire Rad/Relevan Medications Grid Amiodarone : No Avandamet : No Glucophage : No Glucovance : No Metaglip : No Metformin : No Coumadin (warfarin) : No Plavix (clopidogrel) : No IVIS STEPHENS LPN - 02/16/2015 13:44 MICROSTRATEGY REPORTS DEVELOPER Rad/Iodinated Contrast Risk Grid Asthma : No CHF : No Chronic Renal Failure : No Diabetes : No Dialysis : No Dyspnea : No Emphysema/COPD : No Gout : No Hay Fever : No Iodine Allergy : No Multiple Myeloma : No One Kidney : No : No Previous [place] : No Other (document in Comments) : No IVIS STEPHENS LPN - 02/16/2015 13:44 MICROSTRATEGY REPORTS DEVELOPER Previous Films : No Previous Films Requested Today : No IVIS STEPHENS LPN - 02/16/2015 13:44 MICROSTRATEGY REPORTS DEVELOPER Source: [employer] Document Id: [id number] MICROSTRATEGY REPORTS DEVELOPER!29 OSTRATEGY REPORTS DEVELOPER Miscellaneous - Ivis Stephens, RAugustoN. - 02/16/2015 1:37 PM CST Adult Sustainability Officer Intake/History Adult Sustainability Officer Intake/History Entered On: 02/16/2015 13:38 MICROSTRATEGY REPORTS DEVELOPER Performed On: 02/16/2015 13:37 MICROSTRATEGY REPORTS DEVELOPER by IVIS STEPHENS [facility] Intake Chief Complaint : right wrist pain xray done 02/13/[address] or wrist IVIS STEPHENS LPN - 02/16/2015 13:37 MICROSTRATEGY REPORTS DEVELOPER General Info Information Given By : Patient Languages : Tanzanian Is Patient Female and 13-50 no hysterectomy : No IVIS STEPHENS LPN - 02/16/2015 13:37 MICROSTRATEGY REPORTS DEVELOPER Subjective Pain Symptoms : Yes IVIS STEPHENS LPN - 02/16/2015 13:37 MICROSTRATEGY REPORTS DEVELOPER Pain Scale Pain Scale Verbal 0-10 : Open IVIS STEPHENS LPN - 02/16/2015 13:37 MICROSTRATEGY REPORTS DEVELOPER Pain Pain Assessment Grid Pain 1 Location : Wrist Laterality : Right IVIS STEPHENS LPN - 02/16/2015 13:37 MICROSTRATEGY REPORTS DEVELOPER Dependent Habits Tobacco Use/Currently Using : No Exposure to Tobacco Smoke : Other: former Smoking Status : Former smoker IVIS STEPHENS LPN - 02/16/2015 13:37 MICROSTRATEGY REPORTS DEVELOPER Caffeine Use Grid Caffeine Use : Current Type : Coffee Frequency : Daily IVIS STEPHENS LPN - 02/16/2015 13:37 MICROSTRATEGY REPORTS DEVELOPER [facility] Document Id: [id number] MICROSTRATEGY REPORTS DEVELOPER!25 OSTRATEGY REPORTS DEVELOPER documented in this encounter Plan of Treatment Not on filedocumented as of this encounter Visit Diagnoses Not on filedocumented in this encounter Additional Health Concerns Assessment Noted Time PHQ-9 Depression Total Score: 20 02/13/2015 2:45 PM CS T documented as of this encounter
--- OUTSIDE RECORDS SUMMARY | 2022-01-02 15:08 | XMS_ITS | Encounter Summary ---
:1955 Author Organization [facility] Address [address] [place] [address] Care Team Providers Name Role Phone Unavailable Primary Care Provider Unavailable Encounter Details Date Type Department Care Team Description 03/06/2015 Hospital Encounter HX NO MAPPING Micheline Mcknight M.D. [address] [place], [place] [phone] (Wo rk) Social History [...] 1 tablet by 0 05/18/2012 mouth daily. rqoedtxgbanp-Lm-nqda-minerals Take 2 tablets by 0 05/20/2011 tablet mouth 2 (two) times a day. omeprazole (PriLOSEC) [address] Take by mouth. 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
--- OUTSIDE RECORDS SUMMARY | 2022-01-02 15:08 | XMS_ITS | Encounter Summary ---
:1955 Author Organization [facility] Address [address] [place] [address] Care Team Providers Name Role Phone Unavailable Primary Care Provider Unavailable Encounter Details Date Type Department Care Team Description 04/14/2016 Hospital Encounter HX [facility] Arabella Mauricio M.D. [address] [place], [place] [phone] (Wo rk) Social History [...] 1 tablet by 0 05/18/2012 mouth daily. esiboqtjmuxb-Lu-rrwe-minerals Take 2 tablets by 0 05/20/2011 tablet mouth 2 (two) times a day. omeprazole (PriLOSEC) [address] Take by mouth. 0 0 05/18/2012 capsule documented as of this encounter Progress Notes Arabella Mauricio M.D. - 04/14/2016 9:43 AM CST [id number] HISTORY OF PRESENT ILLNESS Ara is a [...] MAURICIO MD On: 04/15/2016 03:33 PM Source: [facility] MHSDOLBEYNONRADSYS Document Id: [id number] AND PENCILS DIPPER documented in this encounter Miscellaneous Notes Miscellaneous - Arabella Mauricio M.D. - 04/14/2016 10:43 AM CST Ambulatory Discharge Medication List [address] [id number] Visit Information Name: ARA CARTAGENA [facility] Number: [id number] Current Date: 04/14/2016 10:43:51 Attending [...] MD Signed On:14-APR-2016 10:43:48 Additional Information: Source: [facility] POWERCHART Document Id: [id number] AND PENCILS DIPPER Miscellaneous - Arabella Mauricio M.D. - 04/14/2016 10:43 AM CST Ambulatory Patient Summary [address] [id number] Visit Information Name: ARA CARTAGENA [facility] Number: [id number] Current Date: 04/14/2016 10:43:51 Physicians [...] online form. Youll be asked for your [facility] number which you can find at the top of this document. Your Goals/Additional instructions: Source: [employer] Document Id: [id number] AND PENCILS DIPPER Miscellaneous - Ashlie Cates L.P.N. - 04/14/2016 9:46 AM CST Adult Intelligence Research Specialist Intake/History Adult Intelligence Research Specialist Intake/History Entered On: 04/14/2016 9:50 PENS AND PENCILS DIPPER Performed On: 04/14/2016 9:46 PENS AND PENCILS DIPPER by ASHLIE CATES LPN Intake Chief Complaint : r wrist pain, HX old Fx injury, XR 04/10/15. might have some arthritis in it, she is here to see what can be done for the pain and discomfort, no vitals taken today. ASHLIE CATES LPN - 04/14/2016 9:46 PENS AND PENCILS DIPPER General Info Information Given By : Patient Preferred Communication Mode : Verbal Languages : Belarusian Is Patient Female and 13-50 no hysterectomy : No ASHLIE CATES LPN - 04/14/2016 9:46 PENS AND PENCILS DIPPER Subjective Pain Symptoms : Yes ASHLIE CATES LPN - 04/14/2016 9:46 PENS AND PENCILS DIPPER Pain Scale Pain Scale Verbal 0-10 : Open ASHLIE CATES LPN - 04/14/2016 9:46 PENS AND PENCILS DIPPER Pain Pain Assessment Grid Pain 1 Location : Wrist Laterality : Right Intensity : 10 Acceptable Intensity : 7 Time Pattern : Intermittent Quality : Aching, Sharp ASHLIE CATES LPN - 04/14/2016 9:46 PENS AND PENCILS DIPPER Dependent Habits Exposure to Tobacco Smoke : Other: former Smoking Status : Unknown if ever smoke Tobacco 2A : Unknown Tobacco Use/Currently Using : No Tobacco Use/Last 30 Days : No Tobacco Use/Last 12 months : No Tobacco Last Use/Month : March Tobacco Last Use/Year : 1992 ASHLIE CATES LPN - 04/14/2016 9:46 PENS AND PENCILS DIPPER Caffeine Use Grid Caffeine Use : Current Type : Coffee Frequency : Daily ASHLIE CATES LPN - 04/14/2016 9:46 PENS AND PENCILS DIPPER Source: [facility] POWERCHART Document Id: [id number] PENS AND PENCILS DIPPER!35 AND PENCILS DIPPER documented in this encounter Plan of Treatment Not on filedocumented as of this encounter Procedures Procedure Name Priority Date/Time Associated Diagnosis Comme nts DX WRIST RIGHT 3+ Routine 04/14/2016 9:56 AM Resu lts for this VIEWS PENS AND PENCILS DIPPER procedure are i n the results section. documented in this encounter Results DX Wrist Right 3+ Views (04/14/2016 9:56 AM PENS AND PENCILS DIPPER) Anatomical Region Laterality Modality Upper Extremity, Wrist Right Radiographic Imag ing Specimen (Source) Anatomical Collection Method Collection Time Re ceived Time Location / / Volume Laterality 04/14/2016 9:56 AM PENS AND PENCILS DIPPER Addenda Addendum by Provider, Samra Booker 04/14/2016 9:56 AM PENS AND PENCILS DIPPER RAD^^^OW XR Wrist Right 3 or more views 04/14/2016 09:56:46 Impressions 04/14/2016 10:22 AM PENS AND PENCILS DIPPER 1. ??See above dictation. Narrative 04/14/2016 10:22 AM PENS AND PENCILS DIPPER EXAM: ??XR Wrist Right 3 or more [...]
--- OUTSIDE RECORDS SUMMARY | 2022-01-02 15:08 | XMS_ITS | Encounter Summary ---
:1955 Author Organization [facility] Address [address] [place] [address] Care Team Providers Name Role Phone Unavailable Primary Care Provider Unavailable Reason for Visit Reason Comments Consult Urinary Incontinence Appointment Request (Routine) - Closed Specialty Diagnoses / Procedures Referred By Contact Refer red To Contact Obstetrics and Gynecology Referral ID Status Reason Start Date Expiration Date Visits Requ ested Visits Authorized [id number] Closed 06/05/2021 06/05/2022 1 1 Encounter Details Date Type Department Care Team Description 07/01/2021 Comprehensive Visit Department of [facility] [place] Urinary Obstetrics and Samra Parada Stress And Urge Gynecology in [address] (Primary Dx) [facility] [phone] [place] [address] [place], [place] (Work) [phone] Social History Tobacco Use Types Packs/Day Years [...] Adhesive, Beta-blockers (beta-adrenergic blocking agts), Cyclobenzaprine, Gum ckcgig-bisfvl-wkfi-alcohol, Hydrocodone, Hydromorphone, Milk, Mirtazapine, Morphine, Oxycodone, Pregabalin, [...] tablet Take 3-6 mg by mouth. ??? nnxyfaqhvqwf-Mt-ohdd-minerals tablet Take 2 tablets by mouth 2 [...] appearing external genitalia, Bartholin glands, urethra, and Alto's glands. Urethra: Positive cough stress test Vagina: [...] (07/01/2021 2:03 PM CDT) [facility] Signature Urine Culture Mixed 07/02/2021 MKTO frankie. (A) 4:07 PM CDT Specimen Anatomical Collection Method Collection Time Receive d Time (Source) Location / / Volume Laterality Urine (Urine, 07/01/2021 2:03 PM 07/02/19 7:00 Midstream) CDT PM CDT Comment: Specimen Source Site: Urine [facility] [place] M.D. LAB MICROBIOLOGY - GENERAL O RDERABLES Performing Organization Address City/State/ZIP Code Phon e Number [facility]- [address] [place] [address] [place] [address] System in [place] [address] [place] [address] documented in this encounter Visit Diagnoses Diagnosis Incontinence Urinary Stress And Urge - P rimary documented in this encounter Additional Health Concerns Assessment Noted Time PHQ-9 Depression Total Score: 02/13/2015 2:45 PM CS T documented as of this encounter
--- OUTSIDE RECORDS SUMMARY | 2022-01-02 15:08 | XMS_ITS | Encounter Summary ---
:1955 Author Organization [facility] Address [address] [place] [address] Care Team Providers Name Role Phone Unavailable Primary Care Provider Unavailable Encounter Details Date Type Department Care Team Description 2015 Hospital Encounter HX [facility] Singh Szymanski, P.A.-CAugusto [address] [place], [place] [address] Social History Tobacco Use [...] 1 tablet by 0 05/18/2012 mouth daily. edguvtcljlee-At-jijl-minerals Take 2 tablets by 0 05/20/2011 tablet mouth 2 (two) times a day. omeprazole (PriLOSEC) [address] Take by mouth. 0 0 05/18/2012 capsule documented as of this encounter Progress Notes Maria Antonia Kidd, O.P.A.-C. - 2015 2:27 PM CST [id number] CHIEF COMPLAINT/REASON FOR VISIT Followup of right [...] ANTONIA KIDD On: 04/02/2015 08:56 AM Source: [facility] MHSDOLBEYNONRADSYS Document Id: [id number] UER SPRAY BOOTH OPERATOR documented in this encounter Miscellaneous Notes Miscellaneous - Maria Antonia Kidd O.P.A.-C. - 2015 3:13 PM LACQUER SPRAY BOOTH OPERATOR Ambulatory Patient Summary [facility] [address] [place], [place] [phone] Visit Information Name: ARA HEDRICK [facility] Number: [id number] Current Date: 2015 15:13:15 Physicians [...] if you dont have one. Go to [email or web address] and click on Create Your Account. Then, follow the directions to complete the online form. Youll be asked for your [facility] number which you can find at the top of this document. Your Goals/Additional instructions: Source: [facility] POWERCHART Document Id: [id number] UER SPRAY BOOTH OPERATOR Miscellaneous - Maria Antonia Kidd O.P.A.-C. - 2015 3:13 PM LACQUER SPRAY BOOTH OPERATOR Ambulatory Discharge Medication List [address] [id number] Visit Information Name: ARA HEDRICK [facility] Number: [id number] Visit Date: 2015 15:13:14 Attending [...] PA Signed On:27-MAR-2015 15:13:00 Additional Information: Source: [facility] POWERCHART Document Id: [id number] UER SPRAY BOOTH OPERATOR Miscellaneous - Melvi De L.PAugustoNAugusto - 2015 2:37 PM CST Adult Partner Cco Intake/History Adult Partner Cco Intake/History Entered On: 2015 14:47 LACQUER SPRAY BOOTH OPERATOR Performed On: 2015 14:37 LACQUER SPRAY BOOTH OPERATOR by MELVI DE LPN Intake Chief Complaint : Recheck right distal radius fx. Here for cast check. Has areas of irritation from padding which has deteriated since last appointment. Onset of Symptoms : 01/30/15 MELVI DE LPN - 2015 14:37 LACQUER SPRAY BOOTH OPERATOR General Info Information Given By : Patient Languages : Croatian Is Patient Female and 13-50 no hysterectomy : No MELVI DE LPN - 2015 14:37 LACQUER SPRAY BOOTH OPERATOR Subjective Pain Symptoms : No MELVI DE LPN - 2015 14:37 LACQUER SPRAY BOOTH OPERATOR Dependent Habits Exposure to Tobacco Smoke : Other: former Smoking Status : Former smoker Tobacco 2A : Yes Tobacco Use/Currently Using : No Tobacco Use/Last 30 Days : No Tobacco Use/Last 12 months : No Tobacco Last Use/Month : March Tobacco Last Use/Year : 1992 MELVI DE DIE REPAIR MACHINIST - 2015 14:37 LACQUER SPRAY BOOTH OPERATOR Caffeine Use Grid Caffeine Use : Current Type : Coffee Frequency : Daily MELVI DE Stacie DIE REPAIR MACHINIST - 2015 14:37 LACQUER SPRAY BOOTH OPERATOR Source: [facility] POWERCHART Document Id: [id number] LACQUER SPRAY BOOTH OPERATOR!24 UER SPRAY BOOTH OPERATOR documented in this encounter Plan of Treatment Not on filedocumented as of this encounter Procedures Procedure Name Priority Date/Time Associated Diagnosis Comme nts DX WRIST RIGHT 3+ Routine 2015 2:51 PM Resu lts for this VIEWS LACQUER SPRAY BOOTH OPERATOR procedure are i n the results section. documented in this encounter Results DX Wrist Right 3+ Views (2015 2:51 PM LACQUER SPRAY BOOTH OPERATOR) Anatomical Region Laterality Modality Upper Extremity, Wrist Right Radiographic Imag ing Specimen (Source) Anatomical Collection Method Collection Time Re ceived Time Location / / Volume Laterality 2015 2:51 PM LACQUER SPRAY BOOTH OPERATOR Addenda Addendum by Provider, Samra Booker o soumya 2015 2:51 PM LACQUER SPRAY BOOTH OPERATOR RAD^^^OW XR Wrist Right 3 or more views 2015 14:51:50 Impressions 2015 3:37 PM LACQUER SPRAY BOOTH OPERATOR Skeletally mature individual. Good bone quality. [...] some arthritic change. Narrative 2015 3:37 PM LACQUER SPRAY BOOTH OPERATOR EXAM: XR Wrist Right 3 or [...] does have some arthritic change. [place] Early(Monique) [facility] PROC EDURES documented in this encounter Visit Diagnoses Not on filedocumented in this encounter Additional Health Concerns Assessment Noted Time PHQ-9 Depression Total Score: 20 02/13/2015 2:45 PM CS T documented as of this encounter
--- OUTSIDE RECORDS SUMMARY | 2022-01-02 15:08 | XMS_ITS | Encounter Summary ---
:1955 Author Organization [facility] Address [address] [place] [address] Care Team Providers Name Role Phone Unavailable Primary Care Provider Unavailable Encounter Details Date Type Department Care Team Description 10/24/2014 Hospital Encounter [facility]X [facility] PMTR Kaiden Guerrero M.D. [address] [place] [address], [address] [place], [place] [phone] (Wo rk) Social History Tobacco Use Types [...] 1 tablet by 0 05/18/2012 mouth daily. swaiesyivjog-Dq-wrlg-minerals Take 2 tablets by 0 05/20/2011 tablet mouth 2 (two) times a day. omeprazole (PriLOSEC) [address] Take by mouth. 0 0 05/18/2012 capsule documented as of this encounter Consult Notes Yasmany Guerrero M.D. - 10/24/2014 2:41 PM CDT [id number] CHIEF COMPLAINT/REASON FOR VISIT Low back and [...] PTSD. SOCIAL HISTORY Ms. Cartagena lives in [place]. She is currently not employed. She does [...] cc: Cleo Schmidt M.D. [address] [place] [address] Electronically Signed By: YASMANY GUERRERO MD On: 10/26/2014 01:12 PM Modified by and Electronically Signed by: YASMANY GUERRERO MD On: 10/26/2014 01:12 PM Source: [facility] MHSDOLBEYNONRADSYS Document Id: [id number] documented in this encounter Miscellaneous Notes Telephone Encounter - Ailyn Meza - 11/21/2014 8:22 AM CDT FB MRI Document Contains Addenda Addendum by AILYN MEZA LPN on 21 November 2014 09:55:59 CDT Order faxed. Addendum by MARY KAY COX on 21 November 2014 09:13:00 CDT From: MARY KAY COX ([facility] Syrup Machine Laborer/Radiology Outside [facility]) To: AILYN MEZA LPN; Sent: 11/21/2014 09:13:00 CDT Subject: RE: FB MRI No authorization required. From: AILYN MEZA LPN To: [facility] Syrup Machine Laborer/Radiology Outside [facility]; Sent: 11/21/2014 08:22:30 CDT Subject: FB MRI Patient Referred to Provider/Facility: [facility] Ordering Provider: [facility] Ordered: MRI Lumbar Spine Diagnosis: Low back pain When patient was seen on 10-24-2014, she stated she would have insurance on 11-21-2014, she would like to have MRI now. [facility] Document Id: [id number] Electronically signed by Conversion, [facility] Window Dresser [id number] at 08/18/2016 1:57 AM CDT Telephone Encounter - Conversion, Historical Provider Ser - 10/26/2014 12:07 PM CDT *Phone Message/Guerrero Document Contains Addenda Addendum by AILYN MEZA on 26 October 2014 14:29:43 CDT Spoke with patient; she stated she will have insurance November 21 and would like to have MRI done after that. From: CANDIDO MOREL ( [employer] [address] Mail Technician) To: Physical Medicine and Rehabilitation Staff; Sent: [...] B: A: R: Please call Ara at [phone]. Message: Advice/Action: Source used: ( ) Verbalizes [...] back cell phone number ( ) Source: [facility] Document Id: [id number] Telephone Encounter - Ailyn Meza - 10/24/2014 [...] GILBERT GRIFFITHS ([facility] Syrup Machine Laborer/Radiology [facility]) To: AILYN MEZA; Sent: 10/26/2014 09:00:37 CDT Subject: RE: FB MRI Prior Auth Patient is self pay, message sent to [employer] to assist patient with financial counseling. From: AILYN MEZA To: [facility] Syrup Machine Laborer/Radiology [facility]; Sent: 10/24/2014 15:44:06 CDT Subject: FB MRI Prior Auth Patient Referred to Provider/Facility: [facility] Ordering Provider: [facility] Ordered: Lumbar Spine MRI Diagnosis: Lumbar Radiculopathy Source: [facility] POWERCHART Document Id: [id number] Electronically signed by Dante [facility] Window Dresser [id number] at 08/18/2016 1:57 AM CDT Miscellaneous - Yasmany Guerrero M.D. - 10/24/2014 3:39 PM CDT Ambulatory Patient Summary [facility] [address] [place] [id number] Visit Information Name: ARA CARTAGENA [facility] Number: [id number] Current Date: 10/24/2014 15:39:36 Physicians [...] if you dont have one. Go to [email or web address] and click on Create Your Account. Then, follow the directions to complete the online form. Youll be asked for your [facility] number which you can find at the top of this document. Your Goals/Additional instructions: Source: [facility] POWERCHART Document Id: [id number] Karina - Yasmany Guerrero M.D. - 10/24/2014 3:39 PM CDT Ambulatory Discharge Medication List [address] [id number] Visit Information Name: OSIELARA [facility] Number: [id number] Visit Date: 10/24/2014 15:39:36 Attending [...] MD Signed On:24-OCT-2014 15:39:09 Additional Information: Source: [facility] POWERCHART Document Id: [id number] RT Karina - Ailyn Meza - 10/24/2014 3:02 PM CDT Adult Informatics Pharmacist Intake/History Adult Informatics Pharmacist Intake/History Entered On: 10/24/2014 15:05 CDT Performed [...] Preferred Communication Mode : Verbal Languages : [place] Is Patient Female and 13-50 no hysterectomy : AILYN Patel - 10/24/2014 15:02 CDT Subjective Pain Symptoms : AILYN Patel - 10/24/2014 15:02 CDT Dependent Habits Tobacco Use/Currently Using : No Exposure to Tobacco Smoke : Other: former Smoking Status : Former smoker AILYN MEZA - 10/24/2014 15:02 CDT Source: [facility] POWERCHART Document Id: [id number] CDT!20 documented in this encounter Plan of Treatment Not on filedocumented as of this encounter Visit Diagnoses Not on filedocumented in this encounter
--- OUTSIDE RECORDS SUMMARY | 2022-01-02 15:08 | XMS_ITS | Encounter Summary ---
:1955 Author Organization [facility] Address [address] [place] [address] Care Team Providers Name Role Phone Unavailable Primary Care Provider Unavailable Encounter Details Date Type Department Care Team Description 02/13/2015 Hospital Encounter HX [facility] FAMILYPRA Alysha Fay i, M.D. [address] [place] [address] (Wo rk) Social History Tobacco Use Types Packs/Day Years Used Date Smoking Tobacco: Never Assessed Sex Assigned at Date Recorded Not on file documented as of this encounter Last Filed Vital Signs Vital Sign Reading Time Taken Comments Blood Pressure 112/78 02/13/2015 2:41 PM ELECTRICIAN OUTSIDE Pulse 76 02/13/2015 2:41 PM ELECTRICIAN OUTSIDE Temperature - - Respiratory Rate 16 02/13/2015 2:41 PM ELECTRICIAN OUTSIDE Oxygen Saturation - - Inhaled Oxygen Concentration [...] 1 tablet by 0 05/18/2012 mouth daily. mrtrhmffmydv-Nu-bgyh-minerals Take 2 tablets by 0 05/20/2011 tablet mouth 2 (two) times a day. omeprazole (PriLOSEC) [address] Take by mouth. 0 0 05/18/2012 capsule documented as of this encounter H&P Notes Alysha Hopper M.D. - 02/13/2015 1:58 PM CST [id number] CHIEF COMPLAINT/ REASON FOR VISIT Review medications, [...] medication list from her pharmacy which is [facility] in [place]. Influenza vaccine was administered today. 2. Right distal radius fracture. Right wrist x-ray was obtained and indicated a right distal radius fracture. Provided patient with a thumb spica splint; will refer to orthopedics for further evaluation and management. 3. Psychiatric concerns. She follows with Dr. Ochoa at [facility]. 4. Skin lesion. She will need a biopsy to rule out malignancy. 5. Follow up. The patient will contact the clinic with any new or worsening symptoms. This document serves as a record of services personally performed by Alysha Galvan MD. It was created on their behalf by Sadie Dee, a trained medical collections. The creation of this record is based on the scribe's personal observations and the provider's statements to them. This document has been leslie cked and approved by the attending provider. Alysha Conrad M.D./taryn Electronically Signed By: ALYSHA HOPPER MD On: 02/13/2015 06:27 PM Source: [facility] MHSDOLBEYNSYED Document Id: [id number] TRICIAN OUTSIDE documented in this encounter Nursing Notes Amanda Anderson L.P.N. - 02/13/2015 4:35 PM CST the patient has been informed of other medical supply locations within the area. the patient has been fitted with a thumb spica 8 inch mid right hand splint. instructions were given on the proper careand usage of the product with the patient understanding via verbalizing of instructions. [facility] return and warrantly policy was given and reviewed. Electronically Signed By: AMANDA ANDERSON LPN On: 02/13/2015 04:39 PM Source: [facility] POWERCHART Document Id: [id number] TRICIAN OUTSIDE documented in this encounter Miscellaneous Notes Miscellaneous - Alysha Hopper M.D. - 02/13/2015 11:38 PM ELECTRICIAN OUTSIDE Ambulatory Patient Summary [address] [id number] Visit Information Name: ARA HEDRICK [facility] Number: [id number] Current Date: 02/13/2015 23:38:08 Physicians [...] Appointments Date Time Location Provider 03/06/2015 14:00 [facility] Alysha Galvan MD Attention: Contact your [...] you dont have one. Go to [email or web address] and click on Create Your Account. Then, follow the directions to complete the online form. Youll be asked for your [facility] number which you can find at the top of this document. Your Goals/Additional instructions: Source: [facility] POWERCHART Document Id: [id number] TRICIAN OUTSIDE Miscellaneous - Alysha Hopper M.D. - 02/13/2015 11:38 PM ELECTRICIAN OUTSIDE Ambulatory Discharge Medication List [address] [place], [place] [phone] Visit Information Name: ARA HEDRICK [facility] Number: [id number] Visit Date: 02/13/2015 23:38:07 Attending [...] MD Signed On:13-FEB-2015 23:38:01 Additional Information: Source: [facility] POWERCHART Document Id: [id number] TRICIAN OUTSIDE Telephone Encounter - Conversion, Historical Provider Ser - 02/13/2015 4:10 PM CST *Phone Message Document Contains Addenda Addendum by MARIA ANTONIA PURVIS on 14 February 2015 10:35:55 ELECTRICIAN OUTSIDE From: MARIA ANTONIA UPRVIS To: OW Orthopedic Nurse; Sent: 02/14/2015 10:35:55 ELECTRICIAN OUTSIDE Subject: RE: *Phone Message OK Koko Addendum by MELVI BARDALES LPN on 14 February 2015 09:20:26 ELECTRICIAN OUTSIDE From: MELVI BARDALES LPN ( Orthopedic Nurse) To: MARIA ANTONIA PURVIS; Sent: 02/14/2015 09:20:26 ELECTRICIAN OUTSIDE Subject: FW: *Phone Message Patient notified of message below and verbalizes understanding of plan of care. Call transferred to scheduling desk. Appointment given with LARRY Lockwood on 02/16/15 Addendum by EMMANUEL MONTANO MD on 14 February 2015 08:52:33 ELECTRICIAN OUTSIDE From: EMMANUEL MONTANO MD To: Orthopedic Nurse; Sent: 02/14/2015 08:52:33 ELECTRICIAN OUTSIDE Subject: RE: *Phone Message should see one of the PAs for further work-up. Potential CT depending on exam. Addendum by ELLIE PAGE LPN on 13 February 2015 16:12:35 ELECTRICIAN OUTSIDE From: ELLIE PAGE LPN ( Orthopedic Nurse) To: EMMANUEL MONTANO MD; Sent: 02/13/2015 16:12:35 ELECTRICIAN OUTSIDE Subject: FW: *Phone Message Please review and advise for treatment. From: TYLER OROZCO ([address] Unemployment Insurance Director) To: Orthopedic Nurse; Sent: 02/13/2015 16:10:33 ELECTRICIAN OUTSIDE Subject: *Phone Message Caller is: ( ) [...] a: Callback r: Patient is Ara at [phone] Advice/Action: Source used: ( ) Verbalizes understanding [...] back cell phone number ( ) Source: [facility] [employer]izeeBee Document Id: [id number] Miscellaneous - Amanda Anderson L.P.N. - 02/13/2015 2:48 PM CST Health Assessment Health Assessment Entered On: 02/13/2015 14:50 ELECTRICIAN OUTSIDE Performed On: 02/13/2015 14:48 ELECTRICIAN OUTSIDE by AMANDA ANDERSON LPN Health Assessment Complete Health Assessment Complete or Modified : Annual Health Assessment Annual Health Assessment Completed : Yes AMANDA ANDERSON LPN - 02/13/2015 14:48 ELECTRICIAN OUTSIDE Nutrition Nutrition Risk Factors by History Adult : None AMANDA ANDERSON LPN - 02/13/2015 14:48 ELECTRICIAN OUTSIDE Functional Living Situation : Home independently Current Daily Living Assistance : Housekeeping AMANDA ANDERSON LPN - 02/13/2015 14:48 ELECTRICIAN OUTSIDE Dependent Habits Tobacco Use/Currently Using : No Tobacco Use/Last 12 months : No Exposure to Tobacco Smoke : Other: former Smoking Status : Former smoker Alcohol Use : No AMANDA ANDERSON LPN - 02/13/2015 14:48 ELECTRICIAN OUTSIDE Caffeine Use Grid Caffeine Use : Current Type : Coffee Frequency : Daily AMANDA ANDERSON LPN - 02/13/2015 14:48 ELECTRICIAN OUTSIDE Psychosocial Domestic Abuse Concerns : None Behavioral Health Screen/Safety Assmt : No [place] Preference : No qualifying data available. AMANDA ANDERSON LPN - 02/13/2015 14:48 ELECTRICIAN OUTSIDE Advance Directive Advanced Directives : No Advance Directive Additional Information : Yes Advance Directive Comments : packet given to patient at appt AMANDA ANDERSON LPN - 02/13/2015 14:48 ELECTRICIAN OUTSIDE Educ Needs Learning Style Preference Adult Grid Patient : Demonstration, Printed materials, Verbal explanation Family : None AMANDA ANDERSON LPN - 02/13/2015 14:48 ELECTRICIAN OUTSIDE Source: [employer] Document Id: [id number] ELECTRICIAN OUTSIDE!32 TRICIAN OUTSIDE Miscellaneous - Amanda Anderson, L.P.N. - 02/13/2015 2:47 PM CST SREE-7 SREE-7 Entered On: 02/13/2015 14:48 ELECTRICIAN OUTSIDE Performed On: 02/13/2015 14:47 ELECTRICIAN OUTSIDE by AMANDA ANDERSON LPN GAD7 GAD7 Feeling [...] difficult AMANDA ANDERSON LPN - 02/13/2015 14:47 ELECTRICIAN OUTSIDE Source: [employer] Document Id: [id number] ELECTRICIAN OUTSIDE!11 TRICIAN OUTSIDE Miscellaneous - Amanda Anderson, L.P.N. - 02/13/2015 2:45 PM CST PHQ-9 PHQ-9 Entered On: 02/13/2015 14:47 ELECTRICIAN OUTSIDE Performed On: 02/13/2015 14:45 ELECTRICIAN OUTSIDE by AMANDA ANDERSON LPN PHQ-9 Little interest [...] difficult AMANDA ANDERSON LPN - 02/13/2015 14:45 ELECTRICIAN OUTSIDE [facility]: [facility] Document Id: [id number] ELECTRICIAN OUTSIDE!13 TRICIAN OUTSIDE Miscellaneous - Amanda Anderson L.P.N. 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 Automatic Intake/History Adult Tin Tie Machine Operator Automatic Intake/History Entered On: 02/13/2015 14:45 ELECTRICIAN OUTSIDE Performed On: 02/13/2015 14:41 ELECTRICIAN OUTSIDE by AMANDA ANDERSON [facility] Intake Chief Complaint : establish care meet [...] Pressure Cuff Size : Regular AMANDA ANDERSON [facility] - 02/13/2015 14:41 ELECTRICIAN OUTSIDE General Info Information Given By : Patient Preferred Communication Mode : Verbal Languages : [place] Is Patient Female and 13-50 no hysterectomy : No AMANDA ANDERSON LPN - 02/13/2015 14:41 ELECTRICIAN OUTSIDE Subjective Pain Symptoms : Yes AMANDA ANDERSON LPN - 02/13/2015 14:41 ELECTRICIAN OUTSIDE Pain Scale Pain Scale Verbal 0-10 : Open AMANDA ANDERSON LPN - 02/13/2015 14:41 ELECTRICIAN OUTSIDE Pain Pain Assessment Grid Pain 1 Pain 2 Pain 3 Location : Lower back Upper back Wrist Laterality : Right Right Right Intensity : 6 4 7 AMANDA ANDERSON LPN - 02/13/2015 14:41 ELECTRICIAN OUTSIDE AMANDA ANDERSON LPN - 02/13/2015 14:41 ELECTRICIAN OUTSIDE AMANDA ANDERSON DENTAL LABORATORY TECHNICIAN APPRENTICE - 02/13/2015 14:41 ELECTRICIAN OUTSIDE Dependent Habits Tobacco Use/Currently Using : No Tobacco Use/Last 12 months : No Exposure to Tobacco Smoke : Other: former Smoking Status : Former smoker AMANDA ANDERSON DENTAL LABORATORY TECHNICIAN APPRENTICE - 02/13/2015 14:41 ELECTRICIAN OUTSIDE Source: [facility] POWERCHART Document Id: [id number] ELECTRICIAN OUTSIDE!39 TRICIAN OUTSIDE documented in this encounter Plan of Treatment Not on filedocumented as of this encounter Procedures Procedure Name Priority Date/Time Associated Diagnosis Comme nts DX WRIST RIGHT 3+ Routine 02/13/2015 3:25 PM Resu lts for this VIEWS ELECTRICIAN OUTSIDE procedure are i n the results section. documented in this encounter Results DX Wrist Right 3+ Views (02/13/2015 3:25 PM ELECTRICIAN OUTSIDE) Anatomical Region Laterality Modality Upper Extremity, Wrist Right Radiographic Imag ing Specimen (Source) Anatomical Collection Method Collection Time Re ceived Time Location / / Volume Laterality 02/13/2015 3:25 PM ELECTRICIAN OUTSIDE Impressions 02/13/2015 3:53 PM ELECTRICIAN OUTSIDE Age-indeterminate possibly, chronic appearing avulsion fracture fragment the tip of th e right ulnar styloid Age-indeterminate possibly subacute/radio broadcaster nataliia appearing fracture fragment near the tip [...] wrist inju ry. Narrative 02/13/2015 3:53 PM ELECTRICIAN OUTSIDE EXAM: ??XR Wrist Right 3 or more [...] th e right ulnar styloid Age-indeterminate possibly subacute/radio broadcaster nataliia appearing fracture fragment near the tip [...]
--- OUTSIDE RECORDS SUMMARY | 2022-01-02 15:08 | XMS_ITS | Encounter Summary ---
:1955 Author Organization [facility] Address [address] [place] [address] Care Team Providers Name Role Phone Unavailable Primary Care Provider Unavailable Encounter Details Date Type Department Care Team Description 02/23/2015 Hospital Encounter HX [facility]-CT OP Kenney Kidd P.A.-C. [address], [place] [address] Social History Tobacco Use [...] 1 tablet by 0 05/18/2012 mouth daily. dpczfiucoaxt-Jk-idos-minerals Take 2 tablets by 0 05/20/2011 tablet mouth 2 (two) times a day. omeprazole (PriLOSEC) [address] Take by mouth. 0 0 05/18/2012 capsule documented as of this encounter Plan of Treatment Not on filedocumented as of this encounter Procedures Procedure Name Priority Date/Time Associated Diagnosis Comme nts CT WRIST RIGHT Routine 02/23/2015 3:00 PM Results for this WITHOUT IV CONTRAST FAST FOOD WORKER procedur e are in the results section. documented in this encounter Results CT Wrist Right without IV Contrast (02/23/2015 3:00 PM FAST FOOD WORKER) Anatomical Region Laterality Modality Upper Extremity, Wrist Right Computed Tomograp hy Specimen (Source) Anatomical Collection Method Collection Time Re ceived Time Location / / Volume Laterality 02/23/2015 3:00 PM FAST FOOD WORKER Impressions 02/23/2015 2:35 PM FAST FOOD WORKER Increasing, obliquely oriented, slightly comminuted intra-articular fracture [...] of the scaphoid. Narrative 02/23/2015 2:35 PM FAST FOOD WORKER EXAM: ??CT Wrist Right w/o contrast AGE: [...]
--- OUTSIDE RECORDS SUMMARY | 2022-01-02 15:08 | XMS_ITS | Encounter Summary ---
:1955 Author Organization [facility] Address [address] [place] [address] Care Team Providers Name Role Phone Unavailable Primary Care Provider Unavailable Encounter Details Date Type Department Care Team Description 03/06/2015 Hospital Encounter [facility]X [facility] FB FAMILYPRA Alysha Fay i, M.D. [address] [place] [address] (Wo rk) Social History Tobacco Use Types Packs/Day Years Used Date Smoking Tobacco: Never Assessed Sex Assigned at Date Recorded Not on file documented as of this encounter Last Filed Vital Signs Vital Sign Reading Time Taken Comments Blood Pressure 102/72 03/06/2015 2:54 PM FINANCIAL SERVICES CONSULTANT Pulse 88 03/06/2015 2:54 PM FINANCIAL SERVICES CONSULTANT Temperature - - Respiratory Rate 20 03/06/2015 2:54 PM FINANCIAL SERVICES CONSULTANT Oxygen Saturation - - Inhaled Oxygen Concentration [...] 1 tablet by 0 05/18/2012 mouth daily. dpxsbpaaqxsl-Vz-fudk-minerals Take 2 tablets by 0 05/20/2011 tablet mouth 2 (two) times a day. omeprazole (PriLOSEC) [address] Take by mouth. 0 0 05/18/2012 capsule documented as of this encounter Progress Notes Alysha Lehman M.D. - 03/06/2015 1:48 PM CST [id number] CHIEF COMPLAINT/ REASON FOR VISIT Skin biopsy. [...] behalf by Sadie Dee, a trained medical claims processor. The creation of this record is based on the scribe's personal observations and the provider's statements to them. This document has been leslie cked and approved by the attending provider. Alysha Conrad M.D./taryn Electronically Signed By: ALYSHA LEHMAN MD On: 03/20/2015 12:21 AM Source: [facility] MHSDOLBEYNONRADSYS Document Id: [id number] NCIAL SERVICES CONSULTANT documented in this encounter Miscellaneous Notes Miscellaneous - Alysha Lehman M.D. - 03/17/2015 5:13 PM FINANCIAL SERVICES CONSULTANT Custom Result Letter 17 March 2015 ARA CARTAGENA [address] [facility] [id number] Dear ARA CARTAGENA, The skin lesion on your scalp was negative for cancer. Sincerely, ALYSHA CONRAD [address] [place] [address] Electronic Signature Electronically Signed By: ALYSHA LEHMAN MD On: 17 March 2015 This document has images extracted. Source: [facility] POWERCHART Document Id: [id number] Electronically signed by Dante [facility] W[facility] Leaf Inspector [id number] at 08/18/2016 8:31 PM CDT Miscellaneous - Amanda Roberto, L.P.N. - 03/06/2015 2:54 PM CST Adult Surfacer Intake/History Adult Surfacer Intake/History Entered On: 03/06/2015 14:57 FINANCIAL SERVICES CONSULTANT Performed On: 03/06/2015 14:54 FINANCIAL SERVICES CONSULTANT by AM[facility]DA ROBERTO [facility] Intake Chief Complaint : sdkin biopsy of [...] Pressure Cuff Size : Regular AMANDA ROBERTO [facility] - 03/06/2015 14:54 FINANCIAL SERVICES CONSULTANT General Info Information Given By : Patient Preferred Communication Mode : Verbal Languages : Macedonian Is Patient Female and 13-50 no hysterectomy : No AMANDA ROBERTO LPN - 03/06/2015 14:54 FINANCIAL SERVICES CONSULTANT Subjective Pain Symptoms : Yes AMANDA ROBERTO LPN - 03/06/2015 14:54 FINANCIAL SERVICES CONSULTANT Pain Scale Pain Scale Verbal 0-10 : Open AMANDA ROBERTO LPN - 03/06/2015 14:54 FINANCIAL SERVICES CONSULTANT Pain Pain Assessment Grid Pain 1 Location : Lower back Laterality : Right Intensity : 5 AMANDA ROBERTO LPN - 03/06/2015 14:54 FINANCIAL SERVICES CONSULTANT Dependent Habits Exposure to Tobacco Smoke : Other: former Smoking Status : Former smoker Tobacco 2A : Yes Tobacco Use/Currently Using : No Tobacco Use/Last 30 Days : No Tobacco Use/Last 12 months : No AMANDA ROBERTO LPN - 03/06/2015 14:54 FINANCIAL SERVICES CONSULTANT Caffeine Use Grid Caffeine Use : Current Type : Coffee Frequency : Daily AMANDA ROBERTO LPN - 03/06/2015 14:54 FINANCIAL SERVICES CONSULTANT Source: [facility] POWERCHART Document Id: [id number] FINANCIAL SERVICES CONSULTANT!39 NCIAL SERVICES CONSULTANT documented in this encounter Plan of Treatment Not on filedocumented as of this encounter Procedures Procedure Name Priority Date/Time Associated Diagnosis Comme nts SURGICAL PATHOLOGY Routine 03/06/2015 2:02 PM Res ults for this FINANCIAL SERVICES CONSULTANT procedure are i n the results section. documented in this encounter Results Pathology Surgical Pathology (03/06/2015 2:02 PM FINANCIAL SERVICES CONSULTANT) Specimen (Source) Anatomical Collection Method Collection Time Re ceived Time Location / / Volume Laterality 03/06/2015 2:02 PM FINANCIAL SERVICES CONSULTANT Narrative [facility] - 03/08/2015 11:34 AM FINANCIAL SERVICES CONSULTANT [facility] in [place] [id number] [facility] [address] [place] [address] Patient Name: ARA CARTAGENA Patient ID #: [id number] Collected: 03/06/2015 Address: [facility]/Zip: [address] [place] [address] ??[phone] Received: Reported: 03/07/2015 03/08/2015 Soc. Sec. #: ?/Age/Sex 1955 (Age: 59) ??F Physician(s): BRIANA CONRAD MD Copy To: ? [facility] ??[id number] [address] [facility] SURGICAL PATHOLOGY REPORT FINAL DIAGNOSIS: SKIN, RIGHT SIDE OF SCALP: --- IRRITATED KERATOSIS SUGGESTING A JESSE ORRHEIC KERATOSIS AND ASSOCIATED MILD CHRONIC INFLAMMATION. dms/03/08/2015 PEDRITO CONTEH M.D. Report electronically released. Interpretation by PEDRITO CONTEH M.D. SPECIMEN(S) RECEIVED: RIGHT SIDE OF SCALP GROSS DESCRIPTION: Consists of a 2 mm skin punch. Sectioned . ESB, one cassette. ([id number]) DDG/MARGARITA/03/07/2015 MICROSCOPIC DESCRIPTION: Reviewed by Pedrito Conteh M.D.; Path ologist PAP/03/08/2015 Alysha Mcknight M.D. LAB SURG PATH ORDERABL ES Performing Organization Address City/[facility]/ZIP Code Phon e Number [facility] documented in this encounter Visit Diagnoses Not on filedocumented in this encounter Additional Health Concerns Assessment Noted Time PHQ-9 Depression Total Score: 20 02/13/2015 2:45 PM CS T documented as of this encounter
--- OUTSIDE RECORDS SUMMARY | 2022-01-02 15:08 | XMS_ITS | Encounter Summary ---
:1955 Author Organization [facility] Address [address] [place] [address] Care Team Providers Name Role Phone Unavailable Primary Care Provider Unavailable Encounter Details Date Type Department Care Team Description 11/10/2016 Hospital Encounter HX [facility] ORTHO Arabella Mauricio M.D. [address] [place], [place] [address] (Wo rk) Social History [...] 1 tablet by 0 05/18/2012 mouth daily. xzdxhcfajjed-Bw-egju-minerals Take 2 tablets by 0 05/20/2011 tablet mouth 2 (two) times a day. omeprazole (PriLOSEC) [address] Take by mouth. 0 0 05/18/2012 capsule documented as of this encounter Progress Notes Arabella Mauricio M.D. - 11/10/2016 10:55 AM CDT [id number] HISTORY OF PRESENT ILLNESS León is a [...] clinic on an as-needed basis. Arabella Mauricio M.D./baudiloi Electronically Signed By: ARABELLA MAURICIO MD On: 11/10/2016 12:19 PM Source: [facility] MHSDOLBEYNONRADSYS Document Id: [id number] documented in this encounter Miscellaneous Notes Telephone [...] - Left message to call back Source: [facility] POWERCHART Document Id: [id number] Miscellaneous - Arabella Mauricio M.D. - 11/10/2016 11:18 AM CDT Ambulatory Patient Summary [address] [id number] Visit Information Name: OSIEL LEÓN Pancho [facility] Number: [id number] Current Date: 11/10/2016 11:18:52 Physicians [...] you dont have one. Go to [email or web address] and click on Create Your Account. Then, follow the directions to complete the online form. Youll be asked for your [facility] number which you can find at the top of this document. Your Goals/Additional instructions: Source: [facility] POWERCHART Document Id: [id number] Miscellaneous - Arabella Mauricio M.D. - 11/10/2016 11:18 AM CDT Ambulatory Discharge Medication List [address] [id number] Visit Information Name: LEÓN HEDRICK [facility] Number: [id number] Current Date: 11/10/2016 11:18:51 Attending [...] in case of emergency. Electronically Signed By: ARABELAL MAURICIO MD Signed On:10-NOV-2016 11:18:49 Additional Information: Source: [facility] POWERCHART Document Id: [id number] Miscellaneous - Brennen Benitez C.MEdward - 11/10/2016 11:05 AM CDT Adult Health Assistant Intake/History Adult Health Assistant Intake/History Entered On: 11/10/2016 11:07 CDT Performed On: 11/10/2016 11:05 CDT by BRENNEN BENITEZ [facility] Intake Chief Complaint : Left shoulder pain for about three weeks, no trauma. Pain is constant, more painful with motion. Losing strength Ambulatory Intake Additional Information : Refused vitals BRENNEN BENITEZ [facility] - 11/10/2016 11:05 CDT General Info Information Given By : Patient Preferred Communication Mode : Verbal Languages : Georgian Is Patient Female and 13-50 no hysterectomy : No BRENNEN BENITEZ [facility] - 11/10/2016 11:05 CDT Subjective Pain Symptoms : Yes BRENNEN BENITEZ [facility] - 11/10/2016 11:05 CDT Pain Scale Pain Scale Verbal 0-10 : Open BRENNEN BENITEZ [facility] - 11/10/2016 11:05 CDT Pain Pain Assessment Grid Pain 1 Location : Shoulder Laterality : Left Intensity : 4 BRENNEN BENITEZ [facility] - 11/10/2016 11:05 CDT Dependent Habits Exposure to Tobacco Smoke : Other: former Smoking Status : Former smoker Tobacco 2A : Yes Tobacco Use/Currently Using : No Tobacco Use/Last 30 Days : No Tobacco Use/Last 12 months : No Tobacco Last Use/Month : March Tobacco Last Use/Year : 1992 BRENNEN BENITEZ [facility] - 11/10/2016 11:05 CDT Caffeine Use Grid Caffeine Use : Current Type : Coffee Frequency : Daily BRENNEN BENITEZ [facility] - 11/10/2016 11:05 CDT Source: [employer] Document Id: [id number] CDT!33 documented in this encounter Plan of Treatment Not on filedocumented as of this encounter Visit Diagnoses Not on filedocumented in this encounter Additional Health Concerns Assessment Noted Time PHQ-9 Depression Total Score: 20 02/13/2015 2:45 PM CS T documented as of this encounter
--- OUTSIDE RECORDS SUMMARY | 2022-01-02 15:08 | XMS_ITS | Encounter Summary ---
:1955 Author Organization [facility] Address [address] [place] [address] Care Team Providers Name Role Phone Unavailable Primary Care Provider Unavailable Encounter Details Date Type Department Care Team Description 04/10/2015 Hospital Encounter HX [facility] OWOC Singh Szymanski, P.A.-CAugusto [address] [place], [place] [address] Social History Tobacco Use [...] 1 tablet by 0 05/18/2012 mouth daily. ymlxuehmpuwt-Qk-wtss-minerals Take 2 tablets by 0 05/20/2011 tablet mouth 2 (two) times a day. omeprazole (PriLOSEC) [address] Take by mouth. 0 0 05/18/2012 capsule documented as of this encounter Progress Notes Maria Antonia Kidd, O.P.A.-C. - 04/10/2015 2:33 PM CST [id number] CHIEF COMPLAINT/REASON FOR VISIT Followup of right [...] ANTONIA KIDD On: 04/13/2015 02:46 PM Source: [facility] MHSDOLBEYNONRADSYS Document Id: [id number] NING CENTER INSTRUCTOR documented in this encounter Miscellaneous Notes Miscellaneous - Maria Antonia Kidd O.P.A.-C. - 04/10/2015 3:38 PM LEARNING CENTER INSTRUCTOR Ambulatory Patient Summary [facility] [address] [place] [id number] Visit Information Name: ARA HEDRICK [facility] Number: [id number] Current Date: 04/10/2015 15:38:18 Physicians [...] you dont have one. Go to [email or web address] and click on Create Your Account. Then, follow the directions to complete the online form. Youll be asked for your [facility] number which you can find at the top of this document. Your Goals/Additional instructions: Source: [facility] POWERCHART Document Id: [id number] NING CENTER INSTRUCTOR Miscellaneous - Maria Antonia Kidd O.P.A.-C. - 04/10/2015 3:38 PM LEARNING CENTER INSTRUCTOR Ambulatory Discharge Medication List [facility] [address] [place] [id number] Visit Information Name: ARA HEDRICK [facility] Number: [id number] Visit Date: 04/10/2015 15:38:17 Attending Provider: MARIA ANTONIA IKDD Primary Care Provider: ALYSHA HOPPER MD ARA [...] PA Signed On:10-APR-2015 15:22:16 Additional Information: Source: [facility] POWERCHART Document Id: [id number] NING CENTER INSTRUCTOR Miscellaneous - Melvi De L.PAugustoNAugusto - 04/10/2015 2:38 PM CST Adult Middle School Volleyball Coach Intake/History 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 Arrives in SAC. Onset of Symptoms : 01/30/15 MELVI DE LPN - 04/10/2015 14:38 LEARNING CENTER INSTRUCTOR General Info Information Given By : Patient Languages : Maltese Is Patient Female and 13-50 no hysterectomy : No MELVI DE LPN - 04/10/2015 14:38 LEARNING CENTER INSTRUCTOR Subjective Pain Symptoms : No MELVI DE LPN - 04/10/2015 14:38 LEARNING CENTER INSTRUCTOR Dependent Habits Exposure to Tobacco Smoke : Other: former Smoking Status : Former smoker Tobacco 2A : Yes Tobacco Use/Currently Using : No Tobacco Use/Last 30 Days : No Tobacco Use/Last 12 months : No Tobacco Last Use/Month : March Tobacco Last Use/Year : 1992 MELVI DE LPN - 04/10/2015 14:38 LEARNING CENTER INSTRUCTOR Caffeine Use Grid Caffeine Use : Current Type : Coffee Frequency : Daily MELVI DE LPN - 04/10/2015 14:38 LEARNING CENTER INSTRUCTOR Source: [facility] POWERCHART Document Id: [id number] LEARNING CENTER INSTRUCTOR!24 NING CENTER INSTRUCTOR documented in this encounter Plan of Treatment Not on filedocumented as of this encounter Procedures Procedure Name Priority Date/Time Associated Diagnosis Comme nts DX WRIST RIGHT 3+ Routine 04/10/2015 2:51 PM Resu lts for this VIEWS LEARNING CENTER INSTRUCTOR procedure are i n the results section. documented in this encounter Results DX Wrist Right 3+ Views (04/10/2015 2:51 PM LEARNING CENTER INSTRUCTOR) Anatomical Region Laterality Modality Upper Extremity, Wrist Right Radiographic Imag ing Specimen (Source) Anatomical Collection Method Collection Time Re ceived Time Location / / Volume Laterality 04/10/2015 2:51 PM LEARNING CENTER INSTRUCTOR Addenda Addendum by Provider, Samra Booker 04/10/2015 2:51 PM LEARNING CENTER INSTRUCTOR RAD^^^OW XR Wrist Right 3 or more views 04/10/2015 14:51:52 Impressions 04/11/2015 11:57 AM LEARNING CENTER INSTRUCTOR Skeletally mature individual. Good bone quality. Has a healing radial styloid fracture. Fractur e goes into the radio scaphoid fossa. Fracture has some depres kenan about 2 to 3 mm. Fracture does look to be healing. Also h as a displaced ulnar styloid fracture which may be more chronic. Narrative 04/11/2015 11:57 AM LEARNING CENTER INSTRUCTOR EXAM: XR Wrist Right 3 or more [...]
--- OUTSIDE RECORDS SUMMARY | 2022-01-02 15:08 | XMS_ITS | Encounter Summary ---
:1955 Author Organization [facility] Address [address] [place] [address] Care Team Providers Name Role Phone Unavailable Primary Care Provider Unavailable Encounter Details Date Type Department Care Team Description 02/28/2015 Hospital Encounter HX [facility] OWOC Singh Szymanski, P.A.-CAugusto [address] [place], [place] [address] Social History Tobacco Use [...] 1 tablet by 0 05/18/2012 mouth daily. kkiavuivpmxw-Xe-zjju-minerals Take 2 tablets by 0 05/20/2011 tablet mouth 2 (two) times a day. omeprazole (PriLOSEC) [address] Take by mouth. 0 0 05/18/2012 capsule documented as of this encounter Progress Notes Maria Antonia Kidd, O.P.A.-C. - 02/28/2015 10:23 AM CST [id number] CHIEF COMPLAINT/REASON FOR VISIT Followup of CT [...] ANTONIA KIDD On: 03/05/2015 01:56 PM Source: [facility] MHSDOLBEYNONRADSYS Document Id: [id number] NESS DEPARTMENT CHAIR documented in this encounter Miscellaneous Notes Miscellaneous - Maria Antonia Kidd O.P.A.-C. - 02/28/2015 11:30 AM BUSINESS DEPARTMENT CHAIR Ambulatory Patient Summary [facility] [address] [place], [place] [id number] Visit Information Name: OSIELGRACIEARA E [facility] Number: [id number] Current Date: 02/28/2015 11:30:32 Physicians [...] Ortho Maria Antonia Kidd PA-C 03/06/2015 14:00 [facility] Alysha Galvan MD Attention: Contact [...] if you dont have one. Go to [email or web address] and click on Create Your Account. Then, follow the directions to complete the online form. Youll be asked for your [facility] number which you can find at the top of this document. Your Goals/Additional instructions: Source: [facility] POWERCHART Document Id: [id number] NESS DEPARTMENT CHAIR Miscellaneous - Maria Antonia Kidd, O.PMir. - 02/28/2015 11:30 AM BUSINESS DEPARTMENT CHAIR Ambulatory Discharge Medication List [facility] [address] [place] [id number] Visit Information Name: ARA HEDRICK [facility] Number: [id number] Visit Date: 02/28/2015 11:30:32 Attending [...] PA Signed On:28-FEB-2015 11:30:04 Additional Information: Source: [facility] POWERCHART Document Id: [id number] NESS DEPARTMENT CHAIR Miscellaneous - Tamara Fernandez, L.P.N. - 02/28/2015 10:33 AM BUSINESS DEPARTMENT CHAIR Adult Stopper Maker Helper Intake/History Adult Stopper Maker Helper Intake/History Entered On: 02/28/2015 10:34 BUSINESS DEPARTMENT CHAIR Performed On: 02/28/2015 10:33 BUSINESS DEPARTMENT CHAIR by TAMARA FERNANDEZ LPN Intake Chief Complaint : f/u right radius fx TAMARA FERNANDEZ LPN - 02/28/2015 10:33 BUSINESS DEPARTMENT CHAIR General Info Information Given By : Patient Languages : Thai Is Patient Female and 13-50 no hysterectomy : No TAMARA FERNANDEZ LPN - 02/28/2015 10:33 BUSINESS DEPARTMENT CHAIR Subjective Pain Symptoms : Yes TAMARA FERNANDEZ LPN - 02/28/2015 10:33 BUSINESS DEPARTMENT CHAIR Pain Scale Pain Scale Verbal 0-10 : Open TAMARA FERNANDEZ LPN - 02/28/2015 10:33 BUSINESS DEPARTMENT CHAIR Pain Pain Assessment Grid Pain 1 Location : Lower arm Laterality : Right Intensity : 3 TAMARA FERNANDEZ [facility] - 02/28/2015 10:33 BUSINESS DEPARTMENT CHAIR Dependent Habits Exposure to Tobacco Smoke : Other: former Smoking Status : Former smoker Tobacco 2A : Yes Tobacco Use/Currently Using : No Tobacco Use/Last 30 Days : No Tobacco Use/Last 12 months : No TAMARA FERNANDEZ [facility] - 02/28/2015 10:33 BUSINESS DEPARTMENT CHAIR Caffeine Use Grid Caffeine Use : Current Type : Coffee Frequency : Daily TAMARA FERNANDEZ Stacie [facility] - 02/28/2015 10:33 BUSINESS DEPARTMENT CHAIR [facility] Document Id: [id number] BUSINESS DEPARTMENT CHAIR!29 NESS DEPARTMENT CHAIR documented in this encounter Plan of Treatment Not on filedocumented as of this encounter Procedures Procedure Name Priority Date/Time Associated Diagnosis Comme nts DX WRIST RIGHT 3+ Routine 02/28/2015 10:58 AM Res ults for this VIEWS BUSINESS DEPARTMENT CHAIR procedure are i n the results section. documented in this encounter Results DX Wrist Right 3+ Views (02/28/2015 10:58 AM BUSINESS DEPARTMENT CHAIR) Anatomical Region Laterality Modality Upper Extremity, Wrist Right Radiographic Imag ing Specimen (Source) Anatomical Collection Method Collection Time Re ceived Time Location / / Volume Laterality 02/28/2015 10:58 AM BUSINESS DEPARTMENT CHAIR Impressions 02/28/2015 11:47 AM BUSINESS DEPARTMENT CHAIR Skeletally mature individual. Good bone quality. Currently in a cast. Has a distal radius fracture that's an intra-articular fracture in remains in e xcellent alignment. Also has an old ulnar styloid fracture. 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 Narrative 02/28/2015 11:47 AM BUSINESS DEPARTMENT CHAIR EXAM: XR Wrist Right 3 or more [...]
--- OUTSIDE RECORDS SUMMARY | 2022-01-02 15:08 | XMS_ITS | Encounter Summary ---
:1955 Author Organization [facility] Address [address] [place] [address] Care Team Providers Name Role Phone Unavailable Primary Care Provider Unavailable Encounter Details Date Type Department Care Team Description 03/05/2015 Hospital Encounter HX [facility] Singh Szymanski, P.A.-CAugusto [address] [place], [place] [address] Social History Tobacco Use [...] 1 tablet by 0 05/18/2012 mouth daily. hezynorbltam-Pn-wmki-minerals Take 2 tablets by 0 05/20/2011 tablet mouth 2 (two) times a day. omeprazole (PriLOSEC) [address] Take by mouth. 0 0 05/18/2012 capsule documented as of this encounter Progress Notes Maria Antonia Kidd, O.P.AAugusto-CAugusto - 03/05/2015 10:35 AM CST [id number] CHIEF COMPLAINT/REASON FOR VISIT Followup of right [...] ANTONIA KIDD On: 03/07/2015 01:19 PM Source: [facility] MHSDOLBEYNONRADSYS Document Id: [id number] IFIED LACTATION COUNSELOR documented in this encounter Miscellaneous Notes Miscellaneous - Maria Antonia Kidd O.P.A.-C. - 03/05/2015 1:10 PM CERTIFIED LACTATION COUNSELOR Ambulatory Patient Summary [facility] [address] [place] [id number] Visit Information Name: LEÓN HEDRICK [facility] Number: [id number] Current Date: 03/05/2015 13:10:56 Physicians [...] Appointments Date Time Location Provider 03/06/2015 14:00 [facility] Alysha Galvan MD Attention: Contact your [...] if you dont have one. Go to [email or web address] and click on Create Your Account. Then, follow the directions to complete the online form. Youll be asked for your [facility] number which you can find at the top of this document. Your Goals/Additional instructions: Source: [facility] POWERCHART Document Id: [id number] IFIED LACTATION COUNSELOR Miscellaneous - Maria Antonia Kidd O.P.A.-C. - 03/05/2015 1:10 PM CERTIFIED LACTATION COUNSELOR Ambulatory Discharge Medication List [address] [id number] Visit Information Name: LEÓN HEDRICK [facility] Number: [id number] Visit Date: 03/05/2015 13:10:54 Attending [...] PA Signed On:05-MAR-2015 13:01:48 Additional Information: [facility] Document Id: [id number] IFIED LACTATION COUNSELOR Miscellaneous - Henny Aragon L.P.N. - 03/05/2015 10:41 AM CST Adult Clinical Studies Specialist Intake/History Adult Clinical Studies Specialist Intake/History Entered On: 03/05/2015 10:45 CERTIFIED LACTATION COUNSELOR Performed On: 03/05/2015 10:41 CERTIFIED LACTATION COUNSELOR by EHNNY ARAGON [facility] [address] Intake Chief Complaint : one week follow up on right forearm fx Onset of Symptoms : 01/30/15 no work comp HENNY ARAGON [facility] [address] - 03/05/2015 10:41 CERTIFIED LACTATION COUNSELOR General Info Information Given By : Patient Preferred Communication Mode : Verbal Languages : Vincentian Is Patient Female and 13-50 no hysterectomy : No HENNY ARAGON [facility] [address] - 03/05/2015 10:41 CERTIFIED LACTATION COUNSELOR Subjective Pain Symptoms : Yes HENNY ARAGON STUDENT DEVELOPMENT ADVISOR - 03/05/2015 10:41 CERTIFIED LACTATION COUNSELOR Pain Scale Pain Scale Verbal 0-10 : Open HENNY ARAGON STUDENT DEVELOPMENT ADVISOR - 03/05/2015 10:41 CERTIFIED LACTATION COUNSELOR Pain Pain Assessment Grid Pain 1 Location : Lower arm Laterality : Left Intensity : 1 HENNY ARAGON [facility] - 03/05/2015 10:41 CERTIFIED LACTATION COUNSELOR Dependent Habits Exposure to Tobacco Smoke : Other: former Smoking Status : Former smoker Tobacco 2A : Yes Tobacco Use/Currently Using : No Tobacco Use/Last 30 Days : No Tobacco Use/Last 12 months : No HENNY ARAGON LPN - 03/05/2015 10:41 CERTIFIED LACTATION COUNSELOR Caffeine Use Grid Caffeine Use : Current Type : Coffee Frequency : Daily HENNY ARAGON LPN - 03/05/2015 10:41 CERTIFIED LACTATION COUNSELOR Source: [facility] POWERCHART Document Id: [id number] CERTIFIED LACTATION COUNSELOR!31 IFIED LACTATION COUNSELOR documented in this encounter Plan of Treatment Not on filedocumented as of this encounter Procedures Procedure Name Priority Date/Time Associated Diagnosis Comme nts DX WRIST RIGHT 3+ Routine 03/05/2015 11:07 AM Res ults for this VIEWS CERTIFIED LACTATION COUNSELOR procedure are i n the results section. documented in this encounter Results DX Wrist Right 3+ Views (03/05/2015 11:07 AM CERTIFIED LACTATION COUNSELOR) Anatomical Region Laterality Modality Upper Extremity, Wrist Right Radiographic Imag ing Specimen (Source) Anatomical Collection Method Collection Time Re ceived Time Location / / Volume Laterality 03/05/2015 11:07 AM CERTIFIED LACTATION COUNSELOR Impressions 03/05/2015 11:57 AM CERTIFIED LACTATION COUNSELOR Skeletally mature individual. Good bone quality. There is an intra-articular distal radius fractur e into the scaphoid fossa. Fractured does look to have some very sl ight depression with the step off of a couple millimeters. No signific ant change in alignment from previous x-rays. Narrative 03/05/2015 11:57 AM CERTIFIED LACTATION COUNSELOR EXAM: XR Wrist Right 3 or more [...]
--- OUTSIDE RECORDS SUMMARY | 2022-01-02 15:08 | XMS_ITS | Encounter Summary ---
:1955 Author Organization [facility] Address [address] [place] [address] Care Team Providers Name Role Phone Unavailable Primary Care Provider Unavailable Encounter Details Date Type Department Care Team Description 12/20/2014 Hospital Encounter HX [facility] Kaiden Guerrero M.D. [address] [place] [address], [address] [place], [place] [phone] (Wo rk) Social History Tobacco Use Types [...] 1 tablet by 0 05/18/2012 mouth daily. dkrmbzdcnhqo-Wq-ysnm-minerals Take 2 tablets by 0 05/20/2011 tablet mouth 2 (two) times a day. omeprazole (PriLOSEC) [address] Take by mouth. 0 0 05/18/2012 capsule documented as of this encounter Progress Notes Yasmany Guerrreo M.D. - 12/20/2014 2:47 PM CDT [id number] CHIEF COMPLAINT/REASON FOR VISIT Follow up low [...] plan. Yasmany Guerrero M.D./baudilio cc: Lesli Schmidt [phone] [place] [address] Electronically Signed By: YASMANY GUERRERO MD On: 12/25/2014 10:43 AM Modified by and Electronically Signed by: YASMANY GUERRERO MD On: 12/25/2014 10:43 AM Source: [facility] MHSDOLBEYNONRADSYS Document Id: [id number] documented in this encounter Miscellaneous Notes Telephone Encounter - Conversion, Historical Provider Ser - 12/22/2014 2:46 PM CDT *Phone Message/Dr. Guerrero Document Contains Addenda Addendum by AMENA HOBSON LPN on 25 December 2014 13:24:57 CDT Patient notified. Addendum by CHIQUI GONZALEZ on 25 December 2014 12:07:14 CDT Returning call to [facility] please call León back at [phone] Addendum by AMENA HOBSON LPN on 25 December 2014 11:41:12 CDT left message to return call. From: MARY KAY BANEGAS ([facility] Tongue Carrier) To: Physical Medicine and Rehabilitation Staff; Sent: [...] A R Please call patient back at [phone] to advise. Advice/Action: Source used: ( ) [...] back cell phone number ( ) Source: [facility] [employer] Document Id: [id number] Miscellaneous - Yasmany Guerrero M.D. - 12/20/2014 3:21 PM CDT Ambulatory Patient Summary [address] [id number] Visit Information Name: LEÓN CARTAGENA [facility] Number: [id number] Current Date: 12/20/2014 15:21:16 Physicians [...] if you dont have one. Go to [email or web address] and click on Create Your Account. Then, follow the directions to complete the online form. Youll be asked for your [facility] number which you can find at the top of this document. Your Goals/Additional instructions: Source: [facility] POWERCHART Document Id: [id number] Miscellaneous - Yasmany Guerrero M.D. - 12/20/2014 3:21 PM CDT Ambulatory Discharge Medication List [address] [id number] Visit Information Name: LEÓN CARTAGENA [facility] Number: [id number] Visit Date: 12/20/2014 15:21:15 Attending [...] MD Signed On:20-DEC-2014 15:20:31 Additional Information: Source: [facility] POWERCHART Document Id: [id number] Miscellaneous - Sadia Meza - 12/20/2014 2:54 PM CDT Adult Residential Insurance Inspector Intake/History Adult Residential Insurance Inspector Intake/History Entered On: 12/20/2014 14:55 CDT Performed [...] Preferred Communication Mode : Verbal Languages : Kyrgyz Is Patient Female and 13-50 no hysterectomy : No SADIA MEZA LPN - 12/20/2014 14:54 CDT Subjective Pain Symptoms : No SADIA MEZA LPN - 12/20/2014 14:54 CDT Dependent Habits Tobacco Use/Currently Using : No Exposure to Tobacco Smoke : Other: former Smoking Status : Former smoker SUSANA SADIA Salvador FURNITURE BUILDER - 12/20/2014 14:54 CDT Source: [facility] POWERCHART Document Id: [id number] CDT!19 Miscellaneous - Yasmany Guerrero M.D. - 12/20/2014 12:00 AM CDT [id number] December 20, 2014 [facility] [address] [place] [id number] RE: León Cartagena : 1955 To Whom [...] M.D. Department of Physical Medicine and Rehabilitation [facility] [address] [address] Phone: ap Electronically Signed By: YASMANY GUERRERO MD On: 12/25/2014 11:05 AM Modified by and Electronically Signed by: YASMANY GUERRERO MD On: 12/25/2014 11:05 AM Source: [facility] MHSDOLBEYNONRADSYS Document Id: [id number] documented in this encounter Plan of Treatment Not on filedocumented as of this encounter Visit Diagnoses Not on filedocumented in this encounter
--- OUTSIDE RECORDS SUMMARY | 2022-01-02 15:08 | XMS_ITS | Encounter Summary ---
:1955 Author Organization [facility] Address [address] [place] [address] Care Team Providers Name Role Phone Unavailable Primary Care Provider Unavailable Encounter Details Date Type Department Care Team Description 01/20/2017 Orders Only [facility], Medicine in [place] zamorano M.D . [place] [address] [place], [place] [address] [phone] (Wo rk) Social History Tobacco Use Types [...]
--- OUTSIDE RECORDS SUMMARY | 2022-01-02 15:08 | XMS_ITS | Encounter Summary ---
:1955 Author Organization [facility] Address [address] [place] [address] Care Team Providers Name Role Phone Unavailable Primary Care Provider Unavailable Encounter Details Date Type Department Care Team Description 01/31/2021 Orders Only [facility] Sa chayito Renteria M.D. [address] [place], [place] [phone] (Wo rk) Social History [...]
--- OUTSIDE RECORDS SUMMARY | 2022-01-02 15:09 | XMS_ITS | Clinical Summary ---
:1955 Author Organization [facility] [employer] [facility] [place] [address] Care Team Providers Name Role Phone Arcelia Villaseñor MD Primary Care Provider [phone] Allergies Active Allergy Reactions Severity Noted Date Comments Adhesive Rash, Itching 04/26/2015 Adhesive Tape-Silicones Rash 03/28/2019 Beta-Blockers Muscle Weakness 10/19/2014 (Beta-Adrenergic Blocking Agts) Hydromorphone Behavioral 05/03/2015 Disturbances Cyclobenzaprine *Unknown 12/27/2018 ? depression Hydrocodone Anxiety 02/08/2018 Only notices an xiety when taking ove r prolonged perio ds of time. Pregabalin Other - Describe In 10/18/2014 Gave pt suicidal Comment Field thoughts Gum Rash 03/28/2019 Eekxjj-Jdtleb-Hesd-Alcoh ol Milk GI Upset 04/26/2015 Does ok [...] Field Medications Medication Sig Dispensed Refills Start Date End Date Status CPAPIndications: JIMMIE autoCPAP, 1 Device 0 07/10/2015 Active (obstructive sleep apnea) heated humidifier, mask, headgear, filters and tubing. Pressure: 4-10cm/H2O Length of Need: 99 fish oil-omega-3 fatty Take 1 capsule 0 Active acids (FISH OIL) by mouth once 1,200-360 mg cap daily. One capsule is 1200 mg-360 mg cholecalciferol (VITAMIN Take 1,000 0 Active D) 1,000 unit tablet Units by mouth once daily. aspirin 325 mg tablet Take 650 mg by 0 Active mouth every 4 hours if needed for Headache or Pain. WalkerIndications: S/P Walker with front wheels for home use. 1 Dev ice 0 01/21/2018 Active lumbar fusion Anticipate use for 4-6 weeks lidocaine 5% (LIDODERM) 5 Apply on dry, 30 Patch 11 03/28/2020 Active % patchIndications: clean, hairless Chronic pain syndrome, skin. Apply 1 Pain disorder associated patch to with psychological and painful area of physical factors, Spinal skin for up to stenosis of lumbar region to 12 hours without neurogenic within 24 hour claudication, Chronic period. pain of right knee diclofenac topical Apply 2 g 50 g 0 03/28/2020 Active (VOLTAREN) 1 % topically to gelIndications: Chronic affected pain syndrome, Pain area(s) 4 times disorder associated with daily. psychological and physical factors, Spinal stenosis of lumbar region without neurogenic claudication, Chronic pain of right knee tiZANidine (ZANAFLEX) 4 TAKE 1 TABLET 90 Tablet 2 05/28/2020 Active mg tabletIndications: BY MOUTH EVERY Chronic midline low back 6 HOURS pain without sciatica NEEDED FOR MUSCLE SPASM alendronate (FOSAMAX) 70 Take 1 Tablet 12 Tablet 3 07/02/2021 Active mg tabletIndications: (70 mg) by Osteopenia, unspecified mouth once a location week in the morning. Take on empty stomach with full glass of water. Do not lie down for 1 hr. melatonin 3 mg Take 2 Tablets 180 Tablet 3 07/15/2021 Active tabletIndications: Sleep (6 mg) by mouth concern once daily. omeprazole (PRILOSEC) 40 TAKE ONE 90 Capsule 2 08/12/2021 Active mg Delayed-Release CAPSULE BY capsuleIndications: MOUTH EVERY Gastroesophageal reflux DAY, AT 30 disease, unspecified MINUTES BEFORE whether esophagitis EATING present hydroCHLOROthiazide Take 1 Tablet 90 Tablet 3 08/16/2021 Active (HCTZ) 25 mg (25 mg) by tabletIndications: mouth once Essential hypertension daily. losartan (COZAAR) 50 mg Take 1 Tablet 90 Tablet 3 08/16/2021 Active tabletIndications: (50 mg) by Essential hypertension mouth once daily. ondansetron (ZOFRAN ODT) Place 1 Tablet 30 Tablet 0 10/25/2021 Active 4 mg disintegrating (4 mg) on the tabletIndications: Nausea tongue every 8 and vomiting, unspecified hours if needed vomiting type for Nausea/Vomiting . azithromycin (ZITHROMAX) Take 500 mg (2 6 Tablet 0 10/25/2021 Active 250 mg tabletIndications: tabs) by mouth Cough on day 1, then 250 mg (1 tab) daily for days 2-5. traZODone (DESYREL) 50 mg Take 1.5 to 2 180 Tablet 0 2 Active tabletIndications: tablets by Insomnia, unspecified mouth at type bedtime if needed for sleep. Take 45 minutes to 1 hour before bedtime. ARIPiprazole (Abilify) 5 Take 1 Tablet 90 Tablet 0 11/26/2021 Active mg tabletIndications: (5 mg) by mouth Major depressive at bedtime. disorder, recurrent episode, moderate (HC) sertraline (ZOLOFT) 100 Take 1 Tablet 90 Tablet 0 11/26/2021 Active mg tabletIndications: (100 mg) by Major depressive mouth once disorder, recurrent daily. episode, moderate (HC), Generalized anxiety disorder oxyCODONE-acetaminophen, Take 1 Tablet 15 Tablet 0 12/31/2021 Active 7.5-325 mg, (Percocet) by mouth every per tabletIndications: 6 hours if Acute midline low back needed for pain with right-sided Pain. sciatica Hospital, Clinic, or Ordered Dose Route Frequency Start Date End D ate Status Other Facility Administered Medication midazolam (PF) (VERSED) 0.5 - 6 mg IV EACH TIME PRN 02/21/2019 Active injection 0.5-6 mg fentaNYL (PF) 25-400 mcg 25 - 400 mcg IV EACH TIME PRN 02/22/20 19 Active injection (SUBLIMAZE) Active Problems Problem Noted [...] medical examination 03/06/2006 09/29/2013 Overview: colonoscopy - 2006, mammo 2006 Encounters Date Type Specialty Care Team Description 01/02/2022 Travel 01/02/2022 Nurse Triage Arcelia Villaseñor Leg Pain/ problem MD Cheikh 12/25/2021 Office Visit Danielito Toussaint MD Hospital F/U (EKG) 12/25/2021 Travel 12/19/2021 Orders Only Scanner <No scans attac hed> 12/19/2021 Orders Only Scanner <No scans attac hed> 12/19/2021 Orders Only Scanner <No scans attac hed> 12/19/2021 Travel 12/19/2021 Nurse Triage Arcelia Villaseñor Leg Pain/ problem MD Cheikh 12/19/2021 Nurse Triage Arcelia Villaseñor MD 12/04/2021 Telephone Arcelia Villaseñor Blood Pre ssure (/High MD Cheikh Blood Pressure) 11/26/2021 Telemedicine Kelsi Pike Telehealth ; Follow Up MD Arcelia 11/26/2021 E-Visit Mychart, Provider 11/26/2021 E-Visit Mychart, Provider 11/26/2021 E-Visit Mychart, Provider 11/14/2021 Travel 11/13/2021 Telemedicine Karma Moses Telehealth; Medication Daya, SOLE ROUNDER Management 11/13/2021 E-Visit Mychart, Provider 11/13/2021 E-Visit Ramiro Kelly for General MD Johnnie Patricio 11/13/2021 E-Visit Mychart, Provider 11/13/2021 E-Visit Mychart, Provider 11/04/2021 Phone Office Visit Kelsi Pike Erro r-please disregnasrin Paniagua MD (appt cancellat ion) 11/04/2021 Telephone Kelsi Pike Questions; Medication MD Arcelia Management 11/04/2021 Travel 10/25/2021 Phone Office Visit Ramiro Kelly Phone Visit; Medication MD Sheng Management (Elly magana positive for CO VID-19 on 10/13/21, having lots of mucus, diarrhea , nausea, achy) 10/21/2021 Office Visit Honey Rogers, SOLE ROUNDER Urinar y Problem 10/21/2021 Travel 10/21/2021 Nurse Triage Arcelia Villaseñor Pain On U rination MD Cheikh 10/21/2021 Telephone Arcelia Villaseñor Concerns MD Cheikh 10/04/2021 Phone Office Visit Kelsi Pike [facility] Management MD Arcelia (Lexapro and Cy mbalta Rx's by PCP, pt stopped late June/ y July-didn't like how made her feel./Not t aking Melatonin or Li doderm patch. ); Phone Visit () 10/04/2021 Travel from Last 3 Months Immunizations Name Administration Dates Next Due COVID-19 vaccine (Sur[employer]key 06/27/2020, 06/06/2020 30mcg/0.3mL) PF, MDV Hepatitis B [...] or relatives? How often do you attend episcopalian or protestant More than 4 time s per year 05/27/2018 services? Do you belong to any clubs or organizations Yes 05/27/2018 such as episcopalian groups, unions, fraternal or athletic groups, or [...] to pay for the very basics like [employer] hat hard 05/27/2018 food, housing, medical care, [...] 10 days, have you been in contact No / Unsure 01/02/2022 12:44 PM CDT with someone who was confirmed or suspected to have Coronavirus/COVID-19? Obstetrics History Para Term AB IAB SAB Ectopic Multiple Living Live Births 3 3 3 Date Outcome GA Total Labor/2nd/3rd Weight Sex Delivery Anes PTL Navya A 1 A5 Name Clin Labor Para Para Para Last Filed Vital Signs Vital Sign Reading Time Taken Comments Blood Pressure 118/80 12/25/2021 2:33 PM CDT Pulse 93 12/25/2021 2:33 PM CDT Temperature 36.7 ??C (98.1 ??F) 10/21/2021 2:22 PM CDT Respiratory Rate 16 10/21/2021 2:22 PM CDT Oxygen Saturation 97% 12/25/2021 2:33 PM CDT Inhaled Oxygen Concentration - - Weight 86.2 kg (190 lb) 11/18/2019 1:26 PM CDT Height 160 cm (5' 3) 11/18/2019 1:26 PM CDT Body Mass Index 33.66 11/18/2019 1:26 PM CDT Plan of Treatment Upcoming Encounters Date Type Specialty Care Team Description 01/07/2022 Telemedicine Lasha Pike MD [address] [place], [place] [phone] (Wo rk) 01/15/2022 Orders Only [facility], Neha Sap Bods Developer 01/21/2022 Office Visit Andrews Malagon MD [id number] [place] [address] (Wo rk) Health Maintenance Due Date Last Done Comments Zoster (shingles) series for age 0305/26/2013 03/31/2013 50+ (2 of 3) Mammogram for age 45-75 07/09/2019 07/08/2018, 02/13/2016, 02/10/2014, Additional history exists BMI (ht and wt on same day) for 11/17/2020 11/18/2019, 08/2019, age 18+ 04/18/2015 COVID-19 vaccine series (4 - 04/25/2021 02/28/2021, 021, Booster for Pfizer series) 06/06/2020 Influenza for age 65+ 11/21/2021 02/28/2021, 03/28/2020, 01/18/2019, Additional history exists Medicare Wellness for age 65+ 05/08/2022 05/08/2021, 2020, 06/24/2018, Additional history exists Depression screening for age 12+ 11/26/2022 11/26/2021, , 11/04/2021, Additional history exists Lipids for age 45-75 03/28/2025 03/28/2020, 06/24/2018, 06/24/2017, Additional history exists Colonoscopy through age 75 04/06/2028 04/06/2018, 9 (Completed outside of [facility]) Tetanus booster 04/08/2029 04/08/2019, 02/10/2008, 10/19/1990, Additional [...] THAN 130/80 Medical Devices Implanted Type Area Business Administration Program Chair Device Shelf Model / Identifier Expiration Serial / Date Lot Plate Timesh 4mm 2 Hole Timesh - [id number] Right: SOFAMOR DANEK [id number]# / Implanted: Qty: 2 on 01/13/2007 at [facility] Implants Cranium / Cmnt Bone Surg Simplex - [id number] Right: HOWMEDICA [id number]# / Implanted: Qty: 1 on 01/13/2007 at [facility] Cranium / [id number] Spacer Lmbr 54r23nt Capstone Tlif - [id number] Spine Med tronic [id number] / Implanted: Qty: 1 on 04/26/2015 by Ciro Acosta MD at [facility] Spine/Ortho / [id number] Wilfredo Lmbr 100x5.5mm Solera 5.5/6 Cvd Titnm - [id number] N/A: Lumbar Medtronic [id number] / Implanted: Qty: 2 on 01/18/2018 by Ciro Jasso MD a t [facility] Vertebrae Spine/Ortho / Stimulator Neuro Proclaim 5 Ipg - [id number] N/A: [facility] [employer] 03/01/2021 [id number] / Implanted: Qty: 1 on 04/11/2019 by Gregg Zapien MD at [facility] Thoracic Inc [id number] / Vertebrae Explanted Type Area Business Administration Program Chair Device Shelf Model / Identifier Expiration Date Ser ial / Lot Wilfredo Lmbr 40x5.5mm Solera 5.5/6cvd Titnm - [id number] Spine Medtronic [id number] / Implanted: Qty: 2 on 04/26/2015 by Ciro Acosta MD at [facility] Spine/Ortho / Explanted: Qty: 2 on 01/18/2018 at [facility] Procedures Procedure Name Priority Date/Time Associated Comments Diagnosis SCAN-ELECTROCARDIOGRA 12/25/2021 12:00 M EKG AM CDT SCAN-ELECTROCARDIOGRA 12/25/2021 12:00 M EKG AM CDT SCAN-ELECTROCARDIOGRA 12/19/2021 12:00 M EKG AM CDT SCAN-LABORATORY 12/19/2021 12:00 Results for this REPORT AM CDT procedure are i n the results section. SCAN-RADIOLOGY REPORT 12/19/2021 12:00 Re sults for this AM CDT procedure are i n the results section. URINE CULTURE Add On 10/21/2021 2:10 PM [...] results section. from Last 3 Months Results SCAN-ELECTROCARDIOGRAM EKG (12/25/2021 12:00 AM CDT)Only the most recent of3 resultswithin the time period is included. Narrative This result has an attachment that is no t available. Scanner OTHER SCAN-RADIOLOGY REPORT (12/19/2021 12:00 AM CDT) Narrative This result has an attachment that is no t available. Scanner OTHER SCAN-LABORATORY REPORT (12/19/2021 12:00 AM CDT) Narrative This result has an attachment that is no t available. Scanner OTHER (ABNORMAL) URINALYSIS MICROSCOPIC (10/21/2021 2:10 PM CDT) [facility] Method Time Signature RBC 51-100 (A) 0-2, None 10/21/2021 [place] Seen /HPF 2:56 PM [facility] LABORATORY WBC >100 (A) 0-2, 3-5, 10/21/2021 [place] None Seen 2:56 PM T [facility] CENTER /HPF LABORATORY BACTERIA Many (A) None 10/21/2021 [place] Seen, 2:56 PM T [facility] Rare, Few LABORATORY Bacteria/ HPF EPITHELIAL Moderate (A) None 10/21/2021 [facility] Seen, Few 2:56 PM [facility] Epi/HPF LABORATORY Mucus Present 10/21/2021 [place] 2:56 PM [facility] LABORATORY WHITE CELL Present (A) (none) 10/21/2021 [facility] CL[facility] 2:56 PM [facility] LABORATORY Specimen Anatomical Collection Method Collection Time Receive d Time (Source) Location / / Volume Laterality Urine URINE SPECIMEN / Non-Blood / 10/21/2021 2:10 PM 10/21 2:17 Unknown Unknown CDT PM CDT Honey Rogers SOLE ROUNDER URINE Performing Organization Address City/State/ZIP Code Phon e Number [facility] [address] [place] [address] (ABNORMAL) URINE CULTURE (10/21/2021 2:10 PM CDT) [facility] Method Time Signature CULTURE RESULT (A) 10/23/2021 [facility] [employer] 6:39 AM CDT LABORATORY-STAR TRAL LABORATORY CULTURE 10,000-50,000 10/23/2021 [facility] CFU/mL 6:39 AM CDT LABORATORY-STAR Escherichia TRAL coli LABORATORY Specimen Anatomical Collection Method Collection Time Receive d Time (Source) Location / / Volume Laterality Urine URINE SPECIMEN / Non-Blood / 10/21/2021 2:10 PM 10/21 2:17 Unknown Unknown CDT PM CDT Organism Antibiotic Method Susceptibility Escherichia coli TRIMETHOPRIM/SULF <=1/19: S Escherichia coli AMPICILLIN 4: S Escherichia [...] S Escherichia coli NITROFURANTOIN <=16: S Honey Rogers SOLE ROUNDER MICROBIOLOGY Performing Organization Address City/State/ZIP Code Phon e Number [facility] [address] [place] [address] LABORATORY-CENTRAL [address] LABORATORY (ABNORMAL) UA W/ SEDIMENT EXAM REFLEXED PER CRITERIA (10/21/2021 2:10 PM CDT) [facility] Method Time Signature COLOR Yellow Yellow Color 10/21/2021 [place] 2:54 PM T [facility] LABORATORY CLARITY Slightly Clear 10/21/2021 [place] Cloudy (A) Clarity 2:54 PM T [facility] CENTER LABORATORY SPECIFIC >=1.030 (A) 1.010, 10/21/2021 [place] GRAVITY,URINE 1.015, 2:54 PM CDT MEDICAL 1.020, 1.025 CENTER LABORATORY PH,URINE 6.0 6.0, 7.0, 10/21/2021 [place] 8.0, 5.5, 2:54 PM CDT MEDICAL 6.5, 7.5, CENTER 8.5 LABORATORY UROBILINOGEN, Normal Normal EU/dl 10/21/2021 [facility] QUAL[facility] 2:54 PM [facility] LABORATORY PROTEIN, 30 (A) Negative 10/21/2021 [facility] UR[facility] mg/dL 2:54 PM [facility] LABORATORY GLUCOSE, Negative Negative 10/21/2021 [facility] mg/dL 2:54 PM [facility] LABORATORY KETONES,URINE Trace (A) Negative 10/21/2021 [facility] mg/dL 2:54 PM [facility] LABORATORY BILIRUBIN,URI Abnormal (A) Negative 10/21/2021 [facility] Comment: A variety of metabolites and/or medications may result in a positive bilirubin result. Clinical correlation i s recommended. OCCULT BLOOD,URINE Moderate (A) Negative 10/21/2021 2:54 PM [facility] LABOR[facility] NITRITE Positive (A) Negative 10/21/2021 2:54 PM [facility] LABORATORY LEUKOCYTE ESTERASE Small (A) Negative 10/21/2021 2:54 PM [facility] LABORATORY Specimen Anatomical Collection Method Collection Time Receive d Time (Source) Location / / Volume Laterality Urine URINE SPECIMEN / Non-Blood / 10/21/2021 2:10 PM 10/21 2:17 Unknown Unknown CDT PM CDT Honey E Furlong SOLE ROUNDER URINE Performing Organization Address City/State/ZIP Code Phon e Number [facility] [address] [place] [address] from Last 3 Months Insurance Payer Benefit Plan / Subscriber ID Effective Dates Phone Addre ss Type Group MEDICARE PART A MEDICARE PART A [id number] 02/20/2009-Prese ATTN: CLAIMS - HB USE ONLY HB ONLY nt [address] [place] [phone] MEDICARE PART B MEDICARE PART B [id number] 12/21/2009-Prese ATTN: CLAIMS - HB USE ONLY HB ONLY nt [address] [place] [phone] MEDICARE PART B MEDICARE PART B [id number] 12/21/2009-Prese ATTN: CLAIMS - HB USE ONLY HB ONLY nt [address] [facility] [address] MEDICARE PART A MEDICARE PART A [id number] 02/20/2009-Prese ATTN: CLAIMS - HB USE ONLY HB ONLY nt [address] [facility] [address] [employer] MR BLUE CROSS [id number] 03/23/2018-[facility] [address] [address] [place], [place] MR PB ONLY [id number] BLUE CROSS BLUE CROSS [id number] 03/23/2018-[facility] [address] [address] [place], [place] ONLY [id number] BLUE CROSS MR MR BC [place] [id number] 11/21/2014-[facility] [address] t [place]PE[place] [phone] RyleyAra Personal/Famil Self 1955 [address] (Home) [place] [address] Advance Directives Latest Code Status on File [...] 11:29 AM 04/30/2015 3:04 PM Care Teams Education Sales Consultant Relationship Specialty Start Date End Date Arcelia Villaseñor MD PCP - General Family Practice 06/05/[address] [place] [address] [place] [address]
--- NOTE | 2022-01-02 15:17 | CRLHL7_ITS ---
For Patients: As a result of the Century Cures Act, medical imaging exams and procedure reports are released immediately into your electronic medical record. You may view this report before your referring provider. If you have questions, please contact your health care provider. INDICATION: Left leg pain. COMPARISON: None available. FINDINGS: Ultrasound of the venous drainage of the left lower extremity was performed using real-time benton scale imaging (B mode 2D), color flow Doppler and spectral analysis. There is no evidence of deep venous thrombosis. There is normal antegrade flow from the posterior tibial and peroneal veins superiorly through the common femoral vein. There is normal augmentation and compressibility of these veins. The right common femoral vein is widely patent. IMPRESSION: No evidence of deep venous thrombosis on ultrasound examination of the left lower extremity. Dictated by Paresh Baldwin MD @ 01/02/2022 4:37:59 PM (Electronically Signed)
--- NOTE | 2022-01-02 15:19 | ED.GENADULT ---
HPI - General Adult General Chief complaint: Extremity Pain/Injury, Lower Stated complaint: Left leg pain Time Seen by Provider: 01/02/22 14:18 History of Present Illness HPI narrative: This patient comes in reporting left leg pain over the past month or so. She does not report any injury event or strenuous activity. She states that this pain will get worse when she is sitting for more than 10 or 15 minutes. The pain is in the posterior aspect of her left upper leg and her left calf. She has some history of low back pain and states that she has had symptoms on the right side related to this. She states that this pain is severe and disrupting her sleep at night. She called her doctor who prescribed oxycodone. She has been taking this without much relief. Related Data Home Medications Medication Instructions Recorded Confirmed alendronate 70 mg tablet 70 mg PO 01/02/22 aripiprazole 2 mg tablet 2 mg 01/02/22 duloxetine 30 mg capsule,delayed 30 mg PO 01/02/22 release hydrochlorothiazide 25 mg tablet 25 mg 01/02/22 losartan 50 mg tablet 50 mg 01/02/22 omeprazole 40 mg capsule,delayed mg 01/02/22 release sertraline 100 mg tablet 100 mg 01/02/22 trazodone 50 mg tablet 50 mg 01/02/22 Previous Rx's Medication Instructions Recorded gabapentin 100 mg capsule 100 mg PO TID #30 caps 01/02/22 ketorolac 10 mg tablet 10 mg PO Q8H 5 days #15 tabs 01/02/22 methylprednisolone 4 mg tablets in See Rx Instructions PO .COMPLEX 01/02/22 a dose pack (Medrol (Niranjan)) #21 ea tizanidine 4 mg capsule (Zanaflex) 4 mg PO TID PRN muscle spasticity 01/02/22 #20 caps Allergies Allergy/AdvReac Type Severity Reaction Status Date / Time adhesive Allergy Verified 01/02/22 14:39 hydrocodone Allergy Verified 01/02/22 14:39 morphine Allergy Verified 01/02/22 14:39 oxycodone Allergy Verified 01/02/22 14:39 topiramate [From Topamax] Allergy Verified 12/19/21 19:12 cats Allergy Uncoded 12/19/21 19:12 Review of Systems Status of ROS: Reports: 10 or more systems reviewed and unremarkable except as noted in History and below Narrative: Constitutional: No fevers, no weight gain or loss. Eyes: No discharge. No vision changes. HENT: No congestion, no sore throat, no ear pain. Cardiovascular: No chest pain, no palpitations. Respiratory: No shortness of breath, no wheezes, no cough. Gastrointestinal: No abdominal pain, no vomiting, no diarrhea. Genitourinary: No dysuria, no hematuria. Musculoskeletal: Normal range of motion. Pain in the left posterior upper and lower leg. Skin: No rashes, no pruritis. Neurological: No dizziness, weakness, sensory change, speech change. Endo/Heme/Allergies: No bruising or bleeding. No polydipsia. Pysch: no suicidality, no anxiety, no insomnia. All other systems reviewed and are negative. [facility] Social History (Updated 12/19/21 @ 21:08 by Jennifer Mari MD) Smoking Status: Former smoker What tobacco products do you use: cigarettes Years smoked: 25 Smoking quit date/years: >15 years ago Do you use any of these nicotine containing products: None Second hand tobacco smoke exposure: No How often do you have a drink containing alcohol: never How often do you have six or more drinks on one occasion: Never AUDIT-C Alcohol total score: 0 Non-prescribed substance use: denies use service: No Exam Narrative: Exam Narrative: Constitutional: Well-developed, well-nourished, no acute distress. HEENT: Normocephalic, atraumatic. Neck: Normal range of motion. Nontender. Supple. Heart: Regular. No murmurs. Normal rate. Intact distal pulses. Lungs: Clear to auscultation. No chest discomfort. No wheezes, rhonchi, or rales. Abdomen: Normal bowel sounds. Nontender. No rebound tenderness. Genitalia: Deferred. Back: No midline tenderness. Normal range of motion. Extremities: Normal range of motion. No injury. No sign of unilateral swelling. Skin: Intact. No rash. Warm. No erythema or pallor. Neurologic: No altered sensation. No weakness. Alert and oriented. Straight leg raise is negative. Psychiatric: No suicidality. No anxiety or depression. No insomnia. Nursing notes and vitals signs are reviewed. Const: Vital Signs, click to edit/add: Vital Signs - 24 hr 01/02/22 14:30 01/02/22 15:38 Temperature 97.7 F Pulse Rate [Right Pulse Oximeter] 82 70 Respiratory Rate 16 Blood Pressure [Le ft Upper Arm] 131/84 Pulse Oximetry 96 93 Oxygen Delivery Me thod Room Air Room Air Course Vital Signs Vital signs: Initial Vital Signs Temperature 97.7 F 01/02/22 14:30 Temperature Source Temporal Artery Scan 01/02/22 14:30 Pulse Rate 82 01/02/22 14:30 Respiratory Rate 16 01/02/22 14:30 Blood Pressure 131/84 01/02/22 14:30 Blood Pressure Mean 99 01/02/22 14:30 Blood Pressure Position Sitting 01/02/22 14:30 Pulse Oximetry 96 01/02/22 14:30 Oxygen Delivery Method 01/02/22 14:30 Vital Signs Temperature 97.7 F 01/02/22 14:30 Pulse Rate 82 01/02/22 14:30 Respiratory Rate 16 01/02/22 14:30 Blood Pressure 131/84 01/02/22 14:30 Pulse Oximetry 96 01/02/22 14:30 Oxygen Delivery Method 01/02/22 14:30 Temperature 97.7 F 01/02/22 14:30 Pulse Rate 70 01/02/22 15:38 Respiratory Rate 16 01/02/22 14:30 Blood Pressure 131/84 01/02/22 14:30 Pulse Oximetry 93 01/02/22 15:38 Oxygen Delivery Method 01/02/22 15:38 Medical Decision Making MDM Narrative Medical decision making narrative: This patient comes in with signs and symptoms suggestive of a sciatica condition. An ultrasound of the left lower extremity was ordered to evaluate her vasculature and rule out deep venous thrombosis. The patient received an intramuscular injection of Dilaudid. Ultrasound shows no sign of venous thrombus. The patient reports significant improvement with the injection of medicine. She is in touch with her primary physician who did prescribe oxycodone. I stated that that medicine will need to be managed by her primary physician. She did received prescriptions today for gabapentin, Flexeril, Toradol, and Medrol Dosepak. IA recommended that she follow-up with the spine clinic locally and provided a phone number to arrange an appointment if desired. Discharge Plan Discharge Clinical Impression: Sciatica Patient Disposition: Home, Self-Care Condition: Improved Additional Instructions: Take medication as needed and indicated. Follow up with primary physician or consider a visit to our spine clinic by calling [phone] to arrange for an appointment. Prescriptions: New gabapentin 100 mg capsule 100 mg PO TID Qty: 30 2RF ketorolac 10 mg tablet 10 mg PO Q8H 5 Days Qty: 15 0RF methylprednisolone [Medrol (Niranjan)] 4 mg tablets,dose pack See Rx Instructions .ROUTE .COMPLEX Qty: 21 0RF Rx Instructions: orally per package directions tizanidine [Zanaflex] 4 mg capsule 4 mg PO TID PRN (Reason: muscle spasticity) Qty: 20 0RF No Action alendronate 70 mg tablet 70 mg PO aripiprazole 2 mg tablet 2 mg duloxetine 30 mg capsule,delayed release(DR/EC) 30 mg PO hydrochlorothiazide 25 mg tablet 25 mg losartan 50 mg tablet 50 mg sertraline 100 mg tablet 100 mg omeprazole 40 mg capsule,delayed release(DR/EC) Label Comments: TAKE 1 CAPSULE BY MOUTH EVERY DAY 30 MINUTES BEFORE EATING trazodone 50 mg tablet 50 mg Label Comments: TAKE 1.5 TO 2 TABLETS BY MOUTH EVERY NIGHT AT BEDTIME NEEDED FOR SLEEP. TAKE 45 MINUTES TO 1 HOUR BEFORE BEDTIME Follow Up/Referrals: Provider,Not a Local [Primary Care Provider] - Stand Alone Forms: [facility] Info Instructions
[2022-01-02] MEDS: HYDROmorphone 0.5 mg/0.5 ml inj 1 MG IM (15:26)
[2022-01-02 15:38] VITALS: PULSE 70; O2SAT 93
[2022-01-02 16:27] VITALS: BP 135/67; PULSE 75; O2SAT 95
== END 2022-01-02 16:31 | disposition home or self-care (01) ==
PROVIDERS: Emergency Provider Emergency Medicine Emergency Medical Services
DX: M54.32 Sciatica, left side (principal)
CPT/HCPCS: 93971; 96372; 99284; J1170